=== PATIENT | female | born 1935 ===

== ENCOUNTER 2024-03-10 09:42 | Inpatient (IN) | payer OTHER, SELFPAY ==
[2024-03-10] VITALS (8 sets, daily range): BP systolic 106–182; BP diastolic 55–79; PULSE 74–95; RESP 14–24; TEMP 36.9–37.5; O2SAT 94–99; BMI 29.9
--- NOTE | ~2024-03-10 | CT_ITS ---
EXAMINATION: CT ABDOMEN AND PELVIS WITHOUT CONTRAST CLINICAL INFORMATION: Peritoneal abdomen COMPARISON: None available. TECHNIQUE: Multidetector volumetric imaging was performed from the superior aspect of the liver through the pubic symphysis. Sagittal and coronal reformatted images were obtained on the technologist's workstation. This CT examination was performed using dose optimization techniques as appropriate, variously including the following: *Automated exposure control *Adjustment of mA and/or kV according to patient size (this includes techniques or standardized protocols for targeted exams where dose is matched to indication/reason for exam; i.e. extremities or head) *Use of iterative reconstruction technique DLP: 491 mGy-cm FINDINGS: LUNG BASES: Emphysematous changes bibasilar atelectasis versus scarring. No pneumothorax. No large pleural effusion. Slight elevation right hemidiaphragm. LIVER, GALLBLADDER, AND BILIARY TREE: The liver is normal in size, shape, and attenuation. No focal hepatic lesion or biliary ductal dilatation is present. Intraluminal gallbladder calculi without wall thickening. Trace pericholecystic fluid is nonspecific in the setting of ascites. PANCREAS: Pancreas appears edematous with peripancreatic inflammatory changes and fluid greatest along the head tracking into the right upper quadrant and bilateral paracolic gutters suggesting pancreatitis. SPLEEN: Unremarkable. ADRENAL GLANDS: Unremarkable. KIDNEYS AND URETERS: The kidneys are normal in size, shape, and attenuation. No hydronephrosis, hydroureter, or calculi seen. No perinephric stranding. BLADDER: Unremarkable. GASTROINTESTINAL TRACT: Mild thickening of the level of the duodenum which may reflect reactive changes from pancreatitis. Colonic diverticulosis without acute diverticulitis. Surgical anastomosis level of the sigmoid colon. The small and large bowel are unremarkable. The appendix is not definitively visualized. ABDOMINAL WALL: No significant hernia is appreciated. LYMPH NODES/MESENTERY: No enlarged lymph nodes per size criteria. Free fluid noted along the right peripancreatic space, right paracolic gutter and to lesser extent the left paracolic gutter. VASCULAR: Abdominal aorta is nonaneurysmal. PELVIC VISCERA: Anteverted uterus. Calcifications along the uterine fundus potentially representing calcified fibroids. OSSEOUS STRUCTURES: Osteopenia. Slight grade 1 anterolisthesis of L4 and L5. Multilevel degenerative changes of the thoracolumbar lumbosacral spine. CT/CT abdomen pelvis wo IV con IMPRESSION: 1. Pancreas appears edematous with peripancreatic inflammatory changes and fluid greatest along the head tracking into the right upper quadrant and bilateral paracolic gutters suggesting pancreatitis. 2. Mild thickening of the level of the duodenum which may reflect reactive changes from pancreatitis. 3. Intraluminal gallbladder calculi without wall thickening. Trace pericholecystic fluid is nonspecific in the setting of ascites. 4. Colonic diverticulosis without acute diverticulitis.
--- NOTE | ~2024-03-10 | US_ITS ---
EXAMINATION: US ABDOMEN LIMITED CLINICAL INFORMATION: Gallstones/pancreatitis. COMPARISON: CT abdomen and pelvis 03/10/2024. TECHNIQUE: Real-time imaging of the right upper quadrant abdominal viscera. Technically limited study secondary to body habitus. FINDINGS: PANCREAS: Normal. The visualized pancreatic head and body are normal in appearance. The remainder of the pancreas is obscured from visualization by the overlying bowel gas. LIVER: Normal. The liver is normal in size. The liver contour is normal. Parenchymal echogenicity is normal. No focal hepatic lesion. There is no intrahepatic biliary duct dilatation seen. GALLBLADDER: The gallbladder is physiologically distended. Multiple mobile gallstones are present. No evidence of gallbladder wall thickening or pericholecystic fluid. COMMON BILE DUCT: Normal in caliber measuring 0.4 cm in diameter. RIGHT KIDNEY: Limited. No hydronephrosis. No renal calculi or focal parenchymal lesions. The kidney measures 7.6 cm in maximum dimension. FREE FLUID: None. US/US abdomen limited IMPRESSION: 1. There is cholelithiasis. 2. Technically limited ultrasound examination of the pancreas and right kidney.
--- NOTE | ~2024-03-10 | FL_ITS ---
EXAMINATION: XR FLUOROSCOPY WITH IMAGES CLINICAL INFORMATION: Cholangiogram. COMPARISON: MRCP. TECHNIQUE: Fluoroscopy Supervised By: Dr. Albino Cabrera Fluoroscopy Time: 1.8 minutes Cumulative Dose: 79.4 mGy-cm DAP: 21.6 Gy-cm2 Images: 8. FINDINGS: Imaging from an intraoperative cholangiogram is obtained which demonstrates filling of the cystic duct as well as common bile duct. There may be some extravasation of contrast seen around the donal hepatis and the pancreatic duct. No definite filling defects are seen. Please see Dr. Albino Cabrera's procedure note for full details FL/FL guidance in OR IMPRESSION: Fluoroscopy and spot films provided during intraoperative cholangiogram.
--- NOTE | ~2024-03-10 | MR_ITS ---
EXAMINATION: MR ABDOMEN WITHOUT CONTRAST CLINICAL INFORMATION: Rule out common bile duct stone. COMPARISON: Previous CT of the abdomen and pelvis and abdominal ultrasound 03/10/2024. TECHNIQUE: MR abdomen is performed without gadolinium contrast. MRCP sequences were also performed. FINDINGS: LUNG BASES: The visualized lung bases are unremarkable. LIVER, GALLBLADDER, AND BILIARY TREE: Slightly scalloped or nodular contour of the liver questionable for mild cirrhotic change. Liver is normal in signal without evidence of significant fatty infiltration. No focal liver lesion. The gallbladder is upper normal in size. There are small gallstones. The gallbladder wall upper normal in thickness measuring 3 mm. There is a small amount of pericholecystic fluid. There is a small amount of generalized ascites. There is no intra or extrahepatic biliary duct dilatation. The common bile duct measures 5 mm. No filling defect is seen. PANCREAS: There may be interstitial edema in the head of the pancreas. The pancreas is otherwise normal in signal. The pancreas is slightly prominent, head of the pancreas measuring 3.3 cm. There is stranding of the surrounding fat and small amount of fluid surrounding the pancreas and in the left anterior pararenal fascia and lateral conal fascia questionable for mild pancreatitis. There is irregularity of the main pancreatic duct with areas of dilatation and narrowing. Pancreatic duct measures maximum 5 mm in the head/neck of the pancreas. No filling defect seen. There may be abnormal pancreatic duct anatomy with continuation of the duct of [place]or[place]. SPLEEN: Unremarkable. ADRENAL GLANDS: Unremarkable. KIDNEYS AND URETERS: The kidneys are normal in size and shape. No hydronephrosis. Small bilateral renal cysts. No imaging follow up recommended. GASTROINTESTINAL TRACT: No bowel obstruction. No ascites or fluid collection. ABDOMINAL WALL: No significant hernia is appreciated. LYMPH NODES: No lymphadenopathy. VASCULAR: Unremarkable. OSSEOUS STRUCTURES: Marrow signal normal. MR/MR MRCP IMPRESSION: 1. Question mild cirrhotic changes of the liver. No intra or extrahepatic biliary duct dilatation or filling defect in the common bile duct to suggest stone. 2. Gallstones. Gallbladder upper normal in size with upper normal-size gallbladder wall. Small amount of pericholecystic fluid. Findings are equivocal for cholecystitis. 3. Slightly prominent pancreas with a small amount of surrounding fluid and interstitial edema in the head of the pancreas questionable for acute pancreatitis. There is irregularity of the main pancreatic duct with areas of dilatation and narrowing. Main pancreatic duct measures up to 5 mm. May be aberrant pancreatic duct anatomy with continuation of the duct of [place].
[2024-03-10 10:32] LABS: Basophils Percent Auto 0.2 % (0-2); Hematocrit 38.7 % (37.0-47.0); Hemoglobin 13.2 g/dl (12.0-16.0); Imm Gran Abs Auto 0.05 X10*3/uL (0.00-0.03); Imm Gran Pct Auto 0.4 % (0.0-0.4); Lymphocytes Absolute Auto 0.3 X10*3/uL (1.2-4.9); Lymphocytes Percent Auto 2.4 % (20-40); MANUAL DIFF FLAG SCAN; Mean Corpuscular HGB Conc 34.1 g/dl (31.0-35.0); Mean Corpuscular Hemoglobin 31.4 pg (27.0-33.0); Mean Corpuscular Volume 92.1 fL (80.0-98.0); Mean Platelet Volume 10.5 fL (9.4-12.3); Monocytes Absolute Auto 0.8 X10*3/uL (0.1-1.2); Neutrophils Absolute Auto 11.3 x10*3/uL (2.0-8.3); Platelet Count 171 X10*3/uL (160-400); Red Cell Distribution Width 12.8 % (11.0-16.0); SCAN SMEAR FLAG 1; White Blood Count 12.5 X10*3/uL (4.8-10.8)
[2024-03-10 10:50] LABS: Alanine Aminotransferase 101 U/L (0-31); Albumin Level 3.8 g/dL (3.5-5.0); Alkaline Phosphatase 104 U/L (39-117); Anion Gap 15 (12-20); Aspartate Amino Transferase 275 U/L (5-31); Blood Urea Nitrogen 16 mg/dL (9-16); Calcium 9.6 mg/dL (8.4-10.2); Carbon Dioxide 25 mmol/L (22-29); Chloride 106 mmol/L (96-108); Creatinine Clr Calc Pharmacy 42.8; Estimated Glomerular Filt Rate > 60; Glucose Random 134 mg/dL (60-115); Potassium 3.9 mmol/L (3.3-5.1); Sodium 142 mmol/L (135-145); Total Protein 7.6 g/dL (6.5-8.0)
--- NOTE | 2024-03-10 10:52 | ED.ABDPAIN ---
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 patient with increased abdominal pain and vomiting starting last night. She denies any fever. MD elicited complaint: abdominal pain Onset (ago): hour(s) Pain Consistency: constant Location: diffuse Severity: moderate Radiation: back Related Data Allergies Allergy/AdvReac Type Severity Reaction Status Date / Time Iodinated Contrast Media Allergy Mild UNKNOWN Verified 03/10/24 09:56 [IV Dye, Iodine Containing] acetaminophen [From Percocet] AdvReac Mild ITCHING Verified 03/10/24 09:56 oxycodone [From Percocet] AdvReac Mild ITCHING Verified 03/10/24 09:56 Review of Systems Review of Systems Yes all other systems are reviewed and are negative Denies Sensory deficit (Neuro) PMFSH Social History Social History Smoked in Last 30 Days: No Use of substances other than those prescribed or required for medical reasons: No Advance Directives: No Advance Directives Information Provided: No Do you have a plan to hurt others: No Plan Physical Exam ED Vital Signs: Vital Signs - 24 hr 03/10/24 09:56 03/10/24 10:36 03/10/24 11:23 Temperature 99.2 F 99.5 F Pulse Rate 85 82 76 Respiratory Rate 18 20 14 Blood Pressure 182/71 H 169/59 H 136/64 Pulse Oximetry 97 99 94 Oxygen Delivery Method Room Air Room Air Room Air 03/10/24 12:33 Temperature Pulse Rate 94 Respiratory Rate 20 Blood Pressure 124/56 L Pulse Oximetry 95 Oxygen Delivery Method Room Air BMI result Body Mass Index 29.9 Const Other: elderly obese female in moderate pain Orientation/consciousness: oriented to person and patient oriented x3 Limitations: no limitations HENMT Head: Yes normal to inspection Ears: external ears normal General nose exam: Normal external nose present Mouth: Normal oral and palatal mucosa present and oropharynx normal Throat: Yes posterior oropharynx normal Eyes General: appearance normal, both eyes and all related structures Neck Neck: Yes normal visual inspection Chest Chest palpation & inspection: normal inspection of the chest Resp Auscultation: clear to auscultation bilaterally Cardio Jugular venous distension: no JVD Rate: regular rate Rhythm: regular rhythm Heart sounds: S1 normal heart sound present and S2 normal heart sound present GI Other: diffuse tenderness and guarding General: Yes no CVA tenderness Back/Spine/Pelvis Back: no CVA tenderness Skin General skin exam: no rashes or lesions noted Neuro General: oriented to person and patient oriented x3 Cranial nerves: Yes CN's II-XII intact bilaterally Motor exam (neuro): 5/5 motor strength present throughout Sensory Exam: No Sensory deficit (Neuro) Extrem General: Yes normal to inspection Psych Appearance: grossly normal Course Reevaluation(s) Reevaluation #1: patient with severe pancreatitis will admit. Time: 13:25 Reevaluation #2: I spent 40 minutes of critical care, with interventions, assessments, speaking to patient, consultants, and family. Time: 13:25 Medical Decision Making Differential Diagnosis Differential Diagnoses: The differential diagnosis associated with the presentation includes (bowel perforation, cholecystitis, gastritis, pancreatitis, hepatitis) Admission/Observation Consideration of admission/observation: Escalation of care including admission/observation considered (upon arrival patient was considered for admission) Consult Healthcare Provider Management of the patient was discussed with: Hospitalist Lab Data 03/10/24 10:26 03/10/24 10:26 Labs: Lab Results 03/10/24 Range/Units 10:26 WBC 12.5 H (4.8-10.8) X10*3/uL RBC 4.20 (4.20-5.50) X10*6/uL Hgb 13.2 (12.0-16.0) g/dl Hct 38.7 (37.0-47.0) % MCV 92.1 (80.0-98.0) fL MCH 31.4 (27.0-33.0) pg MCHC 34.1 (31.0-35.0) g/dl RDW 12.8 (11.0-16.0) % Plt Count 171 (160-400) X10*3/uL MPV 10.5 (9.4-12.3) fL Immature Gran % (Auto) 0.4 (0.0-0.4) % Neut % (Auto) 91.0 H (45-73) % Lymph % (Auto) 2.4 L (20-40) % [place] % (Auto) 6.0 (2-11) % Eos % (Auto) 0.0 (0-4) % Baso % (Auto) 0.2 (0-2) % Lymph # (Auto) 0.3 L (1.2-4.9) X10*3/uL [place] # (Auto) 0.8 (0.1-1.2) X10*3/uL Eos # (Auto) 0.0 (0.0-0.4) X10*3/uL Baso # (Auto) 0.0 (0.0-0.2) X10*3/uL Abs Immat Gran (auto) 0.05 H (0.00-0.03) X10*3/uL Absolute Neuts (auto) 11.3 H (2.0-8.3) x10*3/uL Absolute Nucleated RBC 0.000 (0.0-0.012) X10*3/uL Nucleated RBC % (auto) 0.0 (0.0-0.2) /100WBC Smear Tech's Comments VERIFIED Sodium 142 (135-145) mmol/L Potassium 3.9 (3.3-5.1) mmol/L Chloride 106 (96-108) mmol/L Carbon Dioxide 25 (22-29) mmol/L Anion Gap 15 (12-20) BUN 16 (9-16) mg/dL Creatinine 0.89 (0.5-1.4) mg/dL Estim Creat Clear Calc 42.8 Estimated GFR > 60 Random Glucose 134 H (60-115) mg/dL Calcium 9.6 (8.4-10.2) mg/dL Total Bilirubin 1.0 (0.0-1.0) mg/dL AST 275 H (5-31) U/L ALT 101 H (0-31) U/L Alkaline Phosphatase 104 (39-117) U/L Total Protein 7.6 (6.5-8.0) g/dL Albumin 3.8 (3.5-5.0) g/dL Lipase > 3000 H (8-78) U/L Independent Interpretation I performed an independent interpretation of an: CT Scan (pancreas edema with surrounding fuzzy fat) Radiology Impression Discussion of test interpretation with radiology: I have reviewed the radiologist's reading. Independent Historian Clinical information obtained from an independent historian. History obtained from or confirmed by: EMS Prescription Management I considered prescription management with: Antibiotic (no evidence of UTI will not give abx at this time) Medications Administered Generic Name Dose Route Start Last Admin Trade Name Freq PRN Reason Stop Dose Admin Sodium Chloride 1,000 mls @ 250 mls/hr 03/10/24 11:00 03/10/24 11:18 Ns IVCONT 03/10/24 14:59 250 mls/hr .Q4H ALANA Administration Discontinued Medications Generic Name Dose Route Start Last Admin Trade Name Freq PRN Reason Stop Dose Admin Morphine Sulfate 4 mg 03/10/24 11:33 03/10/24 11:57 Morphine Sulfate 4 Mg/Ml Cartridge IVPUSH 03/10/24 11:34 4 mg ONCE ONE Administration Protocol Ondansetron HCl 4 mg 03/10/24 10:49 03/10/24 11:18 Ondansetron Hcl 4 Mg/2 Ml Vial IVPUSH 03/10/24 10:50 4 mg ONCE ONE Administration Pantoprazole Sodium 40 mg 03/10/24 10:50 03/10/24 11:18 Pantoprazole Sodium 40 Mg/10 Ml Vial IVPUSH 03/10/24 10:51 40 mg ONCE ONE Administration Discharge Plan Discharge Clinical Impression: Pancreatitis Patient Disposition: Admitted As Inpatient Print Language: [place]
[2024-03-10 10:56] LABS: SLIDE REVIEW VERIFIED
[2024-03-10] MEDS: Pantoprazole Sodium 40 MG/10 ML VIAL IVPUSH (11:18)
[2024-03-10] MEDS: ondansetron HCL 4 MG/2 ML VIAL IVPUSH (11:18)
[2024-03-10] MEDS: 0.9 % Sodium Chloride 1,000 ML 250 ML IVCONT (11:18)
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
[2024-03-10 11:30] LABS: Lipase > 3000 U/L (8-78)
[2024-03-10] MEDS: Morphine Sulfate 4 MG/ML CARTRIDGE IVPUSH (11:57)
--- NOTE | 2024-03-10 14:48 | PHA.MEDREC ---
Pharmacy Consult ? Medication Reconciliation Pharmacy has completed the medication reconciliation. Patient states they take gabapentin 300mg BID instead of once daily. Patient states they take a yellow cap and dark blue cap eye drops . Called pharmacy and confirmed they only take latanoprost and combigan.
[2024-03-10 16:01] LABS: Appearance Urine Clear; Color Urine Dark Yellow; Glucose Urine UA Negative (Negative); Leukocyte Esterase Urine Small (1+) (Negative); Nitrite Urine Negative (Negative); Specific Gravity - Urine 1.015 (1.005-1.025); UMIC TRIGGER UACC YES; Urine Blood Trace (Negative); Urine Ketones Negative (Negative); Urine Protein 30 (1+) mg/dL (Neg-Trace)
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
[2024-03-10] MEDS: Lactated Ringers 1,000 ML 100 ML IVCONT (16:24)
[2024-03-10 16:35] LABS: Bacteria Urine None Seen (None Seen); Hyaline Casts Urine 0-2 /LPF (0-2); RBC Urine 0-2 /HPF (0-2); UACC Culture Trigger YES; WBC Urine 0-5 /HPF (0-5)
--- NOTE | 2024-03-10 16:57 | PM.GICN ---
History of Present Illness Data of Consult Service Date: 03/10/24 Requesting physician: Moraima Chan Primary Care Provider: Gisselle Christensen MD HPI Reason for consult: Acute pancreatitis, elevated LFTs 88 year old female with glaucoma and hypothyroidism seen at [facility] [place] [facility] on 03/10/2024 with 1 day history of abdominal pain, nausea and vomiting. Pt complains of feeling sick with nausea and vomiting (with some black specs) around 5 pm yesterday (about 2 hrs after having a meal) She lied down and woke up at 3 am with cramping abdominal pain and vomiting and was unable to sleep, called 911 and was brought to [facility] [place] [facility] Pt describes the pain as 10/10 in severity, generalized and associated with low back pain. Patient denies fever, chills or sweating. She noted some diarrhea yesterday and none today. She gives a hx of chronic back pain and was prescribed gabapentin which does not help. She reports her weight has been stable over the past several months. Patient denies a history of snoring or sleep apnea. He denies past or current history of smoking or ETOH abuse. Pt is a and lives alone, her son lives close by. 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 Patient denies known family history of colon polyps, colon cancer or GI malignancy 03/10/[address] SCAN SHOWED: 1. Pancreas appears edematous with peripancreatic inflammatory changes and fluid greatest along the head tracking into the right upper quadrant and bilateral paracolic gutters suggesting pancreatitis. 2. Mild thickening of the level of the duodenum which may reflect reactive changes from pancreatitis. 3. Intraluminal gallbladder calculi without wall thickening. Trace pericholecystic fluid is nonspecific in the setting of ascites. 4. Colonic diverticulosis without acute diverticulitis. Review of Systems Review of Systems: Denies any recent fever chills or decrease in appetite respiratory denies any shortness of breath or cough cardiovascular denied chest pain gastrointestinal denies any dysphagia abdominal pain nausea vomiting or diarrhea genitourinary denies any dysuria frequency or hematuria musculoskeletal denies any joint pain or swelling neuropsych denies any weakness or seizures all other systems reviewed are negative PMFSH Past Medical History Medical History Glaucoma Hypothyroidism Social History Social History Household Members: None Household Members Other:: Lives alone Housing: Apartment Do you presently have visiting nurse or other home services: Yes Alcohol intake: never Patient Tobacco Use Status: Never used Tobacco Second Hand Smoke Exposure: No service: No Meds Allergies Allergy/AdvReac Type Severity Reaction Status Date / Time Iodinated Contrast Media Allergy Severe Difficulty Verified 03/11/24 09:32 [IV Dye, Iodine Containing] Breathing acetaminophen [From Percocet] AdvReac Mild ITCHING Verified 03/10/24 09:56 oxycodone [From Percocet] AdvReac Mild ITCHING Verified 03/10/24 09:56 Active Medications: Current Medications Acetaminophen (Acetaminophen 325 Mg Tablet) 650 mg PO Q6H PRN PRN Reason: Pain, Mild (Pain Scale 1-3), fever or headache Brimonidine Tartrate (Brimonidine Tartrate 0.2% Oph 5 Ml Bottle) 1 drop EYE-BOTH BID [facility] Calcium Carbonate (Calcium Carbonate 750 Mg Tab.Chew) 750 mg PO Q4H PRN PRN Reason: Heartburn Calcium Carbonate/Cholecalciferol (Calcium + Vitamin D 250 Mg Tablet) 500 mg PO BID [facility] Gabapentin (Gabapentin 300 Mg Capsule) 300 mg PO BID [facility] Lactated Ringer's (Lr) 1,000 mls @ 100 mls/hr IVCONT .Q10H [facility] Last Admin: 03/10/24 16:24 Dose: 100 mls/hr Latanoprost (Latanoprost 0.005 % Ophth Sheila 2.5 Ml Drops) 1 drop EYE-BOTH BEDTIME [facility] Levothyroxine Sodium (Levothyroxine Sodium 75 Mcg Tablet) 75 mcg PO DAILY@0600 [facility] Magnesium Hydroxide (Milk Of Magnesia 30 Ml Oral.Susp) 30 ml PO DAILY PRN PRN Reason: Constipation Melatonin (Melatonin 3 Mg Tablet) 6 mg PO BEDTIME PRN PRN Reason: Insomnia Melatonin (Melatonin 3 Mg Tablet) 6 mg PO BEDTIME [facility] Multivitamins/Vitamin C (Multivitamin Tablet) 1 tab PO DAILY [facility] Ondansetron HCl (Ondansetron Hcl 4 Mg/2 Ml Vial) 4 mg IVPUSH Q8H PRN PRN Reason: Nausea and Vomiting Sodium Chloride (0.9 % Sodium Chloride Flush 3 Ml Syringe) 3 ml IVFLUSH QSHIFT [facility] Timolol Maleate (Timolol Maleate 0.5 % Oph Sheila 5 Ml Drbtl) 1 drop EYE-BOTH BID [facility] Home Medications ?Medication ?Instructions ?Recorded ?Confirmed ?Last Taken ?Type acetaminophen 325 mg tablet 650 mg PO Q6H PRN Pain 03/10/24 03/10/24 Unknown History (Tylenol) brimonidine 0.2 %-timolol 0.5 % 1 drp ophthalmic (eye) BID 03/10/24 03/10/24 03/09/24 History eye drops (Combigan) calcium carbonate 600 mg-vitamin 1 tab PO BID 03/10/24 03/10/24 03/09/24 History D3 10 mcg (400 unit) tablet gabapentin 300 mg capsule 300 mg PO BID 03/10/24 03/10/24 03/09/24 History latanoprost 0.005 % eye drops 1 drp ophthalmic (eye) BEDTIME 03/10/24 03/10/24 03/09/24 History levothyroxine 75 mcg tablet 75 mcg PO DAILY@0600 03/10/24 03/10/24 03/09/24 History melatonin 5 mg tablet 5 mg PO BEDTIME 03/10/24 03/10/24 03/09/24 History multivitamin with folic acid 400 1 tab PO DAILY 03/10/24 03/10/24 03/09/24 History mcg tablet (Daily-Vira (with folic acid)) Physical Exam Vital Signs: Vital Signs: Last Vital Signs Temp 98.8 F 03/10/24 15:21 Pulse 93 03/10/24 15:21 Resp 18 03/10/24 15:21 BP 106/79 03/10/24 15:21 Pulse Ox 95 03/10/24 15:21 O2 Del Method Room Air 03/10/24 15:21 BMI result Body Mass Index 29.9 Const: General: in distress (due to abdominal pain) Nutritional Appearance: overweight Orientation/consciousness: patient oriented x3 Limitations: language barrier (is able to converse in Maltese) HEENT: Head: Yes normal to inspection Ears: hearing grossly normal bilaterally Eyes: Sclerae: sclerae normal Pupils: Equal, round and reactive pupils present Neck: Neck: Yes normal visual inspection Chest: Chest palpation & inspection: normal inspection of the chest Resp: Effort & Inspection: normal respiratory effort Auscultation: clear to auscultation bilaterally Cardio: Palpation: normal PMI Rate: regular rate Rhythm: regular rhythm Heart sounds: S1 normal heart sound present, S2 normal heart sound present and no murmurs GI: Palpation (GI): Soft to palpation, nontender and No hepatosplenomegaly present Auscultation: normal bowel sounds Rectal Exam - Female: deferred Skin: General skin exam: no rashes or lesions noted Neuro: General: patient oriented x3, gait normal and moves all extremities Cranial nerves: Yes Equal, round and reactive pupils present Psych: Appearance: grossly normal Mental Status: mental status grossly normal Results Labs 03/16/24 05:26 03/16/24 05:26 Labs: Short CBC 03/10/24 Range/Units 10:26 WBC 12.5 H (4.8-10.8) X10*3/uL Hgb 13.2 (12.0-16.0) g/dl Hct 38.7 (37.0-47.0) % Plt Count 171 (160-400) X10*3/uL BMP 03/10/24 10:26 Sodium 142 Potassium 3.9 Chloride 106 Carbon Dioxide 25 BUN 16 Creatinine 0.89 Calcium 9.6 Liver Function 03/10/24 Range/Units 10:26 Total Bilirubin 1.0 (0.0-1.0) mg/dL AST 275 H (5-31) U/L ALT 101 H (0-31) U/L Alkaline Phosphatase 104 (39-117) U/L Albumin 3.8 (3.5-5.0) g/dL Urine 03/10/24 Range/Units 15:48 Urine Color Dark Yellow Urine Appearance Clear Urine pH 7.0 (5.0-9.0) Ur Specific [place] 1.015 (1.005-1.025) Urine Protein 30 (1+) H (Neg-Trace) mg/dL Urine Glucose (UA) Negative (Negative) mg/dL Assessment and Plan (1) Cholelithiasis: Status: Acute (2) Elevated LFTs: Status: Acute (3) Pancreatitis: Status: Acute Plan 88 YF with glaucoma and hypothyroidism seen at [facility] [place] [facility] on 03/10/2024 with 1 day history of abdominal pain, nausea and vomiting. He denies past or current history of smoking or ETOH abuse. Labs showed Lipase of > 3000, AST 275 and ALT 101 with normal bilirubin and alkaline phosphatase Pt likely has biliary pancreatitis related to gallstones. 03/10/[address] SCAN SHOWED: 1. Pancreas appears edematous with peripancreatic inflammatory changes and fluid greatest along the head tracking into the right upper quadrant and bilateral paracolic gutters suggesting pancreatitis. 2. Mild thickening of the level of the duodenum which may reflect reactive changes from pancreatitis. 3. Intraluminal gallbladder calculi without wall thickening. Trace pericholecystic fluid is nonspecific in the setting of ascites. RECOMMENDATIONS: 1. Bowel rest with IV hydration with lactated Ringer's and IV antiemetics and pain medications 2. Check Triglyceride levels (pending)Follow renal function, calcium, phosphorus, magnesium and lipase daily 3. If LFTs do not improve, obtain an MRCP to rule out choledocholithiasis (May need an ERCP if MRCP shows CBD obstruction) 4. General surgery consult to evaluated foe Lap Erlinda after pancreatitis resolves ADDENDUM: DISCHARGE SUMMARY: 88-year-old woman treated for acute gallstone pancreatitis. Lipase initially greater than 3000, triglycerides 70. Abdominal ultrasound showing multiple mobile gallstones. MRCP showed gallstones and cholecystitis. She was treated with IV fluids and pain medication. Status post laparoscopic cholecystectomy on 03/13/2024. Diet was advanced, patient has been able to eat. She did have some constipation that was treated with MiraLax and suppositories. She reports still having some mild abdominal pain, seen and evaluated by General surgery who thinks this is related to incisional pain. Physical therapy evaluated the patient recommended short-term rehab but patient does not want to go and would rather return home with services. Procedures Date of Service Date of Service: 03/19/24
[2024-03-10 17:06] LABS: Triglycerides 70 mg/dL (<150)
[2024-03-10] MEDS: Acetaminophen 325 MG TABLET 650 MG PO (18:04)
[2024-03-10] MEDS: Morphine Sulfate 2 MG/ML CARTRIDGE 0.5 MG IVPUSH (19:45)
[2024-03-10] MEDS: Calcium + Vitamin D 250 MG TABLET 500 MG PO (20:57)
[2024-03-10] MEDS: Gabapentin 300 MG CAPSULE PO (20:57)
[2024-03-10] MEDS: Melatonin 3 MG TABLET 6 MG PO (20:57)
[2024-03-10] MEDS: timoloL maleate 0.5 % Oph Sol 5 ML DRBTL 1 DROP EYE-BOTH (20:57)
[2024-03-10] MEDS: Brimonidine Tartrate 0.2% Oph 5 ML BOTTLE 1 DROP EYE-BOTH (20:58)
[2024-03-10] MEDS: Latanoprost 0.005 % Ophth Sol 2.5 ML DROPS 1 DROP EYE-BOTH (20:58)
--- NOTE | 2024-03-10 22:27 | PC.NURSE ---
Patient medicated for PM, c/o abd pain medicated per NOV, informed patient she will be NPO after midnight, continues to be clears only now, iv fluids infusing, patient's eye drops at bedside.
[2024-03-11] VITALS (8 sets, daily range): BP systolic 124–169; BP diastolic 71–96; PULSE 79–88; RESP 17–18; TEMP 36.4–36.7; O2SAT 86–95
[2024-03-11] MEDS: Lactated Ringers 1,000 ML 100 ML IVCONT ×2 (03:18→13:27)
[2024-03-11] MEDS: 0.9 % Sodium Chloride Flush 3 ML SYRINGE IVFLUSH (03:19)
[2024-03-11 06:07] LABS: MANUAL DIFF FLAG NO
[2024-03-11 06:12] LABS: Basophils Percent Auto 0.1 % (0-2); Eosinophils Percent Auto 0.3 % (0-4); Hematocrit 36.3 % (37.0-47.0); Hemoglobin 12.1 g/dl (12.0-16.0); Imm Gran Abs Auto 0.08 X10*3/uL (0.00-0.03); Imm Gran Pct Auto 0.8 % (0.0-0.4); Lymphocytes Absolute Auto 1.6 X10*3/uL (1.2-4.9); Lymphocytes Percent Auto 15.7 % (20-40); Mean Corpuscular HGB Conc 33.3 g/dl (31.0-35.0); Mean Corpuscular Hemoglobin 31.8 pg (27.0-33.0); Mean Corpuscular Volume 95.3 fL (80.0-98.0); Mean Platelet Volume 10.3 fL (9.4-12.3); Monocytes Absolute Auto 0.9 X10*3/uL (0.1-1.2); Monocytes Percent Auto 8.9 % (2-11); Neutrophils Absolute Auto 7.7 x10*3/uL (2.0-8.3); Neutrophils Percent Auto 74.2 % (45-73); Platelet Count 136 X10*3/uL (160-400); Red Blood Count 3.81 X10*6/uL (4.20-5.50); Red Cell Distribution Width 13.3 % (11.0-16.0); White Blood Count 10.4 X10*3/uL (4.8-10.8)
[2024-03-11 06:22] LABS: Alanine Aminotransferase 65 U/L (0-31); Albumin Level 3.2 g/dL (3.5-5.0); Alkaline Phosphatase 80 U/L (39-117); Anion Gap 10 (12-20); Aspartate Amino Transferase 116 U/L (5-31); Bilirubin Direct 0.3 mg/dL (0.0-0.5); Bilirubin Total 0.8 mg/dL (0.0-1.0); Blood Urea Nitrogen 18 mg/dL (9-16); Calcium 8.6 mg/dL (8.4-10.2); Carbon Dioxide 29 mmol/L (22-29); Chloride 108 mmol/L (96-108); Creatinine Clr Calc Pharmacy 50.7; Estimated Glomerular Filt Rate > 60; Glucose Random 77 mg/dL (60-115); Potassium 4.2 mmol/L (3.3-5.1); Sodium 143 mmol/L (135-145); Total Protein 6.3 g/dL (6.5-8.0)
[2024-03-11 06:33] LABS: Lipase 1412 U/L (8-78)
[2024-03-11] MEDS: Multivitamin TABLET 1 TAB PO (07:54)
[2024-03-11] MEDS: timoloL maleate 0.5 % Oph Sol 5 ML DRBTL 1 DROP EYE-BOTH ×2 (07:54→21:10)
[2024-03-11] MEDS: Brimonidine Tartrate 0.2% Oph 5 ML BOTTLE 1 DROP EYE-BOTH ×2 (07:54→21:11)
[2024-03-11] MEDS: Gabapentin 300 MG CAPSULE PO ×2 (07:54→21:10)
[2024-03-11] MEDS: Morphine Sulfate 2 MG/ML CARTRIDGE 0.5 MG IVPUSH (07:54)
[2024-03-11] MEDS: Calcium + Vitamin D 250 MG TABLET 500 MG PO ×2 (07:54→21:09)
--- NOTE | 2024-03-11 08:34 | HO.PM.IMPN ---
Subjective Subjective Date of Service: 03/11/24 Review of Systems Follow up pancreatitis still with abd pain, no vomiting Physical Exam Vital Signs: Vital Signs: Last Vital Signs Temp 98 F 03/11/24 06:54 Pulse 79 03/11/24 06:54 Resp 18 03/11/24 07:54 BP 124/96 H 03/11/24 06:54 Pulse Ox 95 03/11/24 06:54 O2 Del Method Nasal Cannula 03/11/24 06:54 O2 Flow Rate 2 03/11/24 06:54 BMI result Body Mass Index 30.0 Appearing in no acute distress lung sounds are clear to auscultation heart regular rate rhythm, clear S1, S2 positive bowel sounds, abdomen is soft, diffusely tender neuro patient is alert x3, no focal deficits Objective Data Active Medications Acetaminophen (Acetaminophen 325 Mg Tablet) 650 mg PO Q6H PRN PRN Reason: Pain, Mild (Pain Scale 1-3), fever or headache Last Admin: 03/10/24 18:04 Dose: 650 mg Documented By: ESVIN Brimonidine Tartrate (Brimonidine Tartrate 0.2% Oph 5 Ml Bottle) 1 drop EYE-BOTH BID [facility] Last Admin: 03/11/24 07:54 Dose: 1 drop Documented By: COTEMA Calcium Carbonate (Calcium Carbonate 750 Mg Tab.Chew) 750 mg PO Q4H PRN PRN Reason: Heartburn Calcium Carbonate/Cholecalciferol (Calcium + Vitamin D 250 Mg Tablet) 500 mg PO BID [facility] Last Admin: 03/11/24 07:54 Dose: 500 mg Documented By: COTEMA Gabapentin (Gabapentin 300 Mg Capsule) 300 mg PO BID [facility] Last Admin: 03/11/24 07:54 Dose: 300 mg Documented By: COTEMA Lactated Ringer's (Lr) 1,000 mls @ 100 mls/hr IVCONT .Q10H [facility] Last Admin: 03/11/24 03:18 Dose: 100 mls/hr Documented By: MONTEIR Latanoprost (Latanoprost 0.005 % Ophth Sheila 2.5 Ml Drops) 1 drop EYE-BOTH BEDTIME [facility] Last Admin: 03/10/24 20:58 Dose: 1 drop Documented By: MOELC Levothyroxine Sodium (Levothyroxine Sodium 75 Mcg Tablet) 75 mcg PO DAILY@0600 [facility] Last Admin: 03/11/24 07:04 Dose: Not Given Documented By: COTEMA Non-Admin Reason: Not In Room Magnesium Hydroxide (Milk Of Magnesia 30 Ml Oral.Susp) 30 ml PO DAILY PRN PRN Reason: Constipation Melatonin (Melatonin 3 Mg Tablet) 6 mg PO BEDTIME PRN PRN Reason: Insomnia Melatonin (Melatonin 3 Mg Tablet) 6 mg PO BEDTIME [facility] Last Admin: 03/10/24 20:57 Dose: 6 mg Documented By: DITOLC Morphine Sulfate (Morphine Sulfate 2 Mg/Ml Cartridge) 0.5 mg IVPUSH Q4H PRN; Protocol PRN Reason: Pain, Severe (Pain Scale 7-10) Last Admin: 03/11/24 07:54 Dose: 0.5 mg Documented By: SILVESTRE Multivitamins/Vitamin C (Multivitamin Tablet) 1 tab PO DAILY [facility] Last Admin: 03/11/24 07:54 Dose: 1 tab Documented By: SILVESTRE Ondansetron HCl (Ondansetron Hcl 4 Mg/2 Ml Vial) 4 mg IVPUSH Q8H PRN PRN Reason: Nausea and Vomiting Sodium Chloride (0.9 % Sodium Chloride Flush 3 Ml Syringe) 3 ml IVFLUSH QSHIFT [facility] Last Admin: 03/11/24 07:04 Dose: Not Given Documented By: SILVESTRE Non-Admin Reason: IV Running Timolol Maleate (Timolol Maleate 0.5 % Oph Sheila 5 Ml Drbtl) 1 drop EYE-BOTH BID [facility] Last Admin: 03/11/24 07:54 Dose: 1 drop Documented By: SILVESTRE Labs 03/11/24 05:59 03/11/24 05:59 Labs: Laboratory Results - last 24 hr 03/10/24 03/10/24 03/11/24 10:26 15:48 05:59 MCV 92.1 95.3 MCH 31.4 31.8 MCHC 34.1 33.3 RDW 12.8 13.3 Plt Count 171 136 L MPV 10.5 10.3 Immature Gran % (Auto) 0.4 0.8 H Neut % (Auto) 91.0 H 74.2 H Lymph % (Auto) 2.4 L 15.7 L [place] % (Auto) 6.0 8.9 Eos % (Auto) 0.0 0.3 Baso % (Auto) 0.2 0.1 Lymph # (Auto) 0.3 L 1.6 [place] # (Auto) 0.8 0.9 Eos # (Auto) 0.0 0.0 Baso # (Auto) 0.0 0.0 Abs Immat Gran (auto) 0.05 H 0.08 H Absolute Neuts (auto) 11.3 H 7.7 Absolute Nucleated RBC 0.000 0.000 Nucleated RBC % (auto) 0.0 0.0 Smear Tech's Comments VERIFIED Anion Gap 15 10 L Estim Creat Clear Calc 42.8 50.7 Estimated GFR > 60 > 60 Random Glucose 134 H 77 Calcium 9.6 8.6 D Magnesium 2.0 Total Bilirubin 1.0 0.8 Direct Bilirubin 0.3 AST 275 H 116 H ALT 101 H 65 H Alkaline Phosphatase 104 80 Total Protein 7.6 6.3 L Albumin 3.8 3.2 L Triglycerides 70 Lipase > 3000 H 1412 H Urine Color Dark Yellow Urine Appearance Clear Urine pH 7.0 Ur Specific [place] 1.015 Urine Protein 30 (1+) H Urine Glucose (UA) Negative Urine Ketones Negative Urine Blood Trace H Urine Nitrite Negative Ur Leukocyte Esterase Small (1+) H Urine RBC 0-2 Urine WBC 0-5 Ur Squamous Epith Cells 3-5 Urine Bacteria None Seen Hyaline Casts 0-2 Assessment and Plan (1) Cholelithiasis: Status: Acute (2) Elevated LFTs: Status: Acute Plan 88 year old women with abdominal pain, and vomiting with abd ct showing pancreatitis Acute pancreatitis with transaminitis lipase initially >3000, down to 1412 triglycerides>70 unknown etiology, ? CBD stone no hx of alcohol abuse GI consult>continue fluids, bowel rest, follow LFT and lipase, gen surg for possible ccy clear liquids Hx of glaucoma continue home eye drops Hypothyroidism continue levothyroxine Chronic hip pain On gabapentin DVT prophylaxis with SCD boots attending Dr. Romero Full code continue hospital tx of acute pancreatitis requiring specialty consultation, and IV fluids Quality Stroke Does the patient have a stroke diagnosis?: No VTE Prior VTE?: No VTE Risk Level:: Medical - moderate - high VTE Device Contraindication: N/A - Device Ordered VTE Drug Contraindication: Treatment Not Indicated
--- NOTE | 2024-03-11 09:57 | MHC.CM.PN ---
IMM 03/11. This CM met with pt with the assistance of ceo and co founder but pt also understood Ukrainian. Pt lives alone, uses a walker, and states she has a visiting nurse every 4 months from her insurance company. Pt states she will need assistance with transport home. New HCP completed with pt, now on file. PCP/Dr. Gisselle Christensen
[2024-03-11] MEDS: Morphine Sulfate 2 MG/ML CARTRIDGE 1 MG IVPUSH ×2 (12:31→17:28)
[2024-03-11] MEDS: Melatonin 3 MG TABLET 6 MG PO (21:10)
[2024-03-11] MEDS: Latanoprost 0.005 % Ophth Sol 2.5 ML DROPS 1 DROP EYE-BOTH (21:11)
[2024-03-12 03:27] VITALS: BP 141/63; PULSE 78; RESP 18; TEMP 36.6; O2SAT 94
[2024-03-12] MEDS: Lactated Ringers 1,000 ML 100 ML IVCONT ×3 (04:37→23:47)
[2024-03-12] MEDS: Levothyroxine Sodium 75 MCG TABLET PO (05:32)
[2024-03-12] MEDS: Morphine Sulfate 2 MG/ML CARTRIDGE 1 MG IVPUSH ×3 (05:37→20:21)
[2024-03-12 06:34] LABS: Anion Gap 10 (12-20); Blood Urea Nitrogen 14 mg/dL (9-16); Calcium 8.7 mg/dL (8.4-10.2); Carbon Dioxide 26 mmol/L (22-29); Chloride 105 mmol/L (96-108); Creatinine Clr Calc Pharmacy 62.5; Estimated Glomerular Filt Rate > 60; Glucose Random 71 mg/dL (60-115); Sodium 137 mmol/L (135-145)
[2024-03-12 07:45] VITALS: BP 133/60; PULSE 79; RESP 20; TEMP 36.3; O2SAT 95
[2024-03-12 08:14] LABS: Alanine Aminotransferase 43 U/L (0-31); Albumin Level 2.9 g/dL (3.5-5.0); Alkaline Phosphatase 69 U/L (39-117); Aspartate Amino Transferase 74 U/L (5-31); Bilirubin Direct 0.3 mg/dL (0.0-0.5); Bilirubin Total 0.6 mg/dL (0.0-1.0); Lipase 154 U/L (8-78); Total Protein 5.9 g/dL (6.5-8.0)
[2024-03-12] MEDS: Calcium + Vitamin D 250 MG TABLET 500 MG PO ×2 (08:30→20:23)
[2024-03-12] MEDS: timoloL maleate 0.5 % Oph Sol 5 ML DRBTL 1 DROP EYE-BOTH ×2 (08:30→20:29)
[2024-03-12] MEDS: Multivitamin TABLET 1 TAB PO (08:30)
[2024-03-12] MEDS: Brimonidine Tartrate 0.2% Oph 5 ML BOTTLE 1 DROP EYE-BOTH ×2 (08:30→20:24)
[2024-03-12] MEDS: Gabapentin 300 MG CAPSULE PO ×2 (08:30→20:23)
--- NOTE | 2024-03-12 10:25 | P.CONGS_ITS ---
History of Present Illness Consult details Consult date: 03/12/24 Narrative: Patient is a relatively healthy 88-year-old female who presented here with a epigastric upper abdominal pain. Workup including ultrasound, labs, and MRCP consistent with gallstone pancreatitis. Patient's symptoms started approximately 3 days ago. Patient states her symptoms have moderately have improved. She has never been jaundiced before. She has never had such symptoms before. She has no other significant GI issues or complaints. Initial lipase was greater than 1500. Today is proximally 150. Chart was reviewed and patient evaluated [facility] Past Medical History Medical History (Updated 03/12/24 @ 10:28 by Albino Cabrera MD) Glaucoma Hypothyroidism Social History Social History (Updated 03/10/24 @ 17:23 by Moraima Chan NP) Household Members: None Household Members Other:: Lives alone Housing: Apartment Do you presently have visiting nurse or other home services: Yes Alcohol intake: never Patient Tobacco Use Status: Never used Tobacco service: No Meds Allergies Allergy/AdvReac Type Severity Reaction Status Date / Time Iodinated Contrast Media Allergy Severe Difficulty Verified 03/11/24 09:32 [IV Dye, Iodine Containing] Breathing acetaminophen [From Percocet] AdvReac Mild ITCHING Verified 03/10/24 09:56 oxycodone [From Percocet] AdvReac Mild ITCHING Verified 03/10/24 09:56 Active Medications: Current Medications Acetaminophen (Acetaminophen 325 Mg Tablet) 650 mg PO Q6H PRN PRN Reason: Pain, Mild (Pain Scale 1-3), fever or headache Last Admin: 03/10/24 18:04 Dose: 650 mg Brimonidine Tartrate (Brimonidine Tartrate 0.2% Oph 5 Ml Bottle) 1 drop EYE- BOTH BID [facility] Last Admin: 03/12/24 08:30 Dose: 1 drop Calcium Carbonate (Calcium Carbonate 750 Mg Tab.Chew) 750 mg PO Q4H PRN PRN Reason: Heartburn Calcium Carbonate/Cholecalciferol (Calcium + Vitamin D 250 Mg Tablet) 500 mg PO BID [facility] Last Admin: 03/12/24 08:30 Dose: 500 mg Gabapentin (Gabapentin 300 Mg Capsule) 300 mg PO BID [facility] Last Admin: 03/12/24 08:30 Dose: 300 mg Lactated Ringer's (Lr) 1,000 mls @ 100 mls/hr IVCONT .Q10H [facility] Last Admin: 03/12/24 04:37 Dose: 100 mls/hr Latanoprost (Latanoprost 0.005 % Ophth Sheila 2.5 Ml Drops) 1 drop EYE-BOTH BEDTIME [facility] Last Admin: 03/11/24 21:11 Dose: 1 drop Levothyroxine Sodium (Levothyroxine Sodium 75 Mcg Tablet) 75 mcg PO DAILY@0600 [facility] Last Admin: 03/12/24 05:32 Dose: 75 mcg Magnesium Hydroxide (Milk Of Magnesia 30 Ml Oral.Susp) 30 ml PO DAILY PRN PRN Reason: Constipation Melatonin (Melatonin 3 Mg Tablet) 6 mg PO BEDTIME PRN PRN Reason: Insomnia Melatonin (Melatonin 3 Mg Tablet) 6 mg PO BEDTIME [facility] Last Admin: 03/11/24 21:10 Dose: 6 mg Morphine Sulfate (Morphine Sulfate 2 Mg/Ml Cartridge) 1 mg IVPUSH Q4H PRN; Protocol PRN Reason: Pain, Severe (Pain Scale 7-10) Last Admin: 03/12/24 05:37 Dose: 1 mg Multivitamins/Vitamin C (Multivitamin Tablet) 1 tab PO DAILY [facility] Last Admin: 03/12/24 08:30 Dose: 1 tab Ondansetron HCl (Ondansetron Hcl 4 Mg/2 Ml Vial) 4 mg IVPUSH Q8H PRN PRN Reason: Nausea and Vomiting Sodium Chloride (0.9 % Sodium Chloride Flush 3 Ml Syringe) 3 ml IVFLUSH QSHIFT [facility] Last Admin: 03/12/24 07:22 Dose: Not Given Timolol Maleate (Timolol Maleate 0.5 % Oph Sheila 5 Ml Drbtl) 1 drop EYE-BOTH BID [facility] Last Admin: 03/12/24 08:30 Dose: 1 drop Home Medications ?Medication ?Instructions ?Recorded ?Confirmed ?Last Taken ?Type acetaminophen 325 mg tablet 650 mg PO Q6H PRN Pain 03/10/24 03/10/24 Unknown History (Tylenol) brimonidine 0.2 %-timolol 0.5 % 1 drp ophthalmic (eye) BID 03/10/24 03/10/24 03/09/24 History eye drops (Combigan) calcium carbonate 600 mg-vitamin 1 tab PO BID 03/10/24 03/10/24 03/09/24 History D3 10 mcg (400 unit) tablet gabapentin 300 mg capsule 300 mg PO BID 03/10/24 03/10/24 03/09/24 History latanoprost 0.005 % eye drops 1 drp ophthalmic (eye) BEDTIME 03/10/24 03/10/24 03/09/24 History levothyroxine 75 mcg tablet 75 mcg PO DAILY@0600 03/10/24 03/10/24 03/09/24 History melatonin 5 mg tablet 5 mg PO BEDTIME 03/10/24 03/10/24 03/09/24 History multivitamin with folic acid 400 1 tab PO DAILY 03/10/24 03/10/24 03/09/24 History mcg tablet (Daily-Vira (with folic acid)) Physical Exam 2 Vital Signs: Vital Signs: Last Vital Signs Temp 97.3 F 03/12/24 07:45 Pulse 79 03/12/24 07:45 Resp 20 03/12/24 07:45 BP 133/60 03/12/24 07:45 Pulse Ox 95 03/12/24 07:45 O2 Del Method Room Air 03/12/24 07:45 O2 Flow Rate 2 03/11/24 06:54 BMI result Body Mass Index 30.0 Eyes: Other: Anicteric Chest: Other: Chest breath sounds bilaterally, HS 1 in 2 GI: Other: Mild upper abdominal tenderness. No evidence of any guarding, rebound, or rigidity. Results Labs 03/11/24 05:59 03/12/24 05:53 Labs: Abnormal lab results 03/12/24 Range/Units 05:53 Anion Gap 10 L (12-20) AST 74 H (5-31) U/L ALT 43 H (0-31) U/L Total Protein 5.9 L (6.5-8.0) g/dL Albumin 2.9 L (3.5-5.0) g/dL Lipase 154 H (8-78) U/L BMP 03/12/24 05:53 Sodium 137 Potassium 4.0 Chloride 105 Carbon Dioxide 26 BUN 14 Creatinine 0.61 Calcium 8.7 Liver Function 03/12/24 Range/Units 05:53 Total Bilirubin 0.6 (0.0-1.0) mg/dL Direct Bilirubin 0.3 (0.0-0.5) mg/dL AST 74 H (5-31) U/L ALT 43 H (0-31) U/L Alkaline Phosphatase 69 (39-117) U/L Albumin 2.9 L (3.5-5.0) g/dL Urine 03/10/24 Range/Units 15:48 Urine Color Dark Yellow Urine Appearance Clear Urine pH 7.0 (5.0-9.0) Ur Specific [place] 1.015 (1.005-1.025) Urine Protein 30 (1+) H (Neg-Trace) mg/dL Urine Glucose (UA) Negative (Negative) mg/dL All other labs normal. Assessment and Plan (1) Gallstone pancreatitis: Status: Acute (2) Cholelithiasis: Status: Acute (3) Elevated LFTs: Status: Acute (4) Pancreatitis: Status: Acute Plan Gallstone pancreatitis. Clinically and by labs, improving. Awaiting official read of MRCP. In the meantime, we will tentatively add the patient for laparoscopic cholecystectomy with possible cholangiogram for tomorrow 03/13. Risks, benefits, and alternatives laparoscopic possible open cholecystectomy with possible cholangiogram were reviewed with the patient and included but not limited to bleeding, infection, recurrence of symptoms, numbness, pain, scarring, bowel or bile duct injury or leak and the patient wishes to proceed. All questions answered. Arrangements were made tentatively for tomorrow. Procedures Date of Service Date of Service: 03/12/24
--- NOTE | 2024-03-12 11:36 | MHC.CM.PN ---
DISPO PENDING MRCP REPORT.
--- NOTE | 2024-03-12 12:34 | MHC.CM.PN ---
THIS BEAM BUILDER HELPER MET WITH PATIENT WHO WAS UNDER THE IMPRESSION THAT HER REHAB WOULD TAKE PLACE HERE AT [facility] WHILE SHE IS INPATIENT. PROCESS OF SECURING STR REFERRALS AND A BED OFFER EXPLAINED. PATIENT IS REFUSING ANY REHAB REFERRALS AND WANTS TO GO HOME WITH [facility]. SHE REPORTS THAT SHE LIVES ON THE FIRST FLOOR. REFERRAL PLACED. CASE MANAGEMENT FOLLOWING.
[2024-03-12 14:18] VITALS: RESP 18
[2024-03-12] MEDS: 0.9 % Sodium Chloride Flush 3 ML SYRINGE IVFLUSH ×2 (14:19→23:45)
--- NOTE | 2024-03-12 15:05 | HO.PM.IMPN ---
Subjective Subjective Date of Service: 03/12/24 Interval History: seen and examined this morning follow up for gallstone pancreatitis Abdominal pain improving, still with some epigastric pain/tenderness Review of Systems Review of Systems: Yes all other systems are reviewed and are negative Constitutional Constitutional: Denies chills and Denies fever(s) Cardiovascular Cardiovascular: Denies chest pain, Denies palpitations and Denies dyspnea Respiratory Respiratory: Denies cough and Denies dyspnea Endocrine Endocrine: Denies palpitations Physical Exam Vital Signs: Vital Signs: Last Vital Signs Temp 97.3 F 03/12/24 07:45 Pulse 79 03/12/24 07:45 Resp 18 03/12/24 14:18 BP 133/60 03/12/24 07:45 Pulse Ox 95 03/12/24 07:45 O2 Del Method Room Air 03/12/24 07:45 O2 Flow Rate 2 03/11/24 06:54 BMI result Body Mass Index 30.0 Objective Data Active Medications Acetaminophen (Acetaminophen 325 Mg Tablet) 650 mg PO Q6H PRN PRN Reason: Pain, Mild (Pain Scale 1-3), fever or headache Last Admin: 03/10/24 18:04 Dose: 650 mg Documented By: DITOLC Brimonidine Tartrate (Brimonidine Tartrate 0.2% Oph 5 Ml Bottle) 1 drop EYE-BOTH BID [facility] Last Admin: 03/12/24 08:30 Dose: 1 drop Documented By: COTEMA Calcium Carbonate (Calcium Carbonate 750 Mg Tab.Chew) 750 mg PO Q4H PRN PRN Reason: Heartburn Calcium Carbonate/Cholecalciferol (Calcium + Vitamin D 250 Mg Tablet) 500 mg PO BID [facility] Last Admin: 03/12/24 08:30 Dose: 500 mg Documented By: COTEMA Gabapentin (Gabapentin 300 Mg Capsule) 300 mg PO BID [facility] Last Admin: 03/12/24 08:30 Dose: 300 mg Documented By: COTEMA Lactated Ringer's (Lr) 1,000 mls @ 100 mls/hr IVCONT .Q10H [facility] Last Admin: 03/12/24 14:21 Dose: 100 mls/hr Documented By: COTEMA Latanoprost (Latanoprost 0.005 % Ophth Sheila 2.5 Ml Drops) 1 drop EYE-BOTH BEDTIME [facility] Last Admin: 03/11/24 21:11 Dose: 1 drop Documented By: SHARAN Levothyroxine Sodium (Levothyroxine Sodium 75 Mcg Tablet) 75 mcg PO DAILY@0600 [facility] Last Admin: 03/12/24 05:32 Dose: 75 mcg Documented By: SHARAN Magnesium Hydroxide (Milk Of Magnesia 30 Ml Oral.Susp) 30 ml PO DAILY PRN PRN Reason: Constipation Melatonin (Melatonin 3 Mg Tablet) 6 mg PO BEDTIME PRN PRN Reason: Insomnia Melatonin (Melatonin 3 Mg Tablet) 6 mg PO BEDTIME [facility] Last Admin: 03/11/24 21:10 Dose: 6 mg Documented By: SHARAN Morphine Sulfate (Morphine Sulfate 2 Mg/Ml Cartridge) 1 mg IVPUSH Q4H PRN; Protocol PRN Reason: Pain, Severe (Pain Scale 7-10) Last Admin: 03/12/24 14:18 Dose: 1 mg Documented By: SILVESTRE Multivitamins/Vitamin C (Multivitamin Tablet) 1 tab PO DAILY [facility] Last Admin: 03/12/24 08:30 Dose: 1 tab Documented By: SILVESTRE Ondansetron HCl (Ondansetron Hcl 4 Mg/2 Ml Vial) 4 mg IVPUSH Q8H PRN PRN Reason: Nausea and Vomiting Sodium Chloride (0.9 % Sodium Chloride Flush 3 Ml Syringe) 3 ml IVFLUSH QSHIFT [facility] Last Admin: 03/12/24 14:19 Dose: 3 ml Documented By: SILVESTRE Timolol Maleate (Timolol Maleate 0.5 % Oph Sheila 5 Ml Drbtl) 1 drop EYE-BOTH BID [facility] Last Admin: 03/12/24 08:30 Dose: 1 drop Documented By: SILVESTRE Labs 03/11/24 05:59 03/12/24 05:53 Labs: Laboratory Results - last 24 hr 03/12/24 05:53 Anion Gap 10 L Estim Creat Clear Calc 62.5 Estimated GFR > 60 Random Glucose 71 Calcium 8.7 Total Bilirubin 0.6 Direct Bilirubin 0.3 AST 74 H ALT 43 H Alkaline Phosphatase 69 Total Protein 5.9 L Albumin 2.9 L Lipase 154 H Microbiology Microbiology Results: Microbiology 03/10/24 15:48 Urine Culture - Final Urine clean catch - Urine hallman top Assessment and Plan (1) Gallstone pancreatitis: Status: Acute Plan 88 year old women with abdominal pain, and vomiting with abd ct showing pancreatitis Acute pancreatitis lipase initially >3000, down to 154 triglycerides 70, no etoh use Likely due to gallstone pancreatitis as abdominal US with multople mobile gallstones MRCP done, official report pending GI consult>continue fluids, bowel rest, follow LFT and lipase seen by general surgery - tentatively scheduled for laparoscopic cholecystectomy with possible cholangiogram in a.m. continue clear liquids, then NPO at midnight Hx of glaucoma continue home eye drops Hypothyroidism continue levothyroxine Chronic hip pain On gabapentin back pain PT rec STR DVT prophylaxis with SCD boots attending Dr. Romero Full code continue hospital tx of acute pancreatitis requiring specialty consultation, and IV fluids and plan for laparoscopic cholecystectomy Quality Stroke Does the patient have a stroke diagnosis?: No VTE Prior VTE?: No VTE Risk Level:: Medical - moderate - high VTE Device Contraindication: N/A - Device Ordered VTE Drug Contraindication: Treatment Not Indicated
[2024-03-12 15:36] VITALS: BP 146/67; PULSE 72; RESP 18; TEMP 36.2; O2SAT 92
[2024-03-12 19:26] VITALS: BP 150/77; PULSE 80; RESP 18; TEMP 36.4; O2SAT 96
[2024-03-12 20:21] VITALS: RESP 19
[2024-03-12] MEDS: Melatonin 3 MG TABLET 6 MG PO (20:23)
[2024-03-12] MEDS: Latanoprost 0.005 % Ophth Sol 2.5 ML DROPS 1 DROP EYE-BOTH (20:27)
[2024-03-13] VITALS (15 sets, daily range): BP systolic 138–188; BP diastolic 58–86; PULSE 73–86; RESP 12–20; TEMP 36.2–37.1; O2SAT 93–100
[2024-03-13] MEDS: Levothyroxine Sodium 75 MCG TABLET PO (05:51)
[2024-03-13] MEDS: Morphine Sulfate 2 MG/ML CARTRIDGE 1 MG IVPUSH ×2 (06:01→11:29)
[2024-03-13] MEDS: Lactated Ringers 1,000 ML 100 ML IVCONT ×2 (06:07→15:26)
[2024-03-13] MEDS: 0.9 % Sodium Chloride Flush 3 ML SYRINGE IVFLUSH ×2 (07:31→16:27)
[2024-03-13] MEDS: Brimonidine Tartrate 0.2% Oph 5 ML BOTTLE 1 DROP EYE-BOTH ×2 (07:34→21:18)
[2024-03-13] MEDS: Calcium + Vitamin D 250 MG TABLET 500 MG PO ×2 (07:36→21:15)
[2024-03-13] MEDS: Gabapentin 300 MG CAPSULE PO ×2 (07:36→21:15)
[2024-03-13] MEDS: timoloL maleate 0.5 % Oph Sol 5 ML DRBTL 1 DROP EYE-BOTH ×2 (07:36→21:14)
[2024-03-13] MEDS: Multivitamin TABLET 1 TAB PO (07:36)
--- NOTE | 2024-03-13 12:06 | MHC.SHP ---
Pre-Procedural Eval Section A - 24 Hr Update-Section A only Date of Service: 03/13/24 The patient is an INPATIENT: Yes Changes since office visit: No Cold of Flu in the past 2 weeks, No New Medical Problems, No Changes in Medication and No Patient answered all questions The patient has been examined within 24 hours of the surgical procedure. The History & Physical has been completed within 30 days and I have reviewed it.: Yes Section B - Complete if H&P > 30 days Chief Complaint: Pancreatitis, transaminitis Allergies: Allergies Allergy/AdvReac Type Severity Reaction Status Date / Time Iodinated Contrast Media Allergy Severe Difficulty Verified 03/11/24 09:32 [IV Dye, Iodine Containing] Breathing acetaminophen [From Percocet] AdvReac Mild ITCHING Verified 03/10/24 09:56 oxycodone [From Percocet] AdvReac Mild ITCHING Verified 03/10/24 09:56 Plan I have reviewed the history and physical and performed a pertinent physical examination on my patient. No changes have occurred unless specified. Time Spent With Patient Time: Total time managing care of this patient today ____ minutes.
--- NOTE | 2024-03-13 12:11 | HO.ANESPROP2 ---
[facility] Active Problems Active Problems: All Active Problems Gallstone pancreatitis (Acute) Cholelithiasis (Acute) Elevated LFTs (Acute) Pancreatitis (Acute) Past Medical History Medical History Glaucoma Hypothyroidism Surgical History History of Problems with Anesthesia: No Social History Social History Household Members: None Household Members Other:: Lives alone Housing: Apartment Do you presently have visiting nurse or other home services: Yes Alcohol intake: never Patient Tobacco Use Status: Never used Tobacco Second Hand Smoke Exposure: No service: No Meds Allergies Allergy/AdvReac Type Severity Reaction Status Date / Time Iodinated Contrast Media Allergy Severe Difficulty Verified 03/11/24 09:32 [IV Dye, Iodine Containing] Breathing acetaminophen [From Percocet] AdvReac Mild ITCHING Verified 03/10/24 09:56 oxycodone [From Percocet] AdvReac Mild ITCHING Verified 03/10/24 09:56 Active Medications: Current Medications Acetaminophen (Acetaminophen 325 Mg Tablet) 650 mg PO Q6H PRN PRN Reason: Pain, Mild (Pain Scale 1-3), fever or headache Last Admin: 03/10/24 18:04 Dose: 650 mg Brimonidine Tartrate (Brimonidine Tartrate 0.2% Oph 5 Ml Bottle) 1 drop EYE-BOTH BID [facility] Last Admin: 03/13/24 07:34 Dose: 1 drop Calcium Carbonate (Calcium Carbonate 750 Mg Tab.Chew) 750 mg PO Q4H PRN PRN Reason: Heartburn Calcium Carbonate/Cholecalciferol (Calcium + Vitamin D 250 Mg Tablet) 500 mg PO BID [facility] Last Admin: 03/13/24 07:36 Dose: 500 mg Gabapentin (Gabapentin 300 Mg Capsule) 300 mg PO BID [facility] Last Admin: 03/13/24 07:36 Dose: 300 mg Lactated Ringer's (Lr) 1,000 mls @ 100 mls/hr IVCONT .Q10H [facility] Last Admin: 03/13/24 06:07 Dose: 100 mls/hr Latanoprost (Latanoprost 0.005 % Ophth Sheila 2.5 Ml Drops) 1 drop EYE-BOTH BEDTIME [facility] Last Admin: 03/12/24 20:27 Dose: 1 drop Levothyroxine Sodium (Levothyroxine Sodium 75 Mcg Tablet) 75 mcg PO DAILY@0600 [facility] Last Admin: 03/13/24 05:51 Dose: 75 mcg Magnesium Hydroxide (Milk Of Magnesia 30 Ml Oral.Susp) 30 ml PO DAILY PRN PRN Reason: Constipation Melatonin (Melatonin 3 Mg Tablet) 6 mg PO BEDTIME PRN PRN Reason: Insomnia Melatonin (Melatonin 3 Mg Tablet) 6 mg PO BEDTIME [facility] Last Admin: 03/12/24 20:23 Dose: 6 mg Morphine Sulfate (Morphine Sulfate 2 Mg/Ml Cartridge) 1 mg IVPUSH Q4H PRN; Protocol PRN Reason: Pain, Severe (Pain Scale 7-10) Last Admin: 03/13/24 11:29 Dose: 1 mg Multivitamins/Vitamin C (Multivitamin Tablet) 1 tab PO DAILY [facility] Last Admin: 03/13/24 07:36 Dose: 1 tab Ondansetron HCl (Ondansetron Hcl 4 Mg/2 Ml Vial) 4 mg IVPUSH Q8H PRN PRN Reason: Nausea and Vomiting Sodium Chloride (0.9 % Sodium Chloride Flush 3 Ml Syringe) 3 ml IVFLUSH QSHIFT [facility] Last Admin: 03/13/24 07:31 Dose: 3 ml Timolol Maleate (Timolol Maleate 0.5 % Oph Sheila 5 Ml Drbtl) 1 drop EYE-BOTH BID [facility] Last Admin: 03/13/24 07:36 Dose: 1 drop Home Medications ?Medication ?Instructions ?Recorded ?Confirmed ?Last Taken ?Type acetaminophen 325 mg tablet 650 mg PO Q6H PRN Pain 03/10/24 03/10/24 Unknown History (Tylenol) brimonidine 0.2 %-timolol 0.5 % 1 drp ophthalmic (eye) BID 03/10/24 03/10/24 03/09/24 History eye drops (Combigan) calcium carbonate 600 mg-vitamin 1 tab PO BID 03/10/24 03/10/24 03/09/24 History D3 10 mcg (400 unit) tablet gabapentin 300 mg capsule 300 mg PO BID 03/10/24 03/10/24 03/09/24 History latanoprost 0.005 % eye drops 1 drp ophthalmic (eye) BEDTIME 03/10/24 03/10/24 03/09/24 History levothyroxine 75 mcg tablet 75 mcg PO DAILY@0600 03/10/24 03/10/24 03/09/24 History melatonin 5 mg tablet 5 mg PO BEDTIME 03/10/24 03/10/24 03/09/24 History multivitamin with folic acid 400 1 tab PO DAILY 03/10/24 03/10/24 03/09/24 History mcg tablet (Daily-Vira (with folic acid)) Exam Height,Weight and Vital Signs: Height 5 ft 2 in Weight 74.5 kg Last Vital Signs Temp 97.1 F 03/13/24 12:02 Pulse 78 03/13/24 12:02 Resp 16 03/13/24 12:02 BP 155/58 H 03/13/24 12:02 Pulse Ox 95 03/13/24 12:02 O2 Del Method Room Air 03/13/24 12:02 O2 Flow Rate 2 03/11/24 06:54 Pertinent Lab Results Pertinent Lab Results: Laboratory Tests 03/10/24 03/10/24 03/11/24 10:26 15:48 05:59 WBC 12.5 H 10.4 RBC 4.20 3.81 L Hgb 13.2 12.1 Hct 38.7 36.3 L MCV 92.1 95.3 MCH 31.4 31.8 MCHC 34.1 33.3 RDW 12.8 13.3 Plt Count 171 136 L MPV 10.5 10.3 Immature Gran % (Auto) 0.4 0.8 H Neut % (Auto) 91.0 H 74.2 H Lymph % (Auto) 2.4 L 15.7 L [place] % (Auto) 6.0 8.9 Eos % (Auto) 0.0 0.3 Baso % (Auto) 0.2 0.1 Lymph # (Auto) 0.3 L 1.6 [place] # (Auto) 0.8 0.9 Eos # (Auto) 0.0 0.0 Baso # (Auto) 0.0 0.0 Abs Immat Gran (auto) 0.05 H 0.08 H Absolute Neuts (auto) 11.3 H 7.7 Absolute Nucleated RBC 0.000 0.000 Nucleated RBC % (auto) 0.0 0.0 Smear Tech's Comments VERIFIED Sodium 142 143 Potassium 3.9 4.2 Chloride 106 108 Carbon Dioxide 25 29 Anion Gap 15 10 L BUN 16 18 H Creatinine 0.89 0.75 Estim Creat Clear Calc 42.8 50.7 Estimated GFR > 60 > 60 Random Glucose 134 H 77 Calcium 9.6 8.6 D Magnesium 2.0 Total Bilirubin 1.0 0.8 Direct Bilirubin 0.3 AST 275 H 116 H ALT 101 H 65 H Alkaline Phosphatase 104 80 Total Protein 7.6 6.3 L Albumin 3.8 3.2 L Triglycerides 70 Lipase > 3000 H 1412 H Urine Color Dark Yellow Urine Appearance Clear Urine pH 7.0 Ur Specific [place] 1.015 Urine Protein 30 (1+) H Urine Glucose (UA) Negative Urine Ketones Negative Urine Blood Trace H Urine Nitrite Negative Ur Leukocyte Esterase Small (1+) H Urine RBC 0-2 Urine WBC 0-5 Ur Squamous Epith Cells 3-5 Urine Bacteria None Seen Hyaline Casts 0-2 03/12/24 05:53 WBC RBC Hgb Hct MCV MCH MCHC RDW Plt Count MPV Immature Gran % (Auto) Neut % (Auto) Lymph % (Auto) [place] % (Auto) Eos % (Auto) Baso % (Auto) Lymph # (Auto) [place] # (Auto) Eos # (Auto) Baso # (Auto) Abs Immat Gran (auto) Absolute Neuts (auto) Absolute Nucleated RBC Nucleated RBC % (auto) Smear Tech's Comments Sodium 137 Potassium 4.0 Chloride 105 Carbon Dioxide 26 Anion Gap 10 L BUN 14 Creatinine 0.61 Estim Creat Clear Calc 62.5 Estimated GFR > 60 Random Glucose 71 Calcium 8.7 Magnesium Total Bilirubin 0.6 Direct Bilirubin 0.3 AST 74 H ALT 43 H Alkaline Phosphatase 69 Total Protein 5.9 L Albumin 2.9 L Triglycerides Lipase 154 H Urine Color Urine Appearance Urine pH Ur Specific [place] Urine Protein Urine Glucose (UA) Urine Ketones Urine Blood Urine Nitrite Ur Leukocyte Esterase Urine RBC Urine WBC Ur Squamous Epith Cells Urine Bacteria Hyaline Casts Airway Mallampati Class: II (edentulous) TM Dist: >3cm Neck ROM: Limited Denture: Upper Loose/Missing/Broken Teeth: Yes, Upper and Lower Heart: RRR Lungs: CTA Assessment and Plan Assessment Anesthesia Assessment: Anesthesia Plan Discussed Final Anesthetic Review History of Problems with Anesthesia: No NPO: Yes ASA Class: II Final Preanesthetic Review: Meds/Allgs Chart Reviewed, Consent Obtained/Reviewed and Anes Risks/Benef Reviewed Patient Risk: Low Procedure Risk: Intermediate Anesthetic Plan Anesthetic Plan: GA Disposition: Standard PACU
--- NOTE | 2024-03-13 12:19 | P.PNIM_ITS ---
Subjective Subjective Date of Service: 03/13/24 Interval History: Seen and examined this morning Continues to have abdominal pain Plan for laparoscopic cholecystectomy today Review of Systems Review of Systems: Yes all other systems are reviewed and are negative Constitutional Constitutional: Denies fever(s) Physical Exam 2 Vital Signs: Vital Signs: Last Vital Signs Temp 97.1 F 03/13/24 12:02 Pulse 78 03/13/24 12:02 Resp 16 03/13/24 12:02 BP 155/58 H 03/13/24 12:02 Pulse Ox 95 03/13/24 12:02 O2 Del Method Room Air 03/13/24 12:02 O2 Flow Rate 2 03/11/24 06:54 BMI result Body Mass Index 30.0 Const: General: cooperative, comfortable, no acute distress, alert and awake Nutritional Appearance: overweight Orientation/consciousness: patient oriented x3 Resp: Effort & Inspection: normal respiratory effort, able to speak in complete sentences, no respiratory distress and no use of accessory muscles Cardio: Rate: regular rate GI: Other: soft, epigastric tenderness Neuro: General: patient oriented x3, moves all extremities and normal sensation to monofilament Extrem: General: Yes no pedal edema Objective Data Active Medications Acetaminophen (Acetaminophen 325 Mg Tablet) 650 mg PO Q6H PRN PRN Reason: Pain, Mild (Pain Scale 1-3), fever or headache Last Admin: 03/10/24 18:04 Dose: 650 mg Documented By: ESVIN Brimonidine Tartrate (Brimonidine Tartrate 0.2% Oph 5 Ml Bottle) 1 drop EYE- BOTH BID [facility] Last Admin: 03/13/24 07:34 Dose: 1 drop Documented By: VINAY Calcium Carbonate (Calcium Carbonate 750 Mg Tab.Chew) 750 mg PO Q4H PRN PRN Reason: Heartburn Calcium Carbonate/Cholecalciferol (Calcium + Vitamin D 250 Mg Tablet) 500 mg PO BID [facility] Last Admin: 03/13/24 07:36 Dose: 500 mg Documented By: VINAY Gabapentin (Gabapentin 300 Mg Capsule) 300 mg PO BID [facility] Last Admin: 03/13/24 07:36 Dose: 300 mg Documented By: VINAY Lactated Ringer's (Lr) 1,000 mls @ 100 mls/hr IVCONT .Q10H [facility] Last Admin: 03/13/24 06:07 Dose: 100 mls/hr Documented By: MIGUELITO Latanoprost (Latanoprost 0.005 % Ophth Sheila 2.5 Ml Drops) 1 drop EYE-BOTH BEDTIME [facility] Last Admin: 03/12/24 20:27 Dose: 1 drop Documented By: SURINDER Levothyroxine Sodium (Levothyroxine Sodium 75 Mcg Tablet) 75 mcg PO DAILY@0600 [facility] Last Admin: 03/13/24 05:51 Dose: 75 mcg Documented By: MIGUELITO Magnesium Hydroxide (Milk Of Magnesia 30 Ml Oral.Susp) 30 ml PO DAILY PRN PRN Reason: Constipation Melatonin (Melatonin 3 Mg Tablet) 6 mg PO BEDTIME PRN PRN Reason: Insomnia Melatonin (Melatonin 3 Mg Tablet) 6 mg PO BEDTIME [facility] Last Admin: 03/12/24 20:23 Dose: 6 mg Documented By: SURINDER Morphine Sulfate (Morphine Sulfate 2 Mg/Ml Cartridge) 1 mg IVPUSH Q4H PRN; Protocol PRN Reason: Pain, Severe (Pain Scale 7-10) Last Admin: 03/13/24 11:29 Dose: 1 mg Documented By: VINAY Multivitamins/Vitamin C (Multivitamin Tablet) 1 tab PO DAILY [facility] Last Admin: 03/13/24 07:36 Dose: 1 tab Documented By: VINAY Ondansetron HCl (Ondansetron Hcl 4 Mg/2 Ml Vial) 4 mg IVPUSH Q8H PRN PRN Reason: Nausea and Vomiting Sodium Chloride (0.9 % Sodium Chloride Flush 3 Ml Syringe) 3 ml IVFLUSH QSHIFT [facility] Last Admin: 03/13/24 07:31 Dose: 3 ml Documented By: VINAY Timolol Maleate (Timolol Maleate 0.5 % Oph Sheila 5 Ml Drbtl) 1 drop EYE-BOTH BID [facility] Last Admin: 03/13/24 07:36 Dose: 1 drop Documented By: VINAY Labs 03/11/24 05:59 03/12/24 05:53 Microbiology Microbiology Results: Microbiology 03/10/24 15:48 Urine Culture - Final Urine clean catch - Urine hallman top Assessment and Plan (1) Gallstone pancreatitis: Status: Acute Plan 88 year old women with abdominal pain, and vomiting with abd ct showing pancreatitis Acute gallstone pancreatitis lipase initially >3000, down to 154 triglycerides 70, no etoh use Likely due to gallstone pancreatitis as abdominal US with multiple mobile gallstones MRCP done, official report pending GI consult>continue fluids, bowel rest, follow LFT and lipase seen by general surgery - plan for laparoscopic cholecystectomy with possible cholangiogram today Hx of glaucoma continue home eye drops Hypothyroidism continue levothyroxine Chronic hip pain On gabapentin back pain PT rec STR DVT prophylaxis with SCD boots attending Dr. Romero Full code continue hospital tx of acute pancreatitis requiring specialty consultation, and IV fluids and plan for laparoscopic cholecystectomy Quality Stroke Does the patient have a stroke diagnosis?: No VTE Prior VTE?: No VTE Risk Level:: Medical - moderate - high VTE Device Contraindication: N/A - Device Ordered VTE Drug Contraindication: Treatment Not Indicated
--- NOTE | 2024-03-13 14:09 | W.PM.OPN ---
Operative Note Operative Note Date of Service: 03/13/24 Narrative: Preoperative diagnosis: [] Gallstone pancreatitis Postop diagnosis: [] The same Procedure [] laparoscopic cholecystectomy with cholangiogram Surgeon: [] Rick Baseball Pitcher: [] Amanuel Type of Anesthesia: [] General Indication for surgery: [] Gallstone pancreatitis. Intraoperative findings demonstrated gallbladder with multiple small gallstones. Omental adhesions to the gallbladder. Cholangiogram demonstrated free flow of contrast into the extrahepatic biliary system and duodenal with no gross evidence of obstruction or calculi Findings: [] Patient brought to the operating room, placed on operative table in supine position, after an adequate level of general anesthesia was induced, the patient's abdomen was prepped and draped in usual sterile fashion. Using a supraumbilical curvilinear incision, De La Rosa technique was used to insufflate abdominal cavity to 15 mm of CO2. Upper midline and right subcostal ports were placed under direct laparoscopic view, the patient placed in reverse Trendelenburg position, and tilted to the left. Findings were as noted above. Gallbladder was grasped using laparoscopic graspers, and retracted superiorly and laterally. Omental adhesions were swept off the gallbladder with the hilum was approached. Cystic artery and cystic duct were each identified, circumferentially skeletonized, traced directly into the gallbladder, and critical view obtained. Small incision was made in the cystic duct at the cystic duct/Farrah's pouch junction and a cholangiocatheter advanced and cholangiogram performed with findings as noted above. Cystic duct was then clipped proximally x2, distally x1, and transected cystic artery was similarly clipped proximally x2, distally x1, and transected. Gallbladder which was moderately intrahepatic was then cauterized in the gallbladder fossa using Bovie. Specimen was placed in an Endo-Catch bag, a retrieved through the umbilical port. Abdominal cavity was very copiously irrigated and secured hemostasis. All ports removed under direct laparoscopic view. Wounds were closed in the following manner; umbilical wound is fascia reapproximated using interrupted 0 Vicryl sutures. Skin wounds were closed using subcuticular 4-0 Vicryl sutures followed by Steri-Strips and sterile dressings. Wounds were infiltrated 0.5% Marcaine at completion. Sponge, needle, and instrument counts were reported correct. Patient tolerated the procedure well and emerged from anesthesia stable condition. EBL minimal
[2024-03-13] MEDS: fentaNYL citrate/PF 100 MCG/2 ML VIAL 25 MCG IVPUSH (14:33)
[2024-03-13] MEDS: oxyCODONE HCl Immed Release 5 MG TABLET PO (16:26)
[2024-03-13] MEDS: Throat Lozenge, Medicated LOZENGE 1 LOZENGE MUCOUS MEM (16:27)
[2024-03-13] MEDS: Morphine Sulfate 4 MG/ML CARTRIDGE 3 MG IVPUSH (18:39)
[2024-03-13] MEDS: Melatonin 3 MG TABLET 6 MG PO (21:16)
[2024-03-13] MEDS: Latanoprost 0.005 % Ophth Sol 2.5 ML DROPS 1 DROP EYE-BOTH (21:22)
[2024-03-14 03:23] VITALS: BP 158/66; PULSE 87; RESP 18; TEMP 36.4; O2SAT 97
[2024-03-14] MEDS: Morphine Sulfate 4 MG/ML CARTRIDGE 3 MG IVPUSH ×2 (03:59→09:34)
[2024-03-14] MEDS: Levothyroxine Sodium 75 MCG TABLET PO (06:09)
[2024-03-14 07:17] LABS: Hematocrit 32.3 % (37.0-47.0); Hemoglobin 11.1 g/dl (12.0-16.0); Mean Corpuscular HGB Conc 34.4 g/dl (31.0-35.0); Mean Corpuscular Hemoglobin 31.7 pg (27.0-33.0); Mean Corpuscular Volume 92.3 fL (80.0-98.0); Red Cell Distribution Width 12.7 % (11.0-16.0); White Blood Count 11.7 X10*3/uL (4.8-10.8)
[2024-03-14 07:36] LABS: Anion Gap 16 (12-20); Blood Urea Nitrogen 11 mg/dL (9-16); Calcium 8.4 mg/dL (8.4-10.2); Carbon Dioxide 22 mmol/L (22-29); Chloride 101 mmol/L (96-108); Creatinine Clr Calc Pharmacy 64.6; Estimated Glomerular Filt Rate > 60; Potassium 4.1 mmol/L (3.3-5.1); Sodium 135 mmol/L (135-145)
[2024-03-14 07:46] LABS: Glucose Random 47 mg/dL (60-115)
[2024-03-14 07:55] VITALS: BP 148/80; PULSE 87; RESP 16; TEMP 36.3; O2SAT 94
[2024-03-14 08:46] LABS: Glucose, Whole Blood 52 mg/dL (60-115)
--- NOTE | 2024-03-14 08:56 | PM.PNGS ---
Subjective Subjective Date of Service: 03/14/24 Interval history: Patient reports pain in the upper abdomen near her incisions. Was able to tolerate some food without nausea or vomiting but not very hungry at this time. Was out of bed yesterday but has not been out of bed yet today. Physical Exam Vital Signs: Vital Signs: Last Vital Signs Temp 97.4 F 03/14/24 07:55 Pulse 87 03/14/24 07:55 Resp 16 03/14/24 07:55 BP 148/80 H 03/14/24 07:55 Pulse Ox 94 03/14/24 07:55 O2 Del Method Nasal Cannula 03/14/24 07:55 O2 Flow Rate 1.0 03/14/24 07:55 BMI result Body Mass Index 30.0 Const: General: no acute distress Nutritional Appearance: well nourished Resp: Effort & Inspection: normal respiratory effort GI: Other: Soft and nondistended, trocar incisions are clean, dry and intact. Extrem: General: Yes no clubbing, cyanosis or edema Objective Data Active Medications Acetaminophen (Acetaminophen 325 Mg Tablet) 650 mg PO Q6H PRN PRN Reason: Pain, Mild (Pain Scale 1-3), fever or headache Last Admin: 03/10/24 18:04 Dose: 650 mg Documented By: ESVIN Benzocaine (Throat Lozenge, Medicated Lozenge) 1 lozenge MUCOUS MEM Q2H PRN PRN Reason: Sore Throat Last Admin: 03/13/24 16:27 Dose: 1 lozenge Documented By: VINAY Brimonidine Tartrate (Brimonidine Tartrate 0.2% Oph 5 Ml Bottle) 1 drop EYE-BOTH BID [facility] Last Admin: 03/13/24 21:18 Dose: 1 drop Documented By: MARIANA Calcium Carbonate (Calcium Carbonate 750 Mg Tab.Chew) 750 mg PO Q4H PRN PRN Reason: Heartburn Calcium Carbonate/Cholecalciferol (Calcium + Vitamin D 250 Mg Tablet) 500 mg PO BID [facility] Last Admin: 03/13/24 21:15 Dose: 500 mg Documented By: MARIANA Gabapentin (Gabapentin 300 Mg Capsule) 300 mg PO BID [facility] Last Admin: 03/13/24 21:15 Dose: 300 mg Documented By: MARIANA Latanoprost (Latanoprost 0.005 % Ophth Sheila 2.5 Ml Drops) 1 drop EYE-BOTH BEDTIME [facility] Last Admin: 03/13/24 21:22 Dose: 1 drop Documented By: MARIANA Levothyroxine Sodium (Levothyroxine Sodium 75 Mcg Tablet) 75 mcg PO DAILY@0600 [facility] Last Admin: 03/14/24 06:09 Dose: 75 mcg Documented By: MARIANA Magnesium Hydroxide (Milk Of Magnesia 30 Ml Oral.Susp) 30 ml PO DAILY PRN PRN Reason: Constipation Melatonin (Melatonin 3 Mg Tablet) 6 mg PO BEDTIME PRN PRN Reason: Insomnia Melatonin (Melatonin 3 Mg Tablet) 6 mg PO BEDTIME [facility] Last Admin: 03/13/24 21:16 Dose: 6 mg Documented By: MARIANA Morphine Sulfate (Morphine Sulfate 4 Mg/Ml Cartridge) 3 mg IVPUSH Q4H PRN; Protocol PRN Reason: Pain, Severe (Pain Scale 7-10) Last Admin: 03/14/24 03:59 Dose: 3 mg Documented By: MARIANA Multivitamins/Vitamin C (Multivitamin Tablet) 1 tab PO DAILY [facility] Last Admin: 03/13/24 07:36 Dose: 1 tab Documented By: VINAY Ondansetron HCl (Ondansetron Hcl 4 Mg/2 Ml Vial) 4 mg IVPUSH Q8H PRN PRN Reason: Nausea and Vomiting Oxycodone HCl (Oxycodone Hcl Immed Release 5 Mg Tablet) 5 mg PO Q4H PRN PRN Reason: Pain, Moderate(Pain Scale 4-6) Last Admin: 03/13/24 16:26 Dose: 5 mg Documented By: VINAY Sodium Chloride (0.9 % Sodium Chloride Flush 3 Ml Syringe) 3 ml IVFLUSH QSHIFT [facility] Last Admin: 03/14/24 00:21 Dose: Not Given Documented By: MARIANA Non-Admin Reason: Previously Administered Timolol Maleate (Timolol Maleate 0.5 % Oph Sheila 5 Ml Drbtl) 1 drop EYE-BOTH BID [facility] Last Admin: 03/13/24 21:14 Dose: 1 drop Documented By: MARIANA Labs 03/14/24 05:38 03/14/24 05:38 Labs: Laboratory Results - last 24 hr 03/14/24 03/14/24 05:38 08:41 MCV 92.3 MCH 31.7 MCHC 34.4 RDW 12.7 Plt Count TNP MPV TNP Absolute Nucleated RBC 0.000 Nucleated RBC % (auto) 0.0 Anion Gap 16 Estim Creat Clear Calc 64.6 Estimated GFR > 60 POC Glucose 52 L* Random Glucose 47 L* Calcium 8.4 Procedures Date of Service Date of Service: 03/14/24 Progress Note: A&P Assessment and plan (1) Gallstone pancreatitis: Status: Acute (2) Cholelithiasis: Status: Acute Plan Postop day 1 following laparoscopic cholecystectomy with cholangiogram. Patient tolerated the procedure well but does report some incisional discomfort. Wounds are clean and intact without redness or discharge. Patient not eating much yet therefore not ready for discharge from surgical standpoint. Time Spent With Patient Time: Total time managing care of this patient today ____ minutes. Quality Stroke Does the patient have a stroke diagnosis?: No VTE Prior VTE?: No VTE Risk Level:: Medical - moderate - high VTE Device Contraindication: N/A - Device Ordered VTE Drug Contraindication: Treatment Not Indicated
[2024-03-14] MEDS: timoloL maleate 0.5 % Oph Sol 5 ML DRBTL 1 DROP EYE-BOTH ×2 (09:20→20:58)
[2024-03-14] MEDS: Brimonidine Tartrate 0.2% Oph 5 ML BOTTLE 1 DROP EYE-BOTH ×2 (09:20→20:52)
[2024-03-14] MEDS: Gabapentin 300 MG CAPSULE PO ×2 (09:21→20:56)
[2024-03-14] MEDS: Calcium + Vitamin D 250 MG TABLET 500 MG PO ×2 (09:21→20:56)
[2024-03-14] MEDS: 0.9 % Sodium Chloride Flush 3 ML SYRINGE IVFLUSH ×2 (09:21→20:50)
[2024-03-14] MEDS: Multivitamin TABLET 1 TAB PO (09:21)
--- NOTE | 2024-03-14 10:10 | P.PNIM_ITS ---
Subjective Subjective Date of Service: 03/14/24 Interval History: Seen and examined this morning Continues to have abdominal pain s/p lap emiliano Review of Systems Review of Systems: Yes all other systems are reviewed and are negative Constitutional Constitutional: Denies fever(s) Physical Exam 2 Vital Signs: Vital Signs: Last Vital Signs Temp 97.4 F 03/14/24 07:55 Pulse 87 03/14/24 07:55 Resp 16 03/14/24 07:55 BP 148/80 H 03/14/24 07:55 Pulse Ox 94 03/14/24 07:55 O2 Del Method Nasal Cannula 03/14/24 07:55 O2 Flow Rate 1.0 03/14/24 07:55 BMI result Body Mass Index 30.0 Objective Data Active Medications Acetaminophen (Acetaminophen 325 Mg Tablet) 650 mg PO Q6H PRN PRN Reason: Pain, Mild (Pain Scale 1-3), fever or headache Last Admin: 03/10/24 18:04 Dose: 650 mg Documented By: ESVIN Benzocaine (Throat Lozenge, Medicated Lozenge) 1 lozenge MUCOUS MEM Q2H PRN PRN Reason: Sore Throat Last Admin: 03/13/24 16:27 Dose: 1 lozenge Documented By: VINAY Brimonidine Tartrate (Brimonidine Tartrate 0.2% Oph 5 Ml Bottle) 1 drop EYE- BOTH BID [facility] Last Admin: 03/14/24 09:20 Dose: 1 drop Documented By: SUSU Calcium Carbonate (Calcium Carbonate 750 Mg Tab.Chew) 750 mg PO Q4H PRN PRN Reason: Heartburn Calcium Carbonate/Cholecalciferol (Calcium + Vitamin D 250 Mg Tablet) 500 mg PO BID [facility] Last Admin: 03/14/24 09:21 Dose: 500 mg Documented By: SUSU Gabapentin (Gabapentin 300 Mg Capsule) 300 mg PO BID [facility] Last Admin: 03/14/24 09:21 Dose: 300 mg Documented By: SUSU Latanoprost (Latanoprost 0.005 % Ophth Sheila 2.5 Ml Drops) 1 drop EYE-BOTH BEDTIME [facility] Last Admin: 03/13/24 21:22 Dose: 1 drop Documented By: MARIANA Levothyroxine Sodium (Levothyroxine Sodium 75 Mcg Tablet) 75 mcg PO DAILY@0600 [facility] Last Admin: 03/14/24 06:09 Dose: 75 mcg Documented By: MARIANA Magnesium Hydroxide (Milk Of Magnesia 30 Ml Oral.Susp) 30 ml PO DAILY PRN PRN Reason: Constipation Melatonin (Melatonin 3 Mg Tablet) 6 mg PO BEDTIME PRN PRN Reason: Insomnia Melatonin (Melatonin 3 Mg Tablet) 6 mg PO BEDTIME [facility] Last Admin: 03/13/24 21:16 Dose: 6 mg Documented By: MARIANA Morphine Sulfate (Morphine Sulfate 4 Mg/Ml Cartridge) 3 mg IVPUSH Q4H PRN; Protocol PRN Reason: Pain, Severe (Pain Scale 7-10) Last Admin: 03/14/24 09:34 Dose: 3 mg Documented By: SUSU Multivitamins/Vitamin C (Multivitamin Tablet) 1 tab PO DAILY [facility] Last Admin: 03/14/24 09:21 Dose: 1 tab Documented By: SUSU Ondansetron HCl (Ondansetron Hcl 4 Mg/2 Ml Vial) 4 mg IVPUSH Q8H PRN PRN Reason: Nausea and Vomiting Oxycodone HCl (Oxycodone Hcl Immed Release 5 Mg Tablet) 5 mg PO Q4H PRN PRN Reason: Pain, Moderate(Pain Scale 4-6) Last Admin: 03/13/24 16:26 Dose: 5 mg Documented By: VINAY Sodium Chloride (0.9 % Sodium Chloride Flush 3 Ml Syringe) 3 ml IVFLUSH QSHIFT [facility] Last Admin: 03/14/24 09:21 Dose: 3 ml Documented By: SUSU Timolol Maleate (Timolol Maleate 0.5 % Oph Sheila 5 Ml Drbtl) 1 drop EYE-BOTH BID [facility] Last Admin: 03/14/24 09:20 Dose: 1 drop Documented By: SUSU Labs 03/14/24 05:38 03/14/24 05:38 Labs: Laboratory Results - last 24 hr 03/14/24 03/14/24 05:38 08:41 MCV 92.3 MCH 31.7 MCHC 34.4 RDW 12.7 Plt Count TNP MPV TNP Absolute Nucleated RBC 0.000 Nucleated RBC % (auto) 0.0 Anion Gap 16 Estim Creat Clear Calc 64.6 Estimated GFR > 60 POC Glucose 52 L* Random Glucose 47 L* Calcium 8.4 Assessment and Plan (1) Gallstone pancreatitis: Status: Acute Plan 88 year old women with abdominal pain, and vomiting with abd ct showing pancreatitis Hypoglycemia likely from poor po intake encourage po intake add d5ns Acute gallstone pancreatitis lipase initially >3000, down to 154 triglycerides 70, no etoh use Likely due to gallstone pancreatitis as abdominal US with multiple mobile gallstones MRCP done GI following seen by general surgery - s/p lap emiliano 03/13/24 Hx of glaucoma continue home eye drops Hypothyroidism continue levothyroxine Chronic hip pain On gabapentin back pain PT rec STR DVT prophylaxis with SCD boots attending Dr. Forde Full code continue hospital tx of acute pancreatitis Quality Stroke Does the patient have a stroke diagnosis?: No VTE Prior VTE?: No VTE Risk Level:: Medical - moderate - high VTE Device Contraindication: N/A - Device Ordered VTE Drug Contraindication: Treatment Not Indicated
[2024-03-14] MEDS: Dextrose 5 % and 0.9 % NaCl 1,000 ML 80 ML IVCONT (10:48)
[2024-03-14 11:12] LABS: Glucose, Whole Blood 149 mg/dL (60-115)
[2024-03-14 12:00] VITALS: BP 138/66; PULSE 96; RESP 16; TEMP 36.2; O2SAT 96
--- NOTE | 2024-03-14 16:08 | HO.POSTANES ---
Post Anesthesia Evaluation Post Anesthesia Evaluation Date of Service: 03/14/24 Vital Signs: Vital Signs Temp Pulse Resp BP Pulse Ox O2 Del Method O2 Flow Rate 03/14/24 12:00 97.2 F 96 16 138/66 96 Nasal Cannula 1.0 03/14/24 07:55 97.4 F 87 16 148/80 H 94 Nasal Cannula 1.0 Anesthesia: General Endotracheal-GETA Mental Status: Awake Pain Control: Satisfactory Nausea/Vomiting: None Hydration: Adequate Anesthesia-Related Issues: No Anes. Related Issues
[2024-03-14 17:14] VITALS: BP 139/67; PULSE 88; RESP 16; TEMP 36.2; O2SAT 95
[2024-03-14 20:00] VITALS: BP 134/60; PULSE 88; RESP 20; TEMP 36.3; O2SAT 98
[2024-03-14] MEDS: Melatonin 3 MG TABLET 6 MG PO (20:56)
[2024-03-14] MEDS: Latanoprost 0.005 % Ophth Sol 2.5 ML DROPS 1 DROP EYE-BOTH (21:01)
[2024-03-14 23:19] VITALS: BP 135/61; PULSE 74; RESP 20; TEMP 36.1; O2SAT 98
[2024-03-15] VITALS (7 sets, daily range): BP systolic 119–153; BP diastolic 58–74; PULSE 72–86; RESP 13–20; TEMP 36.1–36.5; O2SAT 95–97
[2024-03-15] MEDS: Dextrose 5 % and 0.9 % NaCl 1,000 ML 80 ML IVCONT ×3 (00:25→22:02)
[2024-03-15 00:31] LABS: Glucose, Whole Blood 186 mg/dL (60-115)
[2024-03-15] MEDS: Levothyroxine Sodium 75 MCG TABLET PO (06:51)
[2024-03-15] MEDS: Morphine Sulfate 4 MG/ML CARTRIDGE 3 MG IVPUSH ×3 (07:03→20:23)
[2024-03-15] MEDS: Brimonidine Tartrate 0.2% Oph 5 ML BOTTLE 1 DROP EYE-BOTH ×2 (08:33→20:25)
[2024-03-15] MEDS: Multivitamin TABLET 1 TAB PO (08:33)
[2024-03-15] MEDS: timoloL maleate 0.5 % Oph Sol 5 ML DRBTL 1 DROP EYE-BOTH ×2 (08:33→20:25)
[2024-03-15] MEDS: Gabapentin 300 MG CAPSULE PO (08:33)
[2024-03-15] MEDS: Calcium + Vitamin D 250 MG TABLET 500 MG PO ×2 (08:33→20:25)
--- NOTE | 2024-03-15 09:51 | P.PNIM_ITS ---
Subjective Subjective Date of Service: 03/15/24 Interval History: Seen and examined this morning Continues to have abdominal pain s/p lap emiliano Review of Systems Review of Systems: Yes all other systems are reviewed and are negative Constitutional Constitutional: Denies fever(s) Physical Exam 2 Vital Signs: Vital Signs: Last Vital Signs Temp 97.5 F 03/15/24 07:29 Pulse 76 03/15/24 07:29 Resp 18 03/15/24 07:29 BP 129/58 L 03/15/24 07:29 Pulse Ox 97 03/15/24 07:29 O2 Del Method Nasal Cannula 03/15/24 07:29 O2 Flow Rate 1 03/15/24 07:29 BMI result Body Mass Index 30.0 Appearing in no acute distress lung sounds are clear to auscultation heart regular rate rhythm, clear S1, S2 positive bowel sounds, abdomen is soft, nontender neuro patient is alert x3, no focal deficits Objective Data Active Medications Acetaminophen (Acetaminophen 325 Mg Tablet) 650 mg PO Q6H PRN PRN Reason: Pain, Mild (Pain Scale 1-3), fever or headache Last Admin: 03/10/24 18:04 Dose: 650 mg Documented By: ESVIN Benzocaine (Throat Lozenge, Medicated Lozenge) 1 lozenge MUCOUS MEM Q2H PRN PRN Reason: Sore Throat Last Admin: 03/13/24 16:27 Dose: 1 lozenge Documented By: VINAY Brimonidine Tartrate (Brimonidine Tartrate 0.2% Oph 5 Ml Bottle) 1 drop EYE- BOTH BID [facility] Last Admin: 03/15/24 08:33 Dose: 1 drop Documented By: SUSU Calcium Carbonate (Calcium Carbonate 750 Mg Tab.Chew) 750 mg PO Q4H PRN PRN Reason: Heartburn Calcium Carbonate/Cholecalciferol (Calcium + Vitamin D 250 Mg Tablet) 500 mg PO BID [facility] Last Admin: 03/15/24 08:33 Dose: 500 mg Documented By: SUSU Gabapentin (Gabapentin 300 Mg Capsule) 300 mg PO BID [facility] Last Admin: 03/15/24 08:33 Dose: 300 mg Documented By: SUSU Dextrose/Sodium Chloride (D5ns) 1,000 mls @ 80 mls/hr IVCONT .[id number] [facility] Last Infusion: 03/15/24 07:06 Dose: 80 mls/hr Documented By: MARIANA Latanoprost (Latanoprost 0.005 % Ophth Sheila 2.5 Ml Drops) 1 drop EYE-BOTH BEDTIME [facility] Last Admin: 03/14/24 21:01 Dose: 1 drop Documented By: MARIANA Levothyroxine Sodium (Levothyroxine Sodium 75 Mcg Tablet) 75 mcg PO DAILY@0600 [facility] Last Admin: 03/15/24 06:51 Dose: 75 mcg Documented By: MARIANA Magnesium Hydroxide (Milk Of Magnesia 30 Ml Oral.Susp) 30 ml PO DAILY PRN PRN Reason: Constipation Melatonin (Melatonin 3 Mg Tablet) 6 mg PO BEDTIME PRN PRN Reason: Insomnia Melatonin (Melatonin 3 Mg Tablet) 6 mg PO BEDTIME [facility] Last Admin: 03/14/24 20:56 Dose: 6 mg Documented By: MARIANA Morphine Sulfate (Morphine Sulfate 4 Mg/Ml Cartridge) 3 mg IVPUSH Q4H PRN; Protocol PRN Reason: Pain, Severe (Pain Scale 7-10) Last Admin: 03/15/24 07:03 Dose: 3 mg Documented By: MARIANA Multivitamins/Vitamin C (Multivitamin Tablet) 1 tab PO DAILY [facility] Last Admin: 03/15/24 08:33 Dose: 1 tab Documented By: SUSU Ondansetron HCl (Ondansetron Hcl 4 Mg/2 Ml Vial) 4 mg IVPUSH Q8H PRN PRN Reason: Nausea and Vomiting Oxycodone HCl (Oxycodone Hcl Immed Release 5 Mg Tablet) 5 mg PO Q4H PRN PRN Reason: Pain, Moderate(Pain Scale 4-6) Last Admin: 03/13/24 16:26 Dose: 5 mg Documented By: VINAY Sodium Chloride (0.9 % Sodium Chloride Flush 3 Ml Syringe) 3 ml IVFLUSH QSHIFT [facility] Last Admin: 03/15/24 08:33 Dose: Not Given Documented By: SUSU Non-Admin Reason: IV Running Timolol Maleate (Timolol Maleate 0.5 % Oph Sheila 5 Ml Drbtl) 1 drop EYE-BOTH BID [facility] Last Admin: 03/15/24 08:33 Dose: 1 drop Documented By: SUSU Labs 03/14/24 05:38 03/14/24 05:38 Labs: Laboratory Results - last 24 hr 03/14/24 03/15/24 11:08 00:27 POC Glucose 149 H 186 H Assessment and Plan (1) Gallstone pancreatitis: Status: Acute Plan 88 year old women with abdominal pain, and vomiting with abd ct showing pancreatitis Hypoglycemia. Resolved likely from poor po intake encourage po intake add d5ns Acute gallstone pancreatitis lipase initially >3000, down to 154 triglycerides 70, no etoh use Likely due to gallstone pancreatitis as abdominal US with multiple mobile gallstones MRCP done GI following seen by general surgery - s/p lap emiliano 03/13/24 Hx of glaucoma continue home eye drops Hypothyroidism continue levothyroxine Chronic hip pain On gabapentin back pain PT rec STR DVT prophylaxis with SCD boots attending Dr. Forde Full code continue hospital tx of acute pancreatitis Quality Stroke Does the patient have a stroke diagnosis?: No VTE Prior VTE?: No VTE Risk Level:: Medical - moderate - high VTE Device Contraindication: N/A - Device Ordered VTE Drug Contraindication: Treatment Not Indicated
--- NOTE | 2024-03-15 09:57 | PM.PNGS ---
Subjective Subjective Date of Service: 03/15/24 Interval history: Complaining of incisional pain mainly in the right upper quadrant. Not much of an appetite still. Denies nausea or vomiting. Physical Exam Vital Signs: Vital Signs: Last Vital Signs Temp 97.5 F 03/15/24 07:29 Pulse 76 03/15/24 07:29 Resp 18 03/15/24 07:29 BP 129/58 L 03/15/24 07:29 Pulse Ox 97 03/15/24 07:29 O2 Del Method Nasal Cannula 03/15/24 07:29 O2 Flow Rate 1 03/15/24 07:29 BMI result Body Mass Index 30.0 Const: General: tired appearing Nutritional Appearance: well nourished Orientation/consciousness: patient oriented x3 Resp: Effort & Inspection: normal respiratory effort GI: Inspection: No distended Palpation (GI): Soft to palpation, Tenderness to palpation present (GI) in the RUQ, no guarding and not rigid Percussion: Yes normal to percussion Auscultation: normal bowel sounds Skin: Other: Normal color Neuro: General: patient oriented x3 Objective Data Active Medications Acetaminophen (Acetaminophen 325 Mg Tablet) 650 mg PO Q6H PRN PRN Reason: Pain, Mild (Pain Scale 1-3), fever or headache Last Admin: 03/10/24 18:04 Dose: 650 mg Documented By: ESVIN Benzocaine (Throat Lozenge, Medicated Lozenge) 1 lozenge MUCOUS MEM Q2H PRN PRN Reason: Sore Throat Last Admin: 03/13/24 16:27 Dose: 1 lozenge Documented By: VINAY Brimonidine Tartrate (Brimonidine Tartrate 0.2% Oph 5 Ml Bottle) 1 drop EYE-BOTH BID [facility] Last Admin: 03/15/24 08:33 Dose: 1 drop Documented By: SUSU Calcium Carbonate (Calcium Carbonate 750 Mg Tab.Chew) 750 mg PO Q4H PRN PRN Reason: Heartburn Calcium Carbonate/Cholecalciferol (Calcium + Vitamin D 250 Mg Tablet) 500 mg PO BID [facility] Last Admin: 03/15/24 08:33 Dose: 500 mg Documented By: SUSU Gabapentin (Gabapentin 300 Mg Capsule) 300 mg PO BID [facility] Last Admin: 03/15/24 08:33 Dose: 300 mg Documented By: SUSU Dextrose/Sodium Chloride (D5ns) 1,000 mls @ 80 mls/hr IVCONT .[id number] [facility] Last Infusion: 03/15/24 07:06 Dose: 80 mls/hr Documented By: MARIANA Latanoprost (Latanoprost 0.005 % Ophth Sheila 2.5 Ml Drops) 1 drop EYE-BOTH BEDTIME [facility] Last Admin: 03/14/24 21:01 Dose: 1 drop Documented By: MARIANA Levothyroxine Sodium (Levothyroxine Sodium 75 Mcg Tablet) 75 mcg PO DAILY@0600 [facility] Last Admin: 03/15/24 06:51 Dose: 75 mcg Documented By: MARIANA Magnesium Hydroxide (Milk Of Magnesia 30 Ml Oral.Susp) 30 ml PO DAILY PRN PRN Reason: Constipation Melatonin (Melatonin 3 Mg Tablet) 6 mg PO BEDTIME PRN PRN Reason: Insomnia Melatonin (Melatonin 3 Mg Tablet) 6 mg PO BEDTIME [facility] Last Admin: 03/14/24 20:56 Dose: 6 mg Documented By: MARIANA Morphine Sulfate (Morphine Sulfate 4 Mg/Ml Cartridge) 3 mg IVPUSH Q4H PRN; Protocol PRN Reason: Pain, Severe (Pain Scale 7-10) Last Admin: 03/15/24 07:03 Dose: 3 mg Documented By: MARIANA Multivitamins/Vitamin C (Multivitamin Tablet) 1 tab PO DAILY [facility] Last Admin: 03/15/24 08:33 Dose: 1 tab Documented By: SUSU Ondansetron HCl (Ondansetron Hcl 4 Mg/2 Ml Vial) 4 mg IVPUSH Q8H PRN PRN Reason: Nausea and Vomiting Oxycodone HCl (Oxycodone Hcl Immed Release 5 Mg Tablet) 5 mg PO Q4H PRN PRN Reason: Pain, Moderate(Pain Scale 4-6) Last Admin: 03/13/24 16:26 Dose: 5 mg Documented By: VINAY Sodium Chloride (0.9 % Sodium Chloride Flush 3 Ml Syringe) 3 ml IVFLUSH QSHIFT [facility] Last Admin: 03/15/24 08:33 Dose: Not Given Documented By: SUSU Non-Admin Reason: IV Running Timolol Maleate (Timolol Maleate 0.5 % Oph Sheila 5 Ml Drbtl) 1 drop EYE-BOTH BID [facility] Last Admin: 03/15/24 08:33 Dose: 1 drop Documented By: SUSU Labs 03/14/24 05:38 03/14/24 05:38 Labs: Laboratory Results - last 24 hr 03/14/24 03/15/24 11:08 00:27 POC Glucose 149 H 186 H Procedures Date of Service Date of Service: 03/15/24 Progress Note: A&P Assessment and plan (1) Gallstone pancreatitis: Status: Acute (2) Cholelithiasis: Status: Acute Plan POD #2 following laparoscopic cholecystectomy with cholangiogram. Patient tolerated the procedure well but does report some continued incisional discomfort. Wounds are clean and intact without redness or discharge. May need more time before discharge. Will recheck labs in AM. Time Spent With Patient Time: Total time managing care of this patient today ____ minutes. Quality Stroke Does the patient have a stroke diagnosis?: No VTE Prior VTE?: No VTE Risk Level:: Medical - moderate - high VTE Device Contraindication: N/A - Device Ordered VTE Drug Contraindication: Treatment Not Indicated
[2024-03-15] MEDS: Melatonin 3 MG TABLET 6 MG PO (20:24)
[2024-03-15] MEDS: Latanoprost 0.005 % Ophth Sol 2.5 ML DROPS 1 DROP EYE-BOTH (20:25)
[2024-03-15 20:39] LABS: Glucose, Whole Blood 152 mg/dL (60-115)
[2024-03-16] MEDS: Levothyroxine Sodium 75 MCG TABLET PO (05:15)
[2024-03-16] MEDS: Morphine Sulfate 4 MG/ML CARTRIDGE 3 MG IVPUSH ×2 (05:19→19:39)
[2024-03-16 06:46] LABS: MANUAL DIFF FLAG NO
[2024-03-16 06:51] LABS: Basophils Percent Auto 0.3 % (0-2); Eosinophils Absolute Auto 0.3 X10*3/uL (0.0-0.4); Eosinophils Percent Auto 2.2 % (0-4); Hematocrit 34.3 % (37.0-47.0); Hemoglobin 11.3 g/dl (12.0-16.0); Imm Gran Abs Auto 0.09 X10*3/uL (0.00-0.03); Imm Gran Pct Auto 0.8 % (0.0-0.4); Lymphocytes Absolute Auto 1.5 X10*3/uL (1.2-4.9); Mean Corpuscular HGB Conc 32.9 g/dl (31.0-35.0); Mean Corpuscular Hemoglobin 31.3 pg (27.0-33.0); Mean Platelet Volume 10.6 fL (9.4-12.3); Monocytes Absolute Auto 1.1 X10*3/uL (0.1-1.2); Monocytes Percent Auto 9.5 % (2-11); Neutrophils Absolute Auto 8.6 x10*3/uL (2.0-8.3); Neutrophils Percent Auto 74.2 % (45-73); Platelet Count 204 X10*3/uL (160-400); Red Blood Count 3.61 X10*6/uL (4.20-5.50); Red Cell Distribution Width 12.9 % (11.0-16.0); White Blood Count 11.6 X10*3/uL (4.8-10.8)
[2024-03-16 07:17] LABS: Alanine Aminotransferase 30 U/L (0-31); Albumin Level 2.7 g/dL (3.5-5.0); Alkaline Phosphatase 100 U/L (39-117); Anion Gap 12 (12-20); Aspartate Amino Transferase 48 U/L (5-31); Bilirubin Direct 0.3 mg/dL (0.0-0.5); Bilirubin Total 0.5 mg/dL (0.0-1.0); Blood Urea Nitrogen 4 mg/dL (9-16); Calcium 8.3 mg/dL (8.4-10.2); Carbon Dioxide 26 mmol/L (22-29); Chloride 100 mmol/L (96-108); Creatinine Clr Calc Pharmacy 68.1; Estimated Glomerular Filt Rate > 60; Glucose Random 132 mg/dL (60-115); Potassium 3.6 mmol/L (3.3-5.1); Sodium 134 mmol/L (135-145); Total Protein 6.1 g/dL (6.5-8.0)
[2024-03-16 07:30] VITALS: BP 143/65; PULSE 86; RESP 14; TEMP 36.6; O2SAT 95
[2024-03-16 07:37] LABS: Glucose, Whole Blood 129 mg/dL (60-115)
--- NOTE | 2024-03-16 07:37 | P.PNGS_ITS ---
Subjective Subjective Date of Service: 03/16/24 <Karla Vital PA-C - Last Filed: 03/16/24 07:41> 03/16/24 <Albino Cabrera MD - Last Filed: 03/16/24 07:59> Interval history: Feels well. OOB and ambulating with walker to bathroom. Tolerating solid diet. Continues to c/o RUQ pain, seems incisional. <Karla Vital PA-C - Last Filed: 03/16/24 07:41> Physical Exam 2 Vital Signs: Vital Signs: Last Vital Signs Temp 97.8 F 03/16/24 07:30 Pulse 86 03/16/24 07:30 Resp 14 03/16/24 07:30 BP 143/65 H 03/16/24 07:30 Pulse Ox 95 03/16/24 07:30 O2 Del Method Room Air 03/16/24 07:30 O2 Flow Rate 1 03/15/24 19:49 BMI result Body Mass Index 30.0 <Karla Vital PA-C - Last Filed: 03/16/24 07:41> Const: General: comfortable, no acute distress and alert <Karla Vital PA-C - Last Filed: 03/16/24 07:41> Resp: Effort & Inspection: normal respiratory effort <ОЛЬГА Mcdonald Last Filed: 03/16/24 07:41> GI: Inspection: No distended and Yes incision (clean) <Karla Vital PA-C - Last Filed: 03/16/24 07:41> Palpation (GI): Soft to palpation, Tenderness to palpation present (GI) (mild incisional) and no guarding <Karla Vital PA-C - Last Filed: 03/16/24 07:41> Skin: General skin exam: no rashes or lesions noted and no jaundice < ОЛЬГА Mcdonald Last Filed: 03/16/24 07:41> Objective Data Active Medications Acetaminophen (Acetaminophen 325 Mg Tablet) 650 mg PO Q6H PRN PRN Reason: Pain, Mild (Pain Scale 1-3), fever or headache Last Admin: 03/10/24 18:04 Dose: 650 mg Documented By: HO.DITOLC Benzocaine (Throat Lozenge, Medicated Lozenge) 1 lozenge MUCOUS MEM Q2H PRN PRN Reason: Sore Throat Last Admin: 03/13/24 16:27 Dose: 1 lozenge Documented By: VINAY Brimonidine Tartrate (Brimonidine Tartrate 0.2% Oph 5 Ml Bottle) 1 drop EYE- BOTH BID [facility] Last Admin: 03/15/24 20:25 Dose: 1 drop Documented By: GUILLE Calcium Carbonate (Calcium Carbonate 750 Mg Tab.Chew) 750 mg PO Q4H PRN PRN Reason: Heartburn Calcium Carbonate/Cholecalciferol (Calcium + Vitamin D 250 Mg Tablet) 500 mg PO BID [facility] Last Admin: 03/15/24 20:25 Dose: 500 mg Documented By: GUILLE Gabapentin (Gabapentin 300 Mg Capsule) 300 mg PO BID [facility] Last Admin: 03/15/24 21:00 Dose: Not Given Documented By: GUILLE Non-Admin Reason: Patient Refused Dextrose/Sodium Chloride (D5ns) 1,000 mls @ 80 mls/hr IVCONT .[id number] [facility] Last Admin: 03/15/24 22:02 Dose: 80 mls/hr Documented By: GUILLE Latanoprost (Latanoprost 0.005 % Ophth Sheila 2.5 Ml Drops) 1 drop EYE-BOTH BEDTIME [facility] Last Admin: 03/15/24 20:25 Dose: 1 drop Documented By: GUILLE Levothyroxine Sodium (Levothyroxine Sodium 75 Mcg Tablet) 75 mcg PO DAILY@0600 [facility] Last Admin: 03/16/24 05:15 Dose: 75 mcg Documented By: GUILLE Magnesium Hydroxide (Milk Of Magnesia 30 Ml Oral.Susp) 30 ml PO DAILY PRN PRN Reason: Constipation Melatonin (Melatonin 3 Mg Tablet) 6 mg PO BEDTIME PRN PRN Reason: Insomnia Melatonin (Melatonin 3 Mg Tablet) 6 mg PO BEDTIME [facility] Last Admin: 03/15/24 20:24 Dose: 6 mg Documented By: GUILLE Morphine Sulfate (Morphine Sulfate 4 Mg/Ml Cartridge) 3 mg IVPUSH Q4H PRN; Protocol PRN Reason: Pain, Severe (Pain Scale 7-10) Last Admin: 03/16/24 05:19 Dose: 3 mg Documented By: GUILLE Multivitamins/Vitamin C (Multivitamin Tablet) 1 tab PO DAILY [facility] Last Admin: 03/15/24 08:33 Dose: 1 tab Documented By: SUSU Ondansetron HCl (Ondansetron Hcl 4 Mg/2 Ml Vial) 4 mg IVPUSH Q8H PRN PRN Reason: Nausea and Vomiting Oxycodone HCl (Oxycodone Hcl Immed Release 5 Mg Tablet) 5 mg PO Q4H PRN PRN Reason: Pain, Moderate(Pain Scale 4-6) Last Admin: 03/13/24 16:26 Dose: 5 mg Documented By: VINAY Sodium Chloride (0.9 % Sodium Chloride Flush 3 Ml Syringe) 3 ml IVFLUSH QSHIFT [facility] Last Admin: 03/15/24 20:56 Dose: Not Given Documented By: GUILLE Non-Admin Reason: IV Running Timolol Maleate (Timolol Maleate 0.5 % Oph Sheila 5 Ml Drbtl) 1 drop EYE-BOTH BID [facility] Last Admin: 03/15/24 20:25 Dose: 1 drop Documented By: GUILLE <Karla Vital PA-C - Last Filed: 03/16/24 07:41> Labs CBC & Chem 7: 03/16/24 05:26 03/16/24 05:26 <Karla Vital PA-C - Last Filed: 03/16/24 07:41> Labs: Laboratory Results - last 24 hr 03/15/24 03/16/24 20:31 05:26 MCV 95.0 MCH 31.3 MCHC 32.9 RDW 12.9 Plt Count 204 D MPV 10.6 Immature Gran % (Auto) 0.8 H Neut % (Auto) 74.2 H Lymph % (Auto) 13.0 L [place] % (Auto) 9.5 Eos % (Auto) 2.2 Baso % (Auto) 0.3 Lymph # (Auto) 1.5 [place] # (Auto) 1.1 Eos # (Auto) 0.3 Baso # (Auto) 0.0 Abs Immat Gran (auto) 0.09 H Absolute Neuts (auto) 8.6 H Absolute Nucleated RBC 0.000 Nucleated RBC % (auto) 0.0 Anion Gap 12 Estim Creat Clear Calc 68.1 Estimated GFR > 60 POC Glucose 152 H Random Glucose 132 H Calcium 8.3 L Total Bilirubin 0.5 Direct Bilirubin 0.3 AST 48 H ALT 30 Alkaline Phosphatase 100 Total Protein 6.1 L Albumin 2.7 L <Karla Vital PA-C - Last Filed: 03/16/24 07:41> Procedures Date of Service Date of Service: 03/16/24 <Karla Vital PA-C - Last Filed: 03/16/24 07:41> 03/16/24 <Albino Cabrera MD - Last Filed: 03/16/24 07:59> Progress Note: A&P Assessment and plan (1) Gallstone pancreatitis: Status: Acute <Karla Vital PA-C - Last Filed: 03/16/24 07:41> (2) S/P laparoscopic cholecystectomy: Status: Acute <Karla Vital PA-C - Last Filed: 03/16/24 07:41> Assessment and Plan: POD #3 following laparoscopic cholecystectomy with cholangiogram. Patient tolerated the procedure well but does report some continued incisional discomfort although is comfortable. Tolerating solid diet. Abd benign with appropriate post op tenderness. Wounds are clean. AM labs reviewed. WBC remains mildly elevated. LFTs improved. Stable from surgical standpoint. Can f/u in office in [address] Cabrera. <Karla Vital PA-C - Last Filed: 03/16/24 07:41> Time Spent With Patient Time: Total time managing care of this patient today ____ minutes. <Karla Vital PA-C - Last Filed: 03/16/24 07:41> Quality Stroke Does the patient have a stroke diagnosis?: No <ОЛЬГА Mcdonald Last Filed: 03/16/24 07:41> VTE Prior VTE?: No <Karla Vital PA-C - Last Filed: 03/16/24 07:41> VTE Risk Level:: Medical - moderate - high <ОЛЬГА Mcdonald Last Filed: 03/16/24 07:41> VTE Device Contraindication: N/A - Device Ordered <Karla Vital PA-C - Last Filed: 03/16/24 07:41> VTE Drug Contraindication: Treatment Not Indicated <Karla Vital PA-C - Last Filed: 03/16/24 07:41>
[2024-03-16] MEDS: Multivitamin TABLET 1 TAB PO (08:28)
[2024-03-16] MEDS: Calcium + Vitamin D 250 MG TABLET 500 MG PO ×2 (08:28→19:38)
[2024-03-16] MEDS: Gabapentin 300 MG CAPSULE PO ×2 (08:28→19:38)
[2024-03-16] MEDS: polyethylene glycoL 3350 17 GM POWD.PACK PO (08:28)
[2024-03-16] MEDS: 0.9 % Sodium Chloride Flush 3 ML SYRINGE IVFLUSH ×3 (08:28→19:39)
[2024-03-16] MEDS: Brimonidine Tartrate 0.2% Oph 5 ML BOTTLE 1 DROP EYE-BOTH ×2 (08:32→19:41)
[2024-03-16] MEDS: timoloL maleate 0.5 % Oph Sol 5 ML DRBTL 1 DROP EYE-BOTH ×2 (08:32→19:41)
--- NOTE | 2024-03-16 09:13 | HO.PM.IMPN ---
Subjective Subjective Date of Service: 03/16/24 Interval History: Seen and examined this morning Continues to have abdominal pain seems incisional s/p lap emiliano Review of Systems Review of Systems: Yes all other systems are reviewed and are negative Constitutional Constitutional: Denies fever(s) Physical Exam Vital Signs: Vital Signs: Last Vital Signs Temp 97.8 F 03/16/24 07:30 Pulse 86 03/16/24 07:30 Resp 14 03/16/24 07:30 BP 143/65 H 03/16/24 07:30 Pulse Ox 95 03/16/24 07:30 O2 Del Method Room Air 03/16/24 07:30 O2 Flow Rate 1 03/15/24 19:49 BMI result Body Mass Index 30.0 Appearing in no acute distress lung sounds are clear to auscultation heart regular rate rhythm, clear S1, S2 positive bowel sounds, abdomen is soft, nontender, incisional pain neuro patient is alert x3, no focal deficits Objective Data Active Medications Acetaminophen (Acetaminophen 325 Mg Tablet) 650 mg PO Q6H PRN PRN Reason: Pain, Mild (Pain Scale 1-3), fever or headache Last Admin: 03/10/24 18:04 Dose: 650 mg Documented By: ESVIN Benzocaine (Throat Lozenge, Medicated Lozenge) 1 lozenge MUCOUS MEM Q2H PRN PRN Reason: Sore Throat Last Admin: 03/13/24 16:27 Dose: 1 lozenge Documented By: VINAY Bisacodyl (Bisacodyl 10 Mg Supp.Rect) 10 mg SD DAILY PRN PRN Reason: Constipation Brimonidine Tartrate (Brimonidine Tartrate 0.2% Oph 5 Ml Bottle) 1 drop EYE-BOTH BID [facility] Last Admin: 03/16/24 08:32 Dose: 1 drop Documented By: MONICA Calcium Carbonate (Calcium Carbonate 750 Mg Tab.Chew) 750 mg PO Q4H PRN PRN Reason: Heartburn Calcium Carbonate/Cholecalciferol (Calcium + Vitamin D 250 Mg Tablet) 500 mg PO BID [facility] Last Admin: 03/16/24 08:28 Dose: 500 mg Documented By: MONICA Gabapentin (Gabapentin 300 Mg Capsule) 300 mg PO BID [facility] Last Admin: 03/16/24 08:28 Dose: 300 mg Documented By: MONICA Dextrose/Sodium Chloride (D5ns) 1,000 mls @ 80 mls/hr IVCONT .[id number] [facility] Last Admin: 03/15/24 22:02 Dose: 80 mls/hr Documented By: GUILLE Latanoprost (Latanoprost 0.005 % Ophth Sheila 2.5 Ml Drops) 1 drop EYE-BOTH BEDTIME [facility] Last Admin: 03/15/24 20:25 Dose: 1 drop Documented By: GUILLE Levothyroxine Sodium (Levothyroxine Sodium 75 Mcg Tablet) 75 mcg PO DAILY@0600 [facility] Last Admin: 03/16/24 05:15 Dose: 75 mcg Documented By: GUILLE Magnesium Hydroxide (Milk Of Magnesia 30 Ml Oral.Susp) 30 ml PO DAILY PRN PRN Reason: Constipation Melatonin (Melatonin 3 Mg Tablet) 6 mg PO BEDTIME PRN PRN Reason: Insomnia Melatonin (Melatonin 3 Mg Tablet) 6 mg PO BEDTIME [facility] Last Admin: 03/15/24 20:24 Dose: 6 mg Documented By: GUILLE Morphine Sulfate (Morphine Sulfate 4 Mg/Ml Cartridge) 3 mg IVPUSH Q4H PRN; Protocol PRN Reason: Pain, Severe (Pain Scale 7-10) Last Admin: 03/16/24 05:19 Dose: 3 mg Documented By: GUILLE Multivitamins/Vitamin C (Multivitamin Tablet) 1 tab PO DAILY [facility] Last Admin: 03/16/24 08:28 Dose: 1 tab Documented By: MONICA Ondansetron HCl (Ondansetron Hcl 4 Mg/2 Ml Vial) 4 mg IVPUSH Q8H PRN PRN Reason: Nausea and Vomiting Oxycodone HCl (Oxycodone Hcl Immed Release 5 Mg Tablet) 5 mg PO Q4H PRN PRN Reason: Pain, Moderate(Pain Scale 4-6) Last Admin: 03/13/24 16:26 Dose: 5 mg Documented By: VINAY Polyethylene Glycol (Polyethylene Glycol 3350 17 Gm Powd.Pack) 17 gm PO DAILY [facility] Last Admin: 03/16/24 08:28 Dose: 17 gm Documented By: MONICA Sodium Chloride (0.9 % Sodium Chloride Flush 3 Ml Syringe) 3 ml IVFLUSH QSHIFT [facility] Last Admin: 03/16/24 08:28 Dose: 3 ml Documented By: MONICA Timolol Maleate (Timolol Maleate 0.5 % Oph Sheila 5 Ml Drbtl) 1 drop EYE-BOTH BID [facility] Last Admin: 03/16/24 08:32 Dose: 1 drop Documented By: MONICA Labs 03/16/24 05:26 03/16/24 05:26 Labs: Laboratory Results - last 24 hr 03/15/24 03/16/24 03/16/24 20:31 05:26 07:33 MCV 95.0 MCH 31.3 MCHC 32.9 RDW 12.9 Plt Count 204 D MPV 10.6 Immature Gran % (Auto) 0.8 H Neut % (Auto) 74.2 H Lymph % (Auto) 13.0 L [place] % (Auto) 9.5 Eos % (Auto) 2.2 Baso % (Auto) 0.3 Lymph # (Auto) 1.5 [place] # (Auto) 1.1 Eos # (Auto) 0.3 Baso # (Auto) 0.0 Abs Immat Gran (auto) 0.09 H Absolute Neuts (auto) 8.6 H Absolute Nucleated RBC 0.000 Nucleated RBC % (auto) 0.0 Anion Gap 12 Estim Creat Clear Calc 68.1 Estimated GFR > 60 POC Glucose 152 H 129 H Random Glucose 132 H Calcium 8.3 L Total Bilirubin 0.5 Direct Bilirubin 0.3 AST 48 H ALT 30 Alkaline Phosphatase 100 Total Protein 6.1 L Albumin 2.7 L Assessment and Plan (1) Gallstone pancreatitis: Status: Acute Plan 88 year old women with abdominal pain, and vomiting with abd ct showing pancreatitis Acute gallstone pancreatitis lipase initially >3000, down to 154 triglycerides 70, no etoh use due to gallstone pancreatitis as abdominal US with multiple mobile gallstones s/p MRCP GI following seen by general surgery - s/p lap emiliano 03/13/24, stable from surgical standpoint, can follow up with Dr. Cabrera in one week Hypoglycemia. Resolved likely from poor po intake encourage po intake Hx of glaucoma continue home eye drops Hypothyroidism continue levothyroxine Chronic hip pain On gabapentin back pain PT rec STR, but patient would prefer to go home DVT prophylaxis with SCD boots attending Dr. Mariee Full code DISPO likely home with PT when medically clear continue hospital tx of acute pancreatitis Quality Stroke Does the patient have a stroke diagnosis?: No VTE Prior VTE?: No VTE Risk Level:: Medical - moderate - high VTE Device Contraindication: N/A - Device Ordered VTE Drug Contraindication: Treatment Not Indicated
[2024-03-16 11:41] LABS: Glucose, Whole Blood 122 mg/dL (60-115)
[2024-03-16 12:00] VITALS: BP 180/74; PULSE 75; RESP 14; TEMP 36.6; O2SAT 96
[2024-03-16] MEDS: Dextrose 5 % and 0.9 % NaCl 1,000 ML 80 ML IVCONT (12:24)
[2024-03-16 12:48] VITALS: BP 178/70; RESP 20; O2SAT 94
--- NOTE | 2024-03-16 12:52 | PC.NURSE ---
Addendum entered by Vivian Garcia RN 03/16/24 17:29: MAKEUP ARTISTRY INSTRUCTOR made aware pts BP continues to be elevated 1x dose PO Hydrazine given per orders, pending effectiveness. Original Note: Suhail Dustin made aware via tiger text at 12:52, pt BP was elevated, manually retaken 178/70. At this time pt was coughing and had chewed up carrots on her shirt. When asked pt is she had choked pt said she had. Noted that pt only has upper dentures. Per pt no lower dentures at hospital. LS mildly wheezy. Pt in not in any apparent distress, o2 94%. No new orders at this time.
[2024-03-16 15:15] VITALS: BP 187/76; PULSE 88; RESP 20; TEMP 36.7; O2SAT 96
[2024-03-16] MEDS: oxyCODONE HCl Immed Release 5 MG TABLET PO (16:41)
[2024-03-16 17:28] VITALS: BP 149/73
[2024-03-16] MEDS: hydrALAZINE HCl 10 MG TABLET PO (17:28)
[2024-03-16 19:25] VITALS: BP 131/62; PULSE 86; RESP 17; TEMP 36; O2SAT 96
[2024-03-16] MEDS: Latanoprost 0.005 % Ophth Sol 2.5 ML DROPS 1 DROP EYE-BOTH (19:38)
[2024-03-16] MEDS: Melatonin 3 MG TABLET 6 MG PO (19:38)
[2024-03-17 03:25] VITALS: BP 133/81; PULSE 80; RESP 17; TEMP 36.7; O2SAT 94
[2024-03-17] MEDS: Levothyroxine Sodium 75 MCG TABLET PO (05:03)
[2024-03-17 07:21] VITALS: BP 142/71; PULSE 82; RESP 14; TEMP 36; O2SAT 96
[2024-03-17] MEDS: Multivitamin TABLET 1 TAB PO (07:49)
[2024-03-17] MEDS: Calcium + Vitamin D 250 MG TABLET 500 MG PO (07:49)
[2024-03-17] MEDS: Gabapentin 300 MG CAPSULE PO (07:49)
[2024-03-17] MEDS: polyethylene glycoL 3350 17 GM POWD.PACK PO (07:50)
[2024-03-17] MEDS: Brimonidine Tartrate 0.2% Oph 5 ML BOTTLE 1 DROP EYE-BOTH (07:50)
[2024-03-17] MEDS: timoloL maleate 0.5 % Oph Sol 5 ML DRBTL 1 DROP EYE-BOTH (07:50)
[2024-03-17] MEDS: 0.9 % Sodium Chloride Flush 3 ML SYRINGE IVFLUSH (07:50)
--- NOTE | 2024-03-17 09:02 | P.DS_ITS ---
DS: Providers Provider Date of Service: 03/17/24 Date of admission: 03/10/24 16:09 Primary care physician: Gisselle Christensen MD Consults: 03/10/24 16:09 Consult to Gastroenterology Routine Consulting Provider: Aye Gardner Reason for consultation: pancreatitis, transaminitis 03/12/24 09:51 Consult to General Surgery Routine Consulting Provider: [facility] General Surgeons Reason for consultation: gallstone pancreatitis Has provider been notified: No DS: Diagnosis Discharge Diagnosis (1) Gallstone pancreatitis: Status: Acute DS: Summary Hospital Course Hospital Course: History and physical as per admitting provider. 88 year old women presenting with abdominal pain and vomiting. She reports that she had her dinner for meals on wheels which was a hamburger, rash potatoes and cut up carrots and she reported around 19:00 she started to have nausea and had an episode of vomiting. She reports that she laid down after that and then woke up at midnight and had another episode of vomiting just liquid with ?black pieces?. She reported the entire night into passenger agent she had episodes of vomiting. She denied any chest pain, shortness of breath, diarrhea, recent travel, sick contacts, recent illness, fever. She reported that her [employer] came to her home around 07:00, she used her lifeline to call for EMS and was brought to the emergency department. Patient denies any alcohol use. Reports that she lives alone but has a [employer] and has a son that lives locally. In the ER, Abdominal ct showing edematous pancreas, Lipase >3000, ast 275, alt 101. Stable vital signs. She was given Zofran, 1 L of IV fluid, IV Protonix, morphine. She will be admitted for further management of acute pancreatitis. 88-year-old woman treated for acute gallstone pancreatitis. Lipase initially greater than 3000, triglycerides 70. Abdominal ultrasound showing multiple mobile gallstones. MRCP showed gallstones and cholecystitis. She was treated with IV fluids and pain medication. Status post laparoscopic cholecystectomy on 03/13/2024. Diet was advanced, patient has been able to eat. She did have some constipation that was treated with MiraLax and suppositories. She reports still having some mild abdominal pain, seen and evaluated by General surgery who thinks this is related to incisional pain. Physical therapy evaluated the patient recommended short-term rehab but patient does not want to go and would rather return home with services. History of glaucoma. Continue home eye drops Hypothyroidism. Continue levothyroxine Chronic pain. Continue gabapentin Time Attestation Discharge Coordination Time (in mins): 35 Quality: Safe Use of Opioids Does Pt have an Active Cancer Diagnosis on the Problem List?: No Quality: Stroke Does the patient have a stroke diagnosis?: No Physical Exam Vital Signs: Vital Signs: Last Vital Signs Temp 96.8 F 03/17/24 07:21 Pulse 82 03/17/24 07:21 Resp 14 03/17/24 07:21 BP 142/71 H 03/17/24 07:21 Pulse Ox 96 03/17/24 07:21 O2 Del Method Room Air 03/17/24 07:21 O2 Flow Rate 1 03/15/24 19:49 BMI result Body Mass Index 30.0 Appearing in no acute distress head is normocephalic atraumatic eyes pupils are PERRLA sclera is anicteric mouth throat mucous membranes are intact and moist neck is supple no lymphadenopathy, no JVD noted lung sounds are clear to auscultation heart regular rate rhythm, clear S1, S2 positive bowel sounds, abdomen is soft, nontender neuro patient is alert x3, no focal deficits DS: Data Data Completed and Pending Completed studies during hospitalization [Text1]: Pending at discharge 03/13/24 13:38 Surgical [PTH] Routine Labs on day of discharge: Laboratory Results - last 24 hr 03/16/24 11:36 POC Glucose 122 H Discharge Plan Discharge Anticipated Discharge Date/Time: 03/17/24 08:56 Patient Disposition: Home Health Service Discharge Diagnosis: Acute gallstone pancreatitis Hypoglycemia Referrals: Albino Cabrera MD [Physician] - 1 Week Gisselle Christensen MD [Primary Care Provider] - 1 Week Discharge Medications: New oxycodone 5 mg Tablet 5 mg PO Q4H PRN (Reason: Pain, Moderate(Pain Scale 4-6)) Qty: 24 0RF Rx Instructions: Partial Fill upon patient request. polyethylene glycol 3350 17 gram Powder In Packet 17 g PO DAILY Qty: 30 0RF Continued levothyroxine 75 mcg tablet 75 mcg PO DAILY@0600 gabapentin 300 mg capsule 300 mg PO BID calcium carbonate-vitamin D3 600 mg-10 mcg (400 unit) tablet 1 tab PO BID brimonidine-timolol [Combigan] 0.2-0.5 % drops 1 drp ophthalmic (eye) BID melatonin 5 mg tablet 5 mg PO BEDTIME multivitamin with folic acid [Daily-Vira (with folic acid)] 400 mcg tablet 1 tab PO DAILY latanoprost 0.005 % drops 1 drp ophthalmic (eye) BEDTIME acetaminophen [Tylenol] 325 mg Tablet 650 mg PO Q6H PRN (Reason: Pain) Discharge Orders: Discharge Order (Routine); Ordered 03/17/24 Ordered By: Moraima Chan Diet: Advance to usual diet Activity on Discharge: No heavy lifting Stand Alone Forms: Patient Portal Discharge page Print Language: Bruneian Activity Restrictions/Additional Instructions: Ice to wound 20 minutes several times today and tomorrow. May shower in 2 days. Remove outside dressing only. Leave Steri-Strips intact. No strenuous activities Care Plan Goals: Follow-up with general surgeon in 1 week Health Concerns: Acute gallstone pancreatitis Hypoglycemia Plan of Treatment: Follow-up with primary care provider as needed Take all medications as prescribed Assessment: Treated for gallstone pancreatitis, status post laparoscopic cholecystectomy on 03/13/2024
[2024-03-17] MEDS: bisacodyL 10 MG SUPP.RECT PR (10:16)
[2024-03-17 11:23] LABS: Glucose, Whole Blood 136 mg/dL (60-115)
--- NOTE | 2024-03-17 11:28 | MHC.CM.PN ---
IMM 03/17/24, PT MEDICALLY CLEARED FOR DC HOME W/NEW [facility] FOR SN/PT, [facility] FOR CHAIR VAN AT 2PM
--- NOTE | 2024-03-17 11:34 | W.MHC.F2F ---
Service Date Service Date: 03/17/24 Encounter Date of encounter: 03/17/24 Reasons for Services Signs and symptoms assessed: Lap cholecystectomy Choledocholithiasis Reason for care home: CV/CP assess and/or care and wound care (Incision check) Reason for physical therapy: home safety and mobility Homebound: Leaving the home is medically contraindicated at this time without the asist of a device and/or another person due th the listed conditions above and below. Reason homebound: weakness related to hospital stay and other (Post surgery) Certification: Based on the above findings, I certify that this patient is confined to the home and needs intermittent care home care, physical therapy and/or speech therapy, or continues to need occupational therapy. The patient is under my care, and I have initiated the establishment of the plan of care. The patient will be followed by a physician who will periodically review the plan of care. Time Spent With Patient Time: Total time managing care of this patient today ____ minutes.
== END 2024-03-17 14:08 | disposition home health service (06) | DRG 417 ==
LOC: HO.ED 13:28 → HO.EDOVER 16:17 → HO.S3 03-11 05:31
PROVIDERS: Physician Assistant Medical; Surgery; Admitting Provider Nurse Practitioner Acute Care; Emergency Provider Emergency Medicine; PCP Internal Medicine; Visit Provider Nurse Practitioner Acute Care
PROC: 0FT44ZZ Resection of Gallbladder, Percutaneous Endoscopic Approach (ICD-10-PCS; CPT 47562; principal; 2024-03-13 12:40)
DX: K80.20 Calculus of gallbladder without cholecystitis without obstruction (principal); K85.10 Biliary acute pancreatitis without necrosis or infection; E03.9 Hypothyroidism, unspecified; G89.29 Other chronic pain; M25.559 Pain in unspecified hip; E16.2 Hypoglycemia, unspecified; H40.9 Unspecified glaucoma; Z91.041 Radiographic dye allergy status; Z79.890 Hormone replacement therapy; Z79.899 Other long term (current) drug therapy
CPT/HCPCS: 36415; 74176; 74181; 76705; 80048; 80053; 80076; 81001; 81003; 82248; 82947; 83690; 83735; 84478; 85025; 85027; 87086; 88304; 97162; 99285; C1726; C9113; J0690; J2270; J2371; J2405; J2704; J2795; J3010; J7120; Q9967

== ENCOUNTER → 2024-03-10 16:09 | Outpatient (BNV) | payer OTHER, SELFPAY | PROVIDERS: Admitting Provider Nurse Practitioner Acute Care; Emergency Provider Emergency Medicine; PCP Internal Medicine; Visit Provider Surgery | DX: K85.10 Biliary acute pancreatitis without necrosis or infection (principal); K80.20 Calculus of gallbladder without cholecystitis without obstruction | CPT/HCPCS: 47563; 99024; 99223 ==

== ENCOUNTER → 2024-03-10 16:09 | Outpatient (BNV) | payer MEDICARE, SELFPAY | PROVIDERS: Admitting Provider Nurse Practitioner Acute Care; Emergency Provider Emergency Medicine; PCP Internal Medicine; Visit Provider Nurse Practitioner Acute Care | DX: K85.10 Biliary acute pancreatitis without necrosis or infection (principal) | CPT/HCPCS: 99223; 99232; 99239; G0180 ==

== ENCOUNTER → 2024-03-10 16:09 | Outpatient (BNV) | payer OTHER, SELFPAY | PROVIDERS: Admitting Provider Nurse Practitioner Acute Care; Emergency Provider Emergency Medicine; PCP Internal Medicine; Visit Provider Internal Medicine Gastroenterology | DX: K80.20 Calculus of gallbladder without cholecystitis without obstruction (principal); R79.89 Other specified abnormal findings of blood chemistry; K85.90 Acute pancreatitis without necrosis or infection, unspecified | CPT/HCPCS: 99499 ==

== ENCOUNTER 2024-03-23 09:18 | Outpatient (AMB) | payer OTHER, SELFPAY ==
--- NOTE | 2024-03-23 09:35 | A.OFFVIS_ITS ---
Intake Visit Reasons: s/p lap emiliano Intake Note: Patient here s/p lap emiliano. Reports incisions healing well. Patient c/o: pain on abd. Denies oozing, bleeding. Still taking rx pain meds as needed. SX: 03-13-2024. Watchstander Required: Yes Watchstander Name: Natalie BUSTILLOS Accompanied by: daughter Rachel Allergies Iodinated Contrast Media [IV Dye, Iodine Containing] Allergy (Severe, Verified 03/23/24 09:36) Difficulty Breathing acetaminophen [From Percocet] Adverse Reaction (Mild, Verified 03/23/24 09:36) ITCHING oxycodone [From Percocet] Adverse Reaction (Mild, Verified 03/23/24 09:36) ITCHING HPI Comments Details: Patient presents with her daughter for follow-up. Aside from mild incisional discomfort she is doing well he has tolerating a diet. Having regular bowel habits. She is minimal incisional discomfort. She is slowly but steadily increasing her activity level. [facility] Medical History Glaucoma Hypothyroidism Surgical History (Updated 03/23/24 @ 09:36 by Albino Cabrera MD) S/P laparoscopic cholecystectomy (03/13/24) Social History Household Members: None Household Members Other:: Lives alone Housing: Apartment Do you presently have visiting nurse or other home services: Yes Alcohol intake: never Patient Tobacco Use Status: Never used Tobacco Second Hand Smoke Exposure: No service: No Physical Exam Eyes Other: Anicteric GI Other: Abdomen is soft, benign. All wounds clean dry and intact Assessment & Plan Assessment & Plan (1) S/P laparoscopic cholecystectomy: Onset Date: 03/13/24 Comment: Dr. Rick Posada Code(s): Z90.49 - Acquired absence of other specified parts of digestive tract Category: Surgical (2) Postop check: Code(s): Z09 - Encounter for follow-up examination after completed treatment for cond itions other than malignant neoplasm Category: Surgical Plan Patient's daughter have been given local instructions, and patient will otherwise follow-up p.r.n.. All questions answered. Coding Level of Care Code Global (65357) Diagnoses S/P laparoscopic cholecystectomy Z90.49 Postop check Z09
== END 2024-03-23 09:34 | disposition home or self-care (01) ==
PROVIDERS: PCP Internal Medicine; Visit Provider Surgery
DX: Z90.49 Acquired absence of other specified parts of digestive tract (principal); Z09 Encounter for follow-up examination after completed treatment for conditions other than malignant neoplasm
CPT/HCPCS: 99024

== ENCOUNTER → 2024-03-23 09:18 | Outpatient (BNVA) | payer OTHER, SELFPAY | PROVIDERS: PCP Internal Medicine; Visit Provider Surgery | DX: Z09 Encounter for follow-up examination after completed treatment for conditions other than malignant neoplasm (principal); Z90.49 Acquired absence of other specified parts of digestive tract | CPT/HCPCS: 99212 ==

== ENCOUNTER 2025-08-17 09:30 | Emergency (ER) | payer OTHER, SELFPAY ==
--- NOTE | ~2025-08-17 | US_ITS ---
EXAMINATION: US LOWER EXTREMITY VEINS BILATERAL HISTORY: Pain and swelling, right leg greater than left COMPARISON: There are no prior studies available for comparison. TECHNIQUE: Duplex and color Doppler sonographic examination of the deep venous system of the bilateral lower extremities was performed. FINDINGS: The right common femoral, superficial femoral, and popliteal veins are patent demonstrating normal compressibility, spontaneous flow, and augmentation. There is a normal color and spectral Doppler waveform appearance of the visualized deep venous system above the knee. The posterior tibial veins are patent. The peroneal veins are not well visualized. The left common femoral, superficial femoral, and popliteal veins are patent demonstrating normal compressibility, spontaneous flow, and augmentation. There is a normal color and spectral Doppler waveform appearance of the visualized deep venous system above the knee. The posterior tibial veins are patent. The peroneal veins are not well visualized. US/US venous duplex LE BI IMPRESSION: No evidence of acute DVT in the bilateral lower extremities. Electronically signed by: Ashwin Herron MD 08/17/2025 10:49 AM [facility] [place]
--- NOTE | ~2025-08-17 | NM_ITS ---
EXAMINATION: NM LUNG PERFUSION HISTORY: Tachycardia leg edema concern for pulmonary embolus. TECHNIQUE: A pulmonary perfusion scan was performed following the intravenous administration of 4.0 mCi technetium 99m-MAA. COMPARISON: Correlation is made with an AP portable view of the chest performed earlier in the day. FINDINGS: There is slight patchy uptake of the radiopharmaceutical bilaterally. No segmental or subsegmental perfusion defects are identified. Findings are consistent with a very low probability for pulmonary emboli. NM/NM pul perfusion IMPRESSION: Very low probability for pulmonary emboli. Electronically signed by: Ashwin Herron MD 08/17/2025 01:17 PM [facility]
--- NOTE | ~2025-08-17 | XR_ITS ---
EXAMINATION: XR CHEST 1 VIEW HISTORY: Concern for edema COMPARISON: There are no prior studies available for comparison. FINDINGS: A single AP portable view of the chest performed at 9:52 AM is submitted. There is linear scarring in the lingula. The lungs are otherwise clear. There is no pleural effusion, pneumothorax, or pulmonary vascular congestion. The heart is normal in size. The aorta is calcified. There is degenerative disc disease of the spine. XR/XR chest 1V IMPRESSION: No acute cardiopulmonary abnormality. Electronically signed by: Ashwin Herron MD 08/17/2025 10:01 AM [facility] [place]
--- NOTE | 2025-08-17 09:35 | ED.GENADULT ---
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 Patient has no history of CHF has never been on diuretic before. She notes no trauma, rash to the legs, she has no chest pain or trouble breathing. She has no orthopnea. She notes she had a remote surgery in the right leg but has never experienced swelling or issue since. She states she does not keep her legs dependent. MD complaint: Leg edema Onset (ago): day(s) (3) Location: left, right and lower extremity Radiation: non-radiation Severity: mild Quality: aching Pain Consistency: intermittent Relieving factors: none Exacerbating factors: other (Palpation) Associated symptoms: denies other symptoms Related Data Home Medications ?Medication ?Instructions ?Recorded ?Confirmed acetaminophen 325 mg tablet 650 mg PO Q6H PRN Pain 03/10/24 03/23/24 (Tylenol) brimonidine 0.2 %-timolol 0.5 % 1 drp ophthalmic (eye) BID 03/10/24 03/23/24 eye drops (Combigan) calcium 600 mg (as 1 tab PO BID 03/10/24 03/23/24 carbonate)-vitamin D3 10 mcg (400 unit) tablet gabapentin 300 mg capsule 300 mg PO BID 03/10/24 03/23/24 latanoprost 0.005 % eye drops 1 drp ophthalmic (eye) BEDTIME 03/10/24 03/23/24 levothyroxine 75 mcg tablet 75 mcg PO DAILY@0600 03/10/24 03/23/24 melatonin 5 mg tablet 5 mg PO BEDTIME 03/10/24 03/23/24 multivitamin with folic acid 400 1 tab PO DAILY 03/10/24 03/23/24 mcg tablet (Daily-Vira (with folic acid)) Previous Rx's ?Medication ?Instructions ?Recorded oxycodone 5 mg tablet 5 mg PO Q4H PRN Pain, 03/17/24 Moderate(Pain Scale 4-6) #24 tabs polyethylene glycol 3350 17 gram 17 g PO DAILY #30 ea 03/17/24 oral powder packet comp.stocking,knee,long,medium #12 ea 08/17/25 furosemide 20 mg tablet (Lasix) 20 mg PO DAILY #3 tabs 08/17/25 Allergies Allergy/AdvReac Type Severity Reaction Status Date / Time Iodinated Contrast Media (IV Allergy Severe Difficulty Verified 08/17/25 09:43 Dye, Iodine Containing) Breathing oxycodone (From Percocet) AdvReac Mild ITCHING Verified 08/17/25 09:43 Review of Systems Review of Systems: Constitutional : No Fever, No Chills, No Fatigue ENT/Mouth : No sore throat, No Rhinorrhea Eyes: No Eye Pain, No Swelling, No Redness Cardiovascular : No Chest Pain, No SOB, No Dyspnea on Exertion, positive leg edema Respiratory : No Cough, No Sputum Gastrointestinal : No Nausea, No Vomiting, No Diarrhea, No abdominal Pain Genitourinary : No Dysuria, No Urinary Frequency, No Hematuria, Musculoskeletal : No joint pain, No Myalgias, No Joint Swelling Skin : No Skin Lesions, No rash All other systems reviewed and are negative [facility] Past Medical History Attestation statement: The following information was validated with the patient. Source: old records reviewed Medical History Gallstone pancreatitis Glaucoma Hypothyroidism Surgical History (Updated 03/25/24 @ 00:02 by Yamileth Toussaint) S/P laparoscopic cholecystectomy (03/13/24) Social History Social History Household Members: None Household Members Other:: Lives alone Housing: Apartment Do you presently have visiting nurse or other home services: Yes Alcohol intake: never Patient Tobacco Use Status: Never used Tobacco Smoked in Last 30 Days: No Second Hand Smoke Exposure: No Use of substances other than those prescribed or required for medical reasons: No Advance Directives: No Advance Directives Information Provided: Yes service: No Physical Exam ED Vital Signs: Vital Signs - 24 hr 08/17/25 09:40 08/17/25 12:15 Temperature 97.7 F 98.1 F Pulse Rate 102 H 79 Respiratory Rate 18 13 Blood Pressure 114/51 L 115/60 Pulse Oximetry 100 98 Oxygen Delivery Method Room Air Room Air BMI result Body Mass Index 33.7 Appearance: Alert. Oriented X3. No acute distress. Eyes: Pupils equal, round and reactive to light. ENT: Pharynx normal. Neck: Normal inspection. Neck supple. CVS: Tachycardic heart rate and rhythm. Pulses normal. Respiratory: No respiratory distress. Breath sounds normal. Abdomen: Soft and nontender. Skin: Skin warm and dry. Normal skin color. Normal skin turgor. Extremities: Her right lower extremity has 1+ pitting edema about the foot, ankle, anterior [place] on the right leg. Her left leg has trace pitting edema. Neither leg has any redness or warmth, she has old scars on the right foot and ankle. Her feet are both warm and well perfused Neuro: Oriented X 3. No motor deficit. No sensory deficit. CN2-12 intact Course Course Course Narrative: 11:02 AM 08/17/2025 (ROLANDA ): TSH 5 but I do not suspect this is the cause of the swelling, my plan would be to start her on compression stockings if V/Q scan is negative I am worried with the swelling and tachycardia that this could be a pulmonary embolus, if that is negative we will DC home with compression stockings as well as short course Lasix Medical Decision Making Medical Decision Making [facility] Narrative: 89-year-old female with past medical history of hypothyroidism, pancreatitis, glaucoma, history of cholecystectomy here with complaint of right greater than left lower extremity edema. She has no signs of pulmonary edema. She denies any chest pain or shortness of breath though she is tachycardic on exam. At this time I am going to obtain EKG, chest x-ray for pulmonary edema, basic labs, bilateral ultrasound to evaluate for possible lower extremity DVT. Her extremities are neurovascularly intact. I do not see any infection on clinical exam. Differential Diagnosis Differential Diagnoses: The differential diagnosis associated with the presentation includes CHF, hypothyroidism, DVT, dependent edema, pulmonary embolus Admission/Observation Consideration of admission/observation: Escalation of care including admission/observation considered Workup reassuring Labs reassuring mild bump and TSH by it I think this is the cause Negative DVT study and low probability on pulmonary perfusion at this time I do not suspect pulmonary embolus Plan to start on compression stockings and low-dose Lasix for 3 days Lab Data [facility] Lab Attestation statement: I reviewed the patient's lab results. 08/17/25 09:53 08/17/25 09:53 Labs: Lab Results 08/17/25 08/17/25 Range/Units 09:52 09:53 WBC 5.6 (4.8-10.8) X10*3/uL RBC 3.88 L (4.20-5.50) X10*6/uL Hgb 12.0 (12.0-16.0) g/dl Hct 37.1 (37.0-47.0) % MCV 95.6 (80.0-98.0) fL MCH 30.9 (27.0-33.0) pg MCHC 32.3 (31.0-35.0) g/dl RDW 12.6 (11.0-16.0) % Plt Count 197 (160-400) X10*3/uL MPV 10.0 (9.4-12.3) fL Immature Gran % (Auto) 0.2 (0.0-0.4) % Neut % (Auto) 47.7 (45-73) % Lymph % (Auto) 38.9 (20-40) % [place] % (Auto) 9.7 (2-11) % Eos % (Auto) 3.0 (0-4) % Baso % (Auto) 0.5 (0-2) % Lymph # (Auto) 2.2 (1.2-4.9) X10*3/uL [place] # (Auto) 0.5 (0.1-1.2) X10*3/uL Eos # (Auto) 0.2 (0.0-0.4) X10*3/uL Baso # (Auto) 0.0 (0.0-0.2) X10*3/uL Abs Immat Gran (auto) 0.01 (0.00-0.03) X10*3/uL Absolute Neuts (auto) 2.7 (2.0-8.3) x10*3/uL Absolute Nucleated RBC 0.000 (0.0-0.012) X10*3/uL Nucleated RBC % (auto) 0.0 (0.0-0.2) /100WBC Sodium 145 (135-145) mmol/L Potassium 3.7 (3.3-5.1) mmol/L Chloride 108 (96-108) mmol/L Carbon Dioxide 31 H (22-29) mmol/L Anion Gap 10 L (12-20) BUN 22 H (9-16) mg/dL Creatinine 0.85 (0.5-1.4) mg/dL Estim Creat Clear Calc 46.8 Estimated GFR > 60 Random Glucose 110 (60-115) mg/dL Calcium 9.8 D (8.4-10.2) mg/dL Magnesium 2.0 (1.6-2.6) mg/dL Total Bilirubin 0.4 (0.0-1.0) mg/dL Direct Bilirubin 0.2 (0.0-0.5) mg/dL AST 34 H (5-31) U/L ALT 18 (0-31) U/L Alkaline Phosphatase 90 (39-117) U/L Troponin I High Sens 3.0 (<3.5-17.0) ng/L NT-Pro-B Natriuret Pep 134.0 (<300) pg/mL Total Protein 7.8 (6.5-8.0) g/dL Albumin 4.0 (3.5-5.0) g/dL TSH 5.06 H (0.32-4.0) uIU/mL Free T4 1.05 (0.71-1.85) ng/dL Independent Interpretation I performed an independent interpretation of an: EKG, Plain X-Ray (No pulmonary edema), Ultrasound (No for DVT) and Vq/Perfusion Scan (Low probability PE) Interpretation: Rate: 99 Rhythm: Normal sinus rhythm [place]: Left, LVH Normal P waves. Normal ADRIAN. Normal QRS complex. ST T wave : She has slight ST-elevation in lead V2 but no other contiguous elevation, no signs of STEMI qTC: 449 prior studies: No STEMI The study has been interpreted contemporaneously by me. . Radiology Impression Discussion of test interpretation with radiology: I have reviewed the radiologist's reading. Independent Historian Clinical information obtained from an independent historian. History obtained from or confirmed by: EMS External Record Review External record reviewed: Outpatient record Prescription Management I considered prescription management with: Other Discharge Plan Discharge Clinical Impression: Lower extremity edema Patient Disposition: Home, Self-Care Instructions: Leg Edema (ED) Additional Instructions: Your labs for congestive heart failure, kidney disease were normal and reassuring Your thyroid test showed being slightly underactive but nothing severe to causes swelling There was no blood clot seen on your DVT study, your chest x-ray was clear, your perfusion test did not show any blood clot At this time given the edema is bothersome to you I think we should try a low dose Lasix for 3 days and compression stocking Please make sure you follow up with your primary care doctor next week Return for any worsening symptoms or concerns such as fever over 100.4, increased swelling, chest pain trouble breathing, or any other concerns Prescriptions: New furosemide [Lasix] 20 mg tablet 20 mg PO DAILY Qty: 3 0RF (DME) comp.stocking,knee,long,medium Misc See Rx Instructions .Route Qty: 12 0RF Rx Instructions: As directed No Action levothyroxine 75 mcg tablet 75 mcg PO DAILY@0600 gabapentin 300 mg capsule 300 mg PO BID calcium carbonate-vitamin D3 600 mg-10 mcg (400 unit) tablet 1 tab PO BID brimonidine-timolol [Combigan] 0.2-0.5 % drops 1 drp ophthalmic (eye) BID melatonin 5 mg tablet 5 mg PO BEDTIME multivitamin with folic acid [Daily-Vira (with folic acid)] 400 mcg tablet 1 tab PO DAILY latanoprost 0.005 % drops 1 drp ophthalmic (eye) BEDTIME acetaminophen [Tylenol] 325 mg Tablet 650 mg PO Q6H PRN (Reason: Pain) oxycodone 5 mg Tablet 5 mg PO Q4H PRN (Reason: Pain, Moderate(Pain Scale 4-6)) Qty: 24 0RF Rx Instructions: Partial Fill upon patient request. polyethylene glycol 3350 17 gram Powder In Packet 17 g PO DAILY Qty: 30 0RF Print Language: Arabic
--- NOTE | 2025-08-17 09:37 | ECG_ITS ---
Test Reason : EDEMA Blood Pressure : */* mmHG Vent. Rate : 99 BPM Atrial Rate : 99 BPM P-R Int : 142 ms QRS Dur : 82 ms QT Int : 350 ms P-R-T Axes : 32 -26 49 degrees QTcB Int : 449 ms Normal sinus rhythm Moderate voltage criteria for LVH, may be normal variant ( R in aVL , [employer] product ) Septal infarct , age undetermined Abnormal ECG When compared with ECG of 09-Sep-2009 19:13, MANUAL COMPARISON REQUIRED PREVIOUS ECG IS INCOMPATIBLE Referred By: Sushila Acevedo Electronically Signed By: Yoseph Hollis
[2025-08-17 09:40] VITALS: BP 114/51; BP 168/98; PULSE 102; PULSE 112; RESP 18; TEMP 36.5; O2SAT 100; O2SAT 98; BMI 33.7
[2025-08-17 09:57] LABS: MANUAL DIFF FLAG NO
[2025-08-17 10:00] LABS: Hematocrit 37.1 % (37.0-47.0); Hemoglobin 12.0 g/dl (12.0-16.0); Imm Gran Abs Auto 0.01 X10*3/uL (0.00-0.03); Imm Gran Pct Auto 0.2 % (0.0-0.4); Lymphocytes Absolute Auto 2.2 X10*3/uL (1.2-4.9); Mean Corpuscular HGB Conc 32.3 g/dl (31.0-35.0); Mean Corpuscular Hemoglobin 30.9 pg (27.0-33.0); Mean Corpuscular Volume 95.6 fL (80.0-98.0); NRBC Abs Auto 0.000 X10*3/uL (0.0-0.012); NRBC Pct Auto 0.0 /100WBC (0.0-0.2); Platelet Count 197 X10*3/uL (160-400); Red Blood Count 3.88 X10*6/uL (4.20-5.50); White Blood Count 5.6 X10*3/uL (4.8-10.8)
--- NOTE | 2025-08-17 10:12 | PC.NURSE ---
Attempt to leave for Elder, Son, via phone. [phone] but mailbox was full.
[2025-08-17 10:13] LABS: Alanine Aminotransferase 18 U/L (0-31); Albumin Level 4.0 g/dL (3.5-5.0); Alkaline Phosphatase 90 U/L (39-117); Anion Gap 10 (12-20); Aspartate Amino Transferase 34 U/L (5-31); Blood Urea Nitrogen 22 mg/dL (9-16); Calcium 9.8 mg/dL (8.4-10.2); Carbon Dioxide 31 mmol/L (22-29); Chloride 108 mmol/L (96-108); Creatinine Clr Calc Pharmacy 46.8; Estimated Glomerular Filt Rate > 60; Magnesium 2.0 mg/dL (1.6-2.6); Potassium 3.7 mmol/L (3.3-5.1); Sodium 145 mmol/L (135-145); Total Protein 7.8 g/dL (6.5-8.0)
[2025-08-17 10:20] LABS: NT Pro B Type Natriuretic Pept 134.0 pg/mL (<300)
[2025-08-17 10:21] LABS: Troponin-I High Sensitivity 3.0 ng/L (<3.5-17.0)
[2025-08-17 11:48] LABS: Free T4 (Free Thyroxine) 1.05 ng/dL (0.71-1.85)
--- NOTE | 2025-08-17 12:11 | PC.NURSE ---
Plan for patient to have VQ scan shortly. Dr. Acevedo aware. Patient sleeping at this time, respirations even/unlabored. Care ongoing by this RN.
[2025-08-17 12:15] VITALS: BP 115/60; PULSE 79; RESP 13; TEMP 36.7; O2SAT 98
--- NOTE | 2025-08-17 12:17 | PC.NURSE ---
Away for VQ scan, brought to Nuclear Medicine by transport (Sayda). Left ED at 12:17pm.
--- OUTSIDE RECORDS SUMMARY | 2025-08-17 13:44 | XMS_ITS | Encounter Summary ---
Author Organization [employer] Address [address] [facility] [facility] [address] [place] [address] Care Team Providers Care Rn L And D Name Role Phone Unavailable Primary Care Provider Unavailabl e Reason for Visit * Reason Onset Date Comments [facility] Hours 04/09/2024 Encounter Details Date Type Department Care Team (Late st Contact Info) Description 04/09/2024 Telephone [facility] [address], [place] [phone] Patricio Gordon MD [address] [place], [place] [phone] [facility] Hours Social History Tobacco Use Types Packs/Day Years Used Date Smoking Tobacco: Never Assessed Comments Unknown Sex and Gender Information Value Date Recorded Sex Assigned at Female 03/27/2024 4:12 PM EDT Legal Sex Female 4:11 PM EDT Gender Identity Female 03/27/2024 4:12 PM EDT Sexual Orientation Not on file documented as of this encounter Miscellaneous Notes * Telephone Encounter - Tank Chan - 04/09/2024 3:55 PM EDT Tc from [facility] wanted to inform she will be putting in [facility] KIL[facility]URNER hours for pt. [employer] advised pt is on waiting list and has not yet been assigned to a pcp but will be leaving general message in chart. If any questions you can contact [facility] at [phone]. documented in this encounter Plan of Treatment Not on file documented as of this encounter Visit Diagnoses Not on filedocumented in this encounter
--- OUTSIDE RECORDS SUMMARY | 2025-08-17 13:44 | XMS_ITS | Clinical Summary ---
Author Organization [employer] Address [address] [facility] [address] [place] [address] Care Team Providers Care Quotation Checker Name Role Phone Unavailable Primary Care Provider Unavailabl e Social History Tobacco Use Types Packs/Day Years Used Date Smoking Tobacco: Never Assessed Comments Unknown Sex and Gender Information Value Date Recorded Sex Assigned at Female 03/27/2024 4:12 PM EDT Legal Sex Female 4:11 PM EDT Gender Identity Female 03/27/2024 4:12 PM EDT Sexual Orientation Not on file Plan of Treatment Health Maintenance Due Date Last Done Comments Depression Screening 1935 SDOH Screening 1935 Alcohol/Substance Use Screening 1949 Tobacco Screening 1947 Hepatitis A Vaccines (1 of 2 - Risk 2-dose series) 1956 Hepatitis B Vaccines (1 of 3 - Risk 3-dose series) 1997 RSV Patients and Patients Aged 60 years or older (1 - 1-dose 75+ series) 2012 Zoster Vaccines (2 of 2) 01/10/2024 11/15/2023 COVID-19 Vaccine ( season) 2025 11/15/2023, 09/05/2022, 08/19/2021, Additional history exists Influenza Vaccine (#1) 2025 4, 11/15/2023, 07/18/2023, Additional history exists DTaP/Tdap/Td Vaccines (3 - Td or Tdap) 07/18/2030 07/18/2020, 06/19/2013, 05/14/2008 Pneumococcal Vaccine: 50+ Years Completed 09/30/2015, 05/14/2008 HIB Vaccines Aged Out No longer eligi ble based on patient's age to complete this topic HPV Vaccines Aged Out No longer eligi ble based on patient's age to complete this topic IPV Vaccines Aged Out No longer eligi ble based on patient's age to complete this topic Meningococcal B Vaccine Aged Out No l onger eligible based on patient's age to complete this topic Meningococcal Vaccine Aged Out No julien millie eligible based on patient's age to complete this topic RSV under 20 months Aged Out No longe r eligible based on patient's age to complete this topic Rotavirus Vaccines Aged Out No longer eligible based on patient's age to complete this topic Insurance [facility]
--- OUTSIDE RECORDS SUMMARY | 2025-08-17 13:44 | XMS_ITS | Clinical Summary ---
Author Organization [facility] [address] [place] [address] [place] [address] [place] [id number] Phone Care Team Providers Care Chinchilla Farmer Name Role Phone Gisselle Christensen MD Primary Care Provider [phone] Allergies Active Allergy Reactions Criticality Noted Date Comments Hydrocodone-Acetaminoph en 05/19/2009 Other Reaction(s): Rash/Dermatitis Iodinated Contrast Media Photosensitivity,Swe lling 03/19/2008 Other Reaction(s): Numbness, tingling or swelling of the lips, tongue or mouth Oxycodone-Acetaminophen Itching 07/15/2009 Simvastatin 12/04/2010 Abnormal LFTs Medications Combigan 0.2-0.5 % ophthalmic solution 4 Active latanoprost (XALATAN) 0.005 % ophthalmic solution INSTILL 1 DROP IN BOTH EYES EVERY NIGHT AT BEDTIME 4 Active lidocaine (LIDODERM) 5 % patch Apply 1 patch topically 1 (one) time each day. Remove & discard patch within 12 hours or as directed by MD. Place 1 Patch onto the skin every 12 hours. Apply for no more than 12 hours in any 24 hour period Active polyethylene glycol (MIRALAX) 17 gram packet Take 17 g by mouth daily as needed for Constipation Active UNABLE TO FIND Med Name: Brimonidine Tartrate-Timolol 0.2-0.5 % Solution INSTILL 1 DROP IN BOTH EYES TWICE DAILY Active multivitamin (Daily-Vira, with folic acid,) tablet Take 1 tablet by mouth 1 (one) time each day. 90 tablet 5 Active calcium carbonate-amaris min D 600 mg-10 mcg (400 unit) per tablet Take 1 tablet by mouth 2 (two) times a day. 180 tablet 5 Active gabapentin (NEURONTIN) 300 mg capsule Take 1 capsule (300 mg total) by mouth 1 (one) time each day. 90 capsule 5 Active levothyroxine (SYNTHROID, LEVOTHROID) 75 mcg tablet Take 1 tablet (75 mcg total) by mouth 1 (one) time each day before breakfast. SKIP SATURDAY 78 tablet 3 5 Active amLODIPine (NORVASC) 5 mg tablet Take 1 tablet (5 mg total) by mouth at bedtime. 90 each 5 Active amLODIPine (NORVASC) 5 mg tablet Take 1 tablet (5 mg total) by mouth at bedtime. 14 each 5 Active melatonin 5 mg tablet Take 1 tablet (5 mg total) by mouth at bedtime. 90 tablet 1 5 Active melatonin 5 mg tablet Take 1 tablet (5 mg total) by mouth at bedtime. 90 tablet 1 5 025 Discontin ued(Reord er) Active Problems Problem Noted Date Diagnosed Date Obesity (BMI 30.0-34.9) 04/23/2022 Patellofemoral arthritis of left knee 10/14/2017 Glaucoma 10/11/2017 Depression 08/10/2014 PTSD (post-traumatic stress disorder) 06/01/2014 Chronic low back pain 07/14/2013 Vasovagal syncope 12/27/2012 Overview (08/18/2024): Positive tilt table test 12/03 Cirrhosis of liver (CMS/HCC V24, CMS/HCC V28) Overview (12/21/2024): By biopsy at [facility] On transplant list , follows with [facility] in [place] Last Assessment & Plan: On transplant list, follows at [facility] in [place] Assessment & Plan (12/29/2024 12:55 PM EDT): Patient is very poor historian today, unaware of medical history. Appears from her chart that her last cirrhosis office visit was 09/2023, her labs and ultrasound at time were unremarkable. When discussing continuity of care with [facility] and [facility], patient states she would prefer to continue with today's appointment despite establishment with a prior GI group. I also suspect if we did not complete today's visit she would likely fail to follow up with [facility]. Will order lab work and U/S for liver cirrhosis surveillance. Further recommendation pending results. Recommended following up with [facility] in 6-months for surveillance, however happy to see the patient again if she would prefer to stay with our office. 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 She developed abdominal discomfort and abnormal LFTs. Patient has a normal chest X ray. Osteopenia 07/14/2008 Overview (08/18/2024): 2008 Anxiety 05/14/2008 GERD (gastroesophageal reflux disease) 8 Hypothyroid 03/19/2008 Pure hypercholesterolemia 03/19/2008 Encounters Date Type Department Care Team Description 07/22/2025 9:00 AM EDT Office Visit Adult Medicine [address] [phone] Moni Olmos PA Primary hypertension (Primary Dx); Elevated blood pressure reading 07/08/2025 8:45 AM EDT Office Visit Adult Medicine [address] [phone] Gisselle Christensen MD Acquired hypothyroidism (Primary Dx); Other cirrhosis of liver (CMS/HCC V24, CMS/HCC V28); Gastroesophageal reflux disease without esophagitis; Pure hypercholesterolemia; Elevated blood pressure reading 05/28/2025 Telephone Adult Medicine [address] [phone] Gisselle Christensen MD from Last 3 Months Immunizations Immunization Administration Dates Next Due H1N1 Inj Preservative Free 09/26/2009 Influenza Quadravalent, 0.5m l (Fluzone High-dose) 65yo and older 09/17/2020 Influenza trivalent, 0.5mL ( Fluad) 65yo and older 07/08/2025,06/22/2024,09/05/2022,08/07 Influenza trivalent, 0.5mL ( Fluzone High-dose) 65yo and older 08/06/2024,07/18/2023,08/23/2022,06/28,08/10/2019,06/11/2017,06/27/2015 Influenza trivalent, with pr eservative (Fluzone; Afluria) 6mo and older 08/04/2018,10/12/2016,07/19/2014,06/19,06/23/2012,07/10/2011,07/24/2010 ,09/26/2009,06/14/2008 Pneumococcal conjugate 13 va lent (Prevnar 13, PCV13) 2mo and older 09/30/2015 Pneumococcal polysaccharide 23 valent (Pneumovax 23) 2yo and older 05/14/2008 Td Tetanus diptheria (Tdvax) 7yo and older 05/14/2008 Tdap Tetanus diptheria acell ular pertussis (Boostrix; Adacel) 7yo and older 07/18/2020,06/19/2013 Zoster recombinant (Shingrix ) 19yo and older 11/15/2023 Surgical History Surgery Date Site/Laterality Comments OTHER SURGICAL HISTORY 05/28/2008 Moderate sigmoid diverticulosis, normal mucosa, random colon bx:Normal OTHER SURGICAL HISTORY 09/14/2009 : cirrhosis, chronic hepatitis, grade 4/4, stage 4/4. Consistent with HCV COLONOSCOPY 08/02/2009 ESOPHAGOGASTRODUODENOSCOPY 12/01/2009 : Nl esophagus, mild gastritis-biopsy:mild reactive gastropathy(Hpylori-), Nl SB OTHER SURGICAL HISTORY ORIF of the left arm with hadware BACK SURGERY : LS COLONOSCOPY 07/2009 Lim tics OTHER SURGICAL HISTORY COLECTOMY PARTIAL W/ANASTOMOSIS CHOLECYSTECTOMY Medical History Medical History Date Comments Anxiety 05/14/2008 GERD (gastroesophageal reflux disease) 8 Vasovagal syncope 12/27/2012 Chronic low back pain 07/14/2013 Cirrhosis of liver (CMS/HCC V24, CMS/HCC V28) 10/25/2009 By biopsy at [facility] On transp lant list , follows with [facility] in [place] Depression, major, recurrent , in remission (CMS/HCC V24) 08/10/2014 Discitis of lumbar region 12/20/2008 Elevated AFP 08/15/2009 Essential hypertension 10/18/2015 H/O chronic hepatitis 05/23/2011 : Treated & cleared History of colonic diverticulitis 2012 : Status post laparoscopic colectomy 2011 History of TTP (thrombotic thrombocytopenic purpura) 2012 Patient was Taken off plasmapheresis in the beginning of May 2010. Dr Decker [place] [facility] 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 She developed abdominal discomfort and abnormal LFTs. Patient has a normal chest X ray. PTSD (post-traumatic stress disorder) 06/01/2014 Pure hypercholesterolemia 03/19/2008 HTN (hypertension) Gallstones Glaucoma 10/11/2017 Family History Medical History Relation Name Comments Blindness Brother Glaucoma,CHF Hypertension Father Cataract, CAD Hypertension Mother CVA, CAD Rheum arthritis Sister Relation Name Status Comments Brother Father Mother Sister Social History Tobacco Use Types Packs/Day Years Used Date Smoking Tobacco: Never Smokeless Tobacco: Never Tobacco Cessation:Counseling Given: Not Answered Alcohol Use Standard Drinks/Week Comments Never 0 (1 standard drink = 0.6 oz pur e alcohol) Housing Instability Answer Date Recorde d Are you worried that in the next 2 months you may not have stable housing? No 12/21/2024 Food Access & Nutrition Answer Date Rec orded Do you have access to a vari ety of food including fruits and vegetables? Yes 12/21/2024 Access to Healthcare Answer Date Record ed Within the last 3 months, ho w many times did you visit the emergency department for your medical care? 0 12/21/2024 Health Literacy Answer Date Recorded How often do you need to hav e someone help you when you read instructions, pamphlets, or other written material from your doctor or pharmacy? Never 12/21/2024 Caregiver: How often do you need to have someone help you when you read instructions, pamphlets, or other written material from your doctor or pharmacy? Not on file 12/21/2024 Financial Risk Answer Date Recorded How hard is it for you to pa y for the very basics like food, housing, medical care, and air conditioning / heating? Not very hard 12/21/2024 Transportation Answer Date Recorded Has the lack of transportati on kept you from meetings, work, or from getting things needed for daily living? No Has the lack of transportati on kept you from medical appointments or from getting medications? No 12/21/2024 Social Isolation Answer Date Recorded How often do you feel lonely or isolated from those around you? Sometimes 12/21/2024 Food Risk Answer Date Recorded Within the past 12 months we worried whether our food would run out before we got money to buy more. Never true 12/21/2024 Within the past 12 months th e food we bought just didn't last and we didn't have money to get more. Never true 12/21/2024 Dependent Care Answer Date Recorded Do you need help finding or paying for care for your loved ones. For example, exceptional children teacher assistant or elderly care for an older adult? No 12/21/2024 Education Answer Date Recorded Do you think completing more education or training, like finishing a GED, going to college, or learning a trade, would be helpful for you? No 12/21/2024 Employment and Income Answer Date Recor ded During the last four weeks, have you been actively looking for work? No 12/21/2024 Living Situation Answer Date Recorded What is your living situation? Unrecognized valu e 12/21/2024 Comments Unknown Sex and Gender Information Value Date Recorded Sex Assigned at Not on file Legal Sex Female 10:22 AM EST Gender Identity Not on file Sexual Orientation Not on file Obstetrics History Last Filed Vital Signs Vital Sign Reading Time Taken Comments Blood Pressure 179/87 07/22/2025 8:[address] rage Pulse 86 07/22/2025 8:55 AM EDT Temperature 35.4 C (95.8 F) 07/22/2025 8:55 AM EDT Respiratory Rate 14 07/22/2025 8:55 AM EDT Oxygen Saturation 96% 07/08/2025 8:32 AM EDT Inhaled Oxygen Concentration - - Weight 77.1 kg (170 lb) 07/22/2025 8:55 AM EDT Height 160 cm (5' 3 ) 07/22/2025 8:55 AM EDT Body Mass Index 30.11 07/22/2025 8:55 AM EDT Plan of Treatment Upcoming Encounters Date Type Department Care Team (Late st Contact Info) Description 09/02/2025 9:45 AM EST Office Visit Adult Medicine [facility] [address] [place], [place] [phone] Gisselle Christensen MD [address] [place], [place] Health Maintenance Due Date Last Done Comments RSV Immunization Adult Patients (1 - 1-dose 75+ series) 2012 Zoster Vaccines (2 of 2) 01/10/2024 11/15/2023 COVID-19 Vaccine ( season) 2025 08/06/2024, 11/15/2023, 09/05/2022, Additional history exists Falls Risk Assessment 12/21/2025 12/21/2024 Medicare Annual Wellness Visit 12/21/2025 12/21/2024 Social Influencers of Health Screening 12/21/2025 12/21/2024 Hypertension/CHF/CAD Annual BMP Blood Test 12/29/2025 12/29/2024, 12/21/2024, 06/22/2024, Additional history exists Osteoporosis Screening (Bone Density Screening) 01/14/2028 01/13/2018 Cholesterol Screening (Lipid Panel) 06/22/2029 06/22/2024, 06/22/2024 DTaP,Tdap,and Td Vaccines (4 - Td or Tdap) 07/18/2030 07/18/2020, 06/19/2013, 05/14/2008 Pneumococcal Vaccine: 50+ Years Completed 09/30/2015, 05/14/2008 Depression Screening Completed 12/21/2024 Influenza Vaccine Completed 07/08/2025, , 06/22/2024, Additional history exists HIB Vaccines Aged Out No longer eligi ble based on patient's age to complete this topic HPV Vaccines Aged Out No longer eligi ble based on patient's age to complete this topic Hepatitis A Vaccines Aged Out No long er eligible based on patient's age to complete this topic Hepatitis B Vaccines Aged Out No long er eligible based on patient's age to complete this topic IPV Vaccines Aged Out No longer eligi ble based on patient's age to complete this topic MMR Vaccines Aged Out No longer eligi ble based on patient's age to complete this topic Meningococcal ACWY Vaccine Aged Out N o longer eligible based on patient's age to complete this topic Meningococcal B Vaccine Aged Out No l onger eligible based on patient's age to complete this topic RSV Immunization Patients Under 20 months Aged Out No longer eligible based on patient's age to complete this topic Varicella Vaccines Aged Out No longer eligible based on patient's age to complete this topic Procedures Procedure Name Priority Date/Time Associated Diagnosis Comments COMPREHENSIVE METABOLIC PANEL Routine 12/29/2024 9:45 AM EDT Cirrhosis of liver without ascites, unspecified hepatic cirrhosis type (CMS/HCC V24, CMS/HCC V28) LIPID PANEL Routine 06/22/2024 DXA BONE DENSITY STUDY 1+ SITS AXIAL SKEL Routine 01/13/2018 10:26 AM EDT Asymptomatic menopausal state from Last 3 Months or Most Recently Relevant to Health Maintenance Results * Comprehensive metabolic panel (12/29/2024 9:45 AM EDT) Sodium 136 133 - 145 mmol/L LAB CHEMISTRY METHOD 12/29/2024 12:11 PM [facility] Potassium 3.8 3.5 - 5.5 mmol/L LAB CHEMISTRY METHOD 12/29/2024 12:11 PM [facility] Chloride 101 96 - 110 mmol/L LAB CHEMISTRY METHOD 12/29/2024 12:11 PM [facility] CO2 30 21 - 32 mmol/L LAB CHEMISTRY METHOD 12/29/2024 12:11 PM [facility] Anion Gap 5 3 - 11 LAB CHEMISTRY METHOD 12/29/2024 12:11 PM [facility] Glucose 81 70 - 100 mg/dL LAB CHEMISTRY METHOD 12/29/2024 12:11 PM [facility] BUN 12 5 - 25 mg/dL LAB CHEMISTRY METHOD 12/29/2024 12:11 PM [facility] Creatinine 0.70 0.50 - 1.10 mg/dL LAB CHEMISTRY METHOD 12/29/2024 12:11 PM [facility] eGFR 84 >=60 mL/min/1. 73m2 LAB CHEMISTRY METHOD 12/29/2024 12:11 PM [facility] Comment:Calculation based on the Chronic Kidney Disease Epidemiology Collaboration (CKD-EPI) equation refit without adjustment for race. BUN/Creatinine Ratio 17.1 LAB CHEMISTRY METHOD 12/29/2024 12:11 PM [facility] Calcium 9.4 8.5 - 10.5 mg/dL LAB CHEMISTRY METHOD 12/29/2024 12:11 PM [facility] AST (SGOT) 23 10 - 42 unit/L LAB CHEMISTRY METHOD 12/29/2024 12:11 PM [facility] ALT (SGPT) 16 10 - 60 unit/L LAB CHEMISTRY METHOD 12/29/2024 12:11 PM [facility] Alkaline Phosphatase 99 42 - 121 unit/L LAB CHEMISTRY METHOD 12/29/2024 12:11 PM [facility] Total Protein 7.7 6.0 - 8.0 g/dL LAB CHEMISTRY METHOD 12/29/2024 12:11 PM [facility] Albumin 3.5 3.2 - 5.0 g/dL LAB CHEMISTRY METHOD 12/29/2024 12:11 PM [facility] Total Bilirubin 0.3 0.0 - 1.4 mg/dL LAB CHEMISTRY METHOD 12/29/2024 12:11 PM [facility] Blood Venous blood specimen / Unknown Venipuncture / Unknown 12/29/2024 9:45 AM EDT 12/29/2024 11:07 AM EDT us Lorna LEVINE LAB BLOOD ORDERABLES Final Resu lt [facility] [address] [place] [address], [place] [phone] * Lipid panel (06/22/2024) LDL/HDL Ratio 3 0 - 4 Triglycerides 120 0 - 150 mg/dL Cholesterol 172 0 - 200 mg/dL HDL 55 >=40 mg/dL LDL Cholesterol 93 0 - 100 mg/dL Blood Venous blood specimen / Unknown Historical Provider LAB BLOOD ORDERABLES Aga l Result * DXA BONE DENSITY STUDY 1+ SITS AXIAL SKEL (01/13/2018 10:26 AM EDT) Anatomical Region Laterality Modality Bone Densitometr y 2017 9:11 AM EDT Narrative 01/13/2018 2:50 PM EDT DEXA SCAN: Lumbar Spine T-score is -2.2. (SD relative to 20-29 y/o adult) Z-score is +0.5. (SD relative to age matched peers) This is considered osteopenia by WHO criteria. Left Femoral Neck T-score is -2.0. Z-score is +0.2. This is considered osteopenia by WHO criteria. Comparison exam(s): Compared to 05/05/2015, there is a 0.6% increase in bone density measured throughout the lumbar spine. A statistically significant, 13.3% decrease in bone density is measured at the left hip compared to 05/05/2015. IMPRESSION: Osteopenia by WHO criteria. This patient has a 13% risk of major osteoporotic fracture and a 3.2% risk of hip fracture over the next 10 years. (World Health Organization Fracture Risk Assessment) [facility] Department of Internal Medicine recommends using National Osteoporosis Foundation (NOF) guidelines in treatment decisions related to osteoporosis. NOF guidelines suggest considering treatment for postmenopausal women and men aged 50 or older presenting with the following: History of hip or vertebral fracture. T-score = -2.5 (DXA) at the femoral neck, total hip, or spine, after appropriate evaluation to exclude secondary causes. Low bone mass (T-score between -1.0 and -2.5 at the femoral neck or spine) AND a 10-year probability of a hip fracture = 3% OR a 10-year probability of a major osteoporosis-related fracture = 20% based on the [place]-adapted WHO algorithm Please note that all treatment decisions require clinical judgment and consideration of individual patient factors, including patient preferences, co-morbidities, previous drug use, risk factors not captured in the FRAX model (e.g., frailty, falls, vitamin D deficiency, increased bone turnover, interval significant decline in bone density) and possible under- or over-estimation of fracture risk by FRAX. Optional alternative screening schedule based on matt Nielson., [facility] October 11, 2011 for patients with osteopenia (based on hip BMD T-score) is as follows: * advanced osteopenia (T scores -2.00 to -2.49), BMD testing every year * moderate osteopenia (T scores -1.50 to -1.99), BMD testing every 5 years mild osteopenia or normal BMD (T scores -1.50 and higher), BMD testing every 15 years Procedure Note Paige Alejandra, DO - 09/11/2022 DEXA SCAN: Lumbar Spine T-score is -2.2. (SD relative to 20-29 y/o adult) Z-score is +0.5. (SD relative to age matched peers) This is considered osteopenia by WHO criteria. Left Femoral Neck T-score is -2.0. Z-score is +0.2. This is considered osteopenia by WHO criteria. Comparison exam(s): Compared to 05/05/2015, there is a 0.6% increase inbone density measured throughout the lumbar spine. A statistically significant, 13.3% decreasein bone density is measured at the left hip compared to 05/05/2015. IMPRESSION: Osteopenia by WHO criteria. This patient has a 13% risk of majorosteoporotic fracture and a 3.2% risk of hip fracture over the next 10 years. (WorldHealth Organization Fracture Risk Assessment) [facility] Department of Internal Medicine recommendsusing National Osteoporosis Foundation (NOF) guidelines in treatment decisions related toosteoporosis. NOF guidelines suggest considering treatment for postmenopausal women and menaged 50 or older presenting with the following: History of hip or vertebral fracture. T-score = -2.5 (DXA) at the femoral neck, total hip, or spine, afterappropriate evaluation to exclude secondary causes. Low bone mass (T-score between -1.0 and -2.5 at the femoral neck or spine)AND a 10-year probability of a hip fracture = 3% OR a 10-year probability of a majorosteoporosis-related fracture = 20% based on the [place]-adapted WHO algorithm Please note that all treatment decisions require clinical judgment andconsideration of individual patient factors, including patient preferences, co- morbidities,previous drug use, risk factors not captured in the FRAX model (e.g., frailty, falls, vitaminD deficiency, increased bone turnover, interval significant decline in bone density) andpossible under- or over-estimation of fracture risk by FRAX. Optional alternative screening schedule based on matt Nielson., NEJMJanuary 2011 for patients with osteopenia (based on hip BMD T-score) is as follows: * advanced osteopenia (T scores -2.00 to -2.49), BMD testing every year * moderate osteopenia (T scores -1.50 to -1.99), BMD testing every 5years mild osteopenia or normal BMD (T scores -1.50 and higher), BMD testingevery 15 years Kalyani Garcia DO [facility] DXA PROCEDURE S Final Result from Last 3 Months or Most Recently Relevant to Health Maintenance Insurance [employer] [place] [address] Care Teams Chinchilla Farmer Relationship Specialty Start Date End Date Gisselle Christensen MD [address] [place] [id number] PCP - General Internal Medicine 03/13/21
--- OUTSIDE RECORDS SUMMARY | 2025-08-17 13:44 | XMS_ITS ---
Author Name Va Torrez NP Address [address] [place] [address] Phone [phone] Organization [facility] Team Providers Care B2B Appointment Setter Name Role Phone Sunita Torrezy Unavailable [phone] Unavailable Unavailable [phone] Unavailable Unavailable Unavailable [facility] Unavailable [phone] Reason for Referral Not Available Allergies, adverse reactions, alerts No known allergies History of medication use Medication Class Instructions Start Date End Date DAILY-VIRA TABLETS TAKE 1 TABLET BY GAYE TH EVERY DAY 2022-01-01 No Data Available Levothyroxine Sodium 75 MCG Tab TAKE 1 TABLET BY MOUTH DAILY 2022-01-22 No Data Available Mapap Arthritis Pain 650 mg Tab ER TAKE 1 TABLET BY MOUTH EVERY 8 HOURS NEEDED FOR PAIN 2022-06-11 No Data Available Combigan 0.2-0.5 % Solution INSTILL 1 DR OP IN BOTH EYES TWICE DAILY 2022-04-18 No Data Available Gabapentin 300 mg Cap TAKE 1 CAPSULE BY MOUTH once daily 2022-06-27 No Data Available Docusate Sodium 100 mg Cap TAKE 1 CAPSUL E BY MOUTH TWICE DAILY NEEDED FOR CONSTIPATION 2022-10-29 2024-03-18 Polyethylene Glycol 3350 17 GM/SCOOP Powder MIX AND TAKE 17 GRAMS BY MOUTH NEEDED CONSTIPATION 2022-10-29 No Data Available Tylenol Extra Strength 500 m g Tab 1 tab every 6 hours as needed for pain 2022-11-28 No Data Available Latanoprost 0.005 % Solution INSTILL 1 D ROP IN BOTH EYES EVERY NIGHT AT BEDTIME 2022-12-18 No Data Available CALCIUM W/D 600-400MG TABLETS TAKE 1 TAB LET BY MOUTH TWICE DAILY 2023-10-14 No Data Available MELATONIN 5MG TABLETS TAKE 1 TABLET BY M OUTH AT BEDTIME 2023-11-11 No Data Available MELATONIN 5 MG TABS No Data Available 2023-11-1112-27-25 CALCIUM 600D (400U) TABLETS TAKE 1 TABLE T BY MOUTH TWICE DAILY 2023-10-14 2024-03-18 CALCIUM/VITAMIN D3 600-10 MG-MCG TABS No Data Available 2024-06-25 No Data Available Daily-Vira Tab No Data Available 2024-06-25 No Data Available MELATONIN 5 MG TABS No Data Available 2024-09-03 No Data Available Fluticasone Propionate 50 MCG/ACT Suspension Nasal use 1 spray in each nostril daily 2025-01-06 No Data Available Loratadine 10 mg Tab take 1 tablet by mo uth daily PRN 2025-01-06 No Data Available Azelastine 0.1 % Solution Nasal 1 spray intranasally 2 times per day in each nostril 2025-01-20 No Data Available Problem List Problem Status Onset Date Resolved Date Synopsis Hypothyroidism Active 2022-11-28 N/A StableLevo thyroxineImportant to take on empty stomachContinue with PCP. Hx of fracture of leg Resolved 2022-11-28 2024-01-03 StableCirca 07/25 022Right knee, pt not sure which bone. Now resolved Other problems related to medical facilities and other health care Active 2024-01-03 N/A CONTINGENCY P GRACIELAMDD Member to call for the following symptoms: Thoughts of self-harm/ Worsening paranoia or delusions/ Increased agitationPlanned intervention: Contact support person: Son (Elder)/ Transfer member to [facility] services/ Remind member of breathing exercises/ Limit extra stimulation Major depressive disorder, recurrent, in remission Active 2022-11-28 N/A StableDenies med ication managementDenies SI/HICoping mechanism, Son is very involved and continue with PCP.10/20/24: PHQ=2, reports feeling lonely at times but she feels well. Has family support. Insomnia Active 2024-11-17 N/A on melatonin 5 mg states very helpful requesting refill, she requested from pcp stated she hasn't had a response Lower back pain Active 2022-11-28 N/A Stable Ga bapentin, TylenolPCP managing pain01/06/25:-continues on gabapentin, tylenol prn. Awaiting on refill request from HCP Allergic rhinitis, Seasonal allergies Active 2025-01-06 N/A 01/06/25:-symp toms suggestive of seasonal allergies-start flonase, claritin-avoid triggers when possible-advised to contact PCP, CB for new or worsening symptoms.01/20/25:-states flonase, claritin not working-Rx for azelastine nasal spray sent to pharmacy today. Advised she can take together with flonase or individually-Avoid triggers when possible-Follow up with PCP, CB for new or worsening symptoms. Unspecified cirrhosis of liver;Hx chronic hep c Active 2022-11-14 N/A Stable Pt appear s unaware of these diagnoses, though they are well-documented. Per records she is on transplant list.Denies etoh use.Continue f/u with PCP.Per patient, no acute issues with the liver or on a transplant list01/20/25:Member went to [facility] on 01/19/25 to complete scheduled imaging/labs for follow up on liver cirrhosis. She had seen the specialist on 12/29/2024 who ordered the tests. The specialist note is as follows (as seen in Outside Care):Patient is very poor historian today, unaware of medical history. Appears from her chart that her last cirrhosis office visit was 09/2023, her labs and ultrasound at time were unremarkable.When discussing continuity of care with [facility] and [facility], patient states she would prefer to continue with today's appointment despite establishment with a prior GI group. I also suspect if we did not complete today's visit she would likely fail to follow up with [facility].Will order lab work and U/S for liver cirrhosis surveillance. Further recommendation pending results. Recommended following up with [facility] in 6-months for surveillance, however happy to see the patient again if she would prefer to stay with our office.Orders:CBC and differential; FutureComprehensive metabolic panel; FutureProthrombin time with INR; FutureAlpha fetoprotein tumor marker; FutureUS Abdomen Limited; FutureIt is also noted that she is on transplant list Encounter for other specified aftercare Active 2025-01-20 N/A 01/20/25:I sp chani with member via phone for post ER follow up. Golgi notes ER admission on 01/19/2025 at [facility]. However, per member, she did not actually go to the ER. States this was an error as she checked in to ER manager intensive care desk erroneously. States she did go to [facility], but went there for a scheduled appt to see the surgeon who performed her cholecystectomy. Although actually member went to complete scheduled tests ordered by her liver specialist. History of recent hospitalization Resolved 2024-03-30 2025-01-20 Hospital name: [facility] Hospital admission date: 03/10/2024 Hospital discharge date: 03/17/2024 Discharge diagnosis: Gallstone pancreatitisLaparoscopic procedure was done on 03/13/24as 4 abdominal incisions. Sites are healing well, saw the surgeon on 03/23/24.He was pleased with everything.Everything is back to baseline except maybe a little pain and PT has been coming and today is her last PT day. The HH RN will still be coming to check on the member once a week till April. Member does not have a PCP as of yet.She has called the CC through [employer] [facility], they were supposed to get back to her but they have not. The daughter will call them back today. Encounters Encounters Type Facility Date of Service Diagnosis/Co mplaint New patient,40-59min; chronic exacerbation, 2 stable chronic or 1 acute illness add add modifier 95 for video (do not use for phone, instead use 20552-86) [facility], ([place]) 11/28/2022 Unspecified cirrhosis of liverPersonal history of other diseases of the digestive systemPersonal history of (healed) traumatic fractureLow back pain, unspecifiedHypothyroidism, unspecifiedMajor depressive disorder, recurrent, unspecified New patient,40-59min; chronic exacerbation, 2 stable chronic or 1 acute illness add add modifier 95 for video (do not use for phone, instead use 76971-76) [facility]/2022 New patient,40-59min; chronic exacerbation, 2 stable chronic or 1 acute illness add add modifier 95 for video (do not use for phone, instead use [id number]) [facility] ([place]/2022 New patient,40-59min; chronic exacerbation, 2 stable chronic or 1 acute illness add add modifier 95 for video (do not use for phone, instead use 79839-89) [facility] ([place]/2022 New patient,40-59min; chronic exacerbation, 2 stable chronic or 1 acute illness add add modifier 95 for video (do not use for phone, instead use 85436-98) [facility] [place]/2022 New patient,40-59min; chronic exacerbation, 2 stable chronic or 1 acute illness add add modifier 95 for video (do not use for phone, instead use 26902-31) [facility] ([place]/2022 New patient,40-59min; chronic exacerbation, 2 stable chronic or 1 acute illness add add modifier 95 for video (do not use for phone, instead use 46954-38) [facility] ([place]/2022 Estab. patient 30-39min; chronic exacerbation, 2 stable chronic or 1 acute illness add add modifier 95 for video, (do not use for phone, instead use 39315-75) [facility] ([place] 01/03/2024 Other problems related to medical facilities and other health careUnspecified cirrhosis of liverPersonal history of other diseases of the digestive systemLow back pain, unspecifiedHypothyroidism, unspecifiedMajor depressive disorder, recurrent, in remission, unspecified Estab. patient 30-39min; chronic exacerbation, 2 stable chronic or 1 acute illness add add modifier 95 for video, (do not use for phone, instead use 22643-82) [facility] [place] 01[place]03/20[place] Estab. patient 30-39min; chronic exacerbation, 2 stable chronic or 1 acute illness add add modifier 95 for video, (do not use for phone, instead use 59666-76) [facility] ([place] 01[place]03/2024 Estab. patient 30-39min; chronic exacerbation, 2 stable chronic or 1 acute illness add add modifier 95 for video, (do not use for phone, instead use 33304-84) [facility] [place]03/2024 Estab. patient 30-39min; chronic exacerbation, 2 stable chronic or 1 acute illness add add modifier 95 for video, (do not use for phone, instead use 62151-93) [facility] ([place] 01/03/2024 Estab. patient 30-39min; chronic exacerbation, 2 stable chronic or 1 acute illness add add modifier 95 for video, (do not use for phone, instead use 94333-22) [facility] ([place] 01/03/2024 Estab. patient 30-39min; chronic exacerbation, 2 stable chronic or 1 acute illness add add modifier 95 for video, (do not use for phone, instead use 08234-42) [facility] ([place] 01/03/2024 No Data Available [facility] ([place] 03/30/2024 Personal history of other medical treatment RN, CN or CP time with patient by phone; use with 1111F, BP, A1c or other CPTII codes [facility], ([place]) 03/18/2024 Encounter for other specifie d aftercare RN, CN or CP time with patient by phone; use with 1111F, BP, A1c or other CPTII codes [facility], ([place]) 03/18/2024 Estab. patient 20-29min; 1 stable chronic or 2 minor; add add modifier 95 for video, modifier 93 for phone [facility] ([place] 10/20/2024 Unspecified cirrhosis of liverLow back pain, unspecifiedHypothyroidism, unspecifiedMajor depressive disorder, recurrent, in remission, unspecifiedPersonal history of other medical treatmentOther problems related to medical facilities and other health carePersonal history of other diseases of the digestive system Estab. patient 20-29min; 1 stable chronic or 2 minor; add add modifier 95 for video, modifier 93 for phone [facility] ([place] 10/20/2024 Estab. patient 20-29min; 1 stable chronic or 2 minor; add add modifier 95 for video, modifier 93 for [facility] ([place]/20/20[place] Estab. patient 20-29min; 1 stable chronic or 2 minor; add add modifier 95 for video, modifier 93 for [facility] 10/20/2024 Estab. patient 20-29min; 1 stable chronic or 2 minor; add add modifier 95 for video, modifier 93 for [facility]/20[place] Estab. patient 20-29min; 1 stable chronic or 2 minor; add add modifier 95 for video, modifier 93 for [facility] ([place] 10/20/2024 Estab. patient 20-29min; 1 stable chronic or 2 minor; add add modifier 95 for video, modifier 93 for phone [facility] ([place] 10/20/2024 Estab. patient 10-29min; 1 minor problem; add add modifier 95 for video, modifier 93 for phone [facility] ([place] 11/17/2024 Insomnia, unspecifiedOther problems related to medical facilities and other health care Estab. patient 10-29min; 1 minor problem; add add modifier 95 for video, modifier 93 for phone [facility] [place]/17/2024 Estab. patient 10-29min; 1 minor problem; add add modifier 95 for video, modifier 93 for phone [facility] [place]/2025 Allergic rhinitis, unspecifiedOther seasonal allergic rhinitisInsomnia, unspecifiedHypothyroidism, unspecifiedLow back pain, unspecifiedOther problems related to medical facilities and other health care Estab. patient 10-29min; 1 minor problem; add add modifier 95 for video, modifier 93 for phone [facility] [place]/20[place] Estab. patient 10-29min; 1 minor problem; add add modifier 95 for video, modifier 93 for [facility] [place] 01/20/2025 Encounter for other specifie d aftercareUnspecified cirrhosis of liverPersonal history of other diseases of the digestive systemAllergic rhinitis, unspecifiedOther seasonal allergic rhinitis Estab. patient 10-29min; 1 minor problem; add add modifier 95 for video, modifier 93 for [facility] [place] 01/20/2025 Vital Signs Date of Collection Vitals 2022-11-28 13:27:36 Height - 157.48 cmWe ight - 72.58 kgBody Mass Index (BMI) - 29.26 kg/m2 2024-01-03 09:22:41 Height - 157.48 cmWe ight - 72.58 kgBody Mass Index (BMI) - 29.26 kg/m2 2024-10-20 08:42:27 Weight - 68.04 kgBod y Mass Index (BMI) - 27.44 kg/m2 Social History Social History Social History Observation Description Effec tive Time Current Smoking Status Never smoker 2025-07- 5 Sex Female Gender identity Woman History of Procedures Procedures Service Procedure code Service date Servicing provider Phone# New patient,40-59min; chronic exacerbation, 2 stable chronic or 1 acute illness add add modifier 95 for video (do not use for phone, instead use [id number]) 17240 2022-11-28 No Data Available No Data Availa ble Pain Assessment - NO pain present (1126F) 1126F 2022-11-28 No Data Available No Data A vailable Medication List Documented (1159F) 1159F 2022-11-28 No Data Available No Data Abbey ilable Medication Review by prescribing provider or pharmacist documented (1160F) 1160F 2022-11-28 No Data Available No Data Abbey ilable Functional Status Assessed (1170F) 1170F 2022-11-28 No Data Available No Data Avail able Advance Care Directive Advance care planning discussion documented in the medical record (1158F) 1158F 2022-11-28 No Data Available No Data Availa ble BMI obtained (3008F) 3008F 2022-11-28 No Data Availab le No Data Available Estab. patient 30-39min; chronic exacerbation, 2 stable chronic or 1 acute illness add add modifier 95 for video, (do not use for phone, instead use 93485-00) 40578 2024-01-03 No Data Available No Data Availa ble Medication List Documented (1159F) 1159F 2024-01-03 No Data Available No Data Abbey ilable Medication Review by prescribing provider or pharmacist documented (1160F) 1160F 2024-01-03 No Data Available No Data Abbey ilable Pain Assessment - NO pain present (1126F) 1126F 2024-01-03 No Data Available No Data A vailable Advance Care Directive Advance care planning discussion documented in the medical record (1158F) 1158F 2024-01-03 No Data Available No Data Availa ble BMI obtained (3008F) 3008F 2024-01-03 No Data Availab le No Data Available Advance care planning discussed and documented advance care plan or surrogate decision-maker was documented in the medical record. (1123F) 1123F 2024-01-03 No Data Available No Data Availa ble No Data Available 62303 2024-03-30 No Data Available No Data Available RN, CN or CP time with patient by phone; use with 1111F, BP, A1c or other CPTII codes 33549 2024-03-18 No Data Available No Data Avai lable Medications prescribed in hospital were reviewed and reconciled against what they were taking prior to admission during today's visit. (1111F) 1111F 2024-03-18 No Data Available No Data Availa ble Estab. patient 20-29min; 1 stable chronic or 2 minor; add add modifier 95 for video, modifier 93 for phone 34854 2024-10-20 No Data Available No Data Availa ble Medication List Documented (1159F) 1159F 2024-10-20 No Data Available No Data Abbey ilable Medication Review by prescribing provider or pharmacist documented (1160F) 1160F 2024-10-20 No Data Available No Data Abbey ilable Functional Status Assessed (1170F) 1170F 2024-10-20 No Data Available No Data Avail able Advance Care Directive Advance care planning discussion documented in the medical record (1158F) 1158F 2024-10-20 No Data Available No Data Availa ble Advance care planning discussed and documented advance care plan or surrogate decision-maker was documented in the medical record. (1123F) 1123F 2024-10-20 No Data Available No Data Availa ble Pain Assessment - NO pain present (1126F) 1126F 2024-10-20 No Data Available No Data A vailable Estab. patient 10-29min; 1 minor problem; add add modifier 95 for video, modifier 93 for phone 57057 2024-11-17 No Data Available No Data Availa ble Medication List Documented (1159F) 1159F 2024-11-17 No Data Available No Data Abbey ilable Estab. patient 10-29min; 1 minor problem; add add modifier 95 for video, modifier 93 for phone 90116 2025-01-06 No Data Available No Data Availa ble Medication List Documented (1159F) 1159F 2025-01-06 No Data Available No Data Abbey ilable Estab. patient 10-29min; 1 minor problem; add add modifier 95 for video, modifier 93 for phone 68991 2025-01-20 No Data Available No Data Availa ble Medication List Documented (1159F) 1159F 2025-01-20 No Data Available No Data Abbey ilable Functional Status Functional Category Effective Dates ADL: Bathing: Needs assistan ceDressing: Needs assistanceEating: IndependentAmbulation: Some assistanceTransferring: Needs assistanceToileting: IndependentIADL: Medication: Needs AssistanceMeal Prep: Needs AssistanceShopping: Needs AssistanceHousekeeping: Needs AssistanceFalls in last 6 Months: No. 2024-01-03 Uses walker to ambulate. 2024-01-03 Mental Status Status Date AOx3 2024-01-03 Assessments Date of Service Assessments 2022-11-28 13:27:36 Unspecified cirrhosi s of liver;Hx chronic hep cHx of fracture of legLower back painHypothyroidMajor depressive disorder, recurrent, unspecified 2024-01-03 09:22:41 Other problems relat ed to medical facilities and other health careUnspecified cirrhosis of liver;Hx chronic hep cLower back painHypothyroidismMajor depressive disorder, recurrent, in remission 2024-03-30 06:38:17 History of recent ho spitalization [Z92.89]> Hospital name: [facility] Hospital admission date: 03/10/2024 Hospital discharge date: 03/17/2024 Discharge diagnosis: Gallstone pancreatitisLaparoscopic procedure was done on 03/13/24 2024-10-20 08:42:27 Other problems relat ed to medical facilities and other health careUnspecified cirrhosis of liver;Hx chronic hep cLower back painHypothyroidismMajor depressive disorder, recurrent, in remissionHistory of recent hospitalization 2024-11-17 11:16:10 Other problems relat ed to medical facilities and other health careInsomnia 2025-01-06 05:24:36 Allergic rhinitis, S easonal allergiesInsomniaHypothyroidismLower back painOther problems related to medical facilities and other health care 2025-01-20 06:46:15 Encounter for other specified aftercareUnspecified cirrhosis of liver;Hx chronic hep cAllergic rhinitis, Seasonal allergies Plan of Care Date of Service Plans 2022-11-28 13:27:36 Pain Assessment - NO pain documented (1126F)Medication Review by prescribing provider or pharmacist documented (1160F)Medication List Documented (1159F)Functional Status Assessed (1170F)BMI obtained (3008F)Televideo new patient,40-59min; chronic exacerbation, 2 stable chronic or 1 acute illness add modifier 95Continue to see PCP. Follow-up with [facility] as needed for any acute or disease education needs that may arise.Pt appears unaware of these diagnoses, though they are well-documented. Per records she is on transplant list.Denies etoh use.Circa 2Right knee, pt not sure which bone. Now resolvedGabapentinTylenolPCP managing painLevothyroxineImportant to take on empty stomachNot in treatment, will FU.Son is very involved. 2024-01-03 09:22:41 Medication Review by prescribing provider or pharmacist documented (1160F)Medication List Documented (1159F)Functional Status Assessed (1170F)Advance Care Directive Advance care planning discussion documented in the medical record (1158F)BMI obtained (3008F)Televideo 30-39min; chronic exacerbation, 2 stable chronic or 1 acute illness add modifier 95Advance care planning discussed and documented advance care plan or surrogate decision-maker was documented in the medical record. (1123F)Pain Assessment - NO pain documented (1126F)Continue to see PCP. Follow-up with [facility] as needed for any acute or disease education needs that may arise.CONTINGENCY PLANMDD Member to call for the following symptoms: Thoughts of self-harm/ Worsening paranoia or delusions/ Increased agitationPlanned intervention: Contact support person: Son (Elder)/ Transfer member to [facility] services/ Remind member of breathing exercises/ Limit extra stimulationStable Pt appears unaware of these diagnoses, though they are well-documented. Per records she is on transplant list.Denies etoh use.Continue f/u with PCP.Stable Gabapentin, TylenolPCP managing painStableLevothyroxineImportant to take on empty stomachContinue with PCP.StableDenies medication managementDenies SI/HICoping mechanism, Son is very involved and continue with PCP. 2024-03-30 06:38:17 [Z92.89] Has 4 abdom inal incisions. Sites are healing well, saw the surgeon on 03/23/24.He was pleased with everything.Everything is back to baseline except maybe a little pain and PT has been coming and today is her last PT day. The HH RN will still be coming to check on the member once a week till April. Member does not have a PCP as of yet.She has called the CC through [facility], they were supposed to get back to her but they have not. The daughter will call them back today.F/u per call ryne and prn. 2024-10-20 08:42:27 Functional Status As sessed (1170F)Advance Care Directive Advance care planning discussion documented in the medical record (1158F)Advance care planning discussed and documented advance care plan or surrogate decision-maker was documented in the medical record. (1123F)Estab. patient 20-29min; 1 stable chronic or 2 minor; add add modifier 95 for video, modifier 93 for phoneMedication List Documented (1159F)Medication Review by prescribing provider or pharmacist documented (1160F)Pain Assessment - NO pain present (1126F)Continue to see PCP. [facility] or disease education needs that may arise.CONTINGENCY PLANMDD Member to call for the following symptoms: Thoughts of self-harm/ Worsening paranoia or delusions/ Increased agitationPlanned intervention: Contact support person: Son (Elder)/ Transfer member to [facility] services/ Remind member of breathing exercises/ Limit extra stimulationStable Pt appears unaware of these diagnoses, though they are well-documented. Per records she is on transplant list.Denies etoh use.Continue f/u with PCP.Per patient, no acute issues with the liver or on a transplant listStable Gabapentin, TylenolPCP managing painStableLevothyroxineImportant to take on empty stomachContinue with PCP.StableDenies medication managementDenies SI/HICoping mechanism, Son is very involved and continue with PCP.10/20/24: PHQ=2, reports feeling lonely at times but she feels well. Has family support.Hospital name: [facility] Hospital admission date: 03/10/2024 Hospital discharge date: 03/17/2024 Discharge diagnosis: Gallstone pancreatitisLaparoscopic procedure was done on 03/13/24as 4 abdominal incisions. Sites are healing well, saw the surgeon on 03/23/24.He was pleased with everything.Everything is back to baseline except maybe a little pain and PT has been coming and today is her last PT day. The HH RN will still be coming to check on the member once a week till April. Member does not have a PCP as of yet.She has called the CC through [facility], they were supposed to get back to her but they have not. The daughter will call them back today. 2024-11-17 11:16:10 Estab. patient 10-29 min; 1 minor problem; add add modifier 95 for video, modifier 93 for phoneContinue to see PCP. [facility] needed for any acute or disease education needs that may arise 15/04.CONTINGENCY PLANMDD Member to call for the following symptoms: Thoughts of self-harm/ Worsening paranoia or delusions/ Increased agitationPlanned intervention: Contact support person: Dwayne Melendez)/ Transfer member to [facility] services/ Remind member of breathing exercises/ Limit extra stimulationon melatonin 5 mg states very helpful requesting refill, she requested from pcp stated she hasn't had a response 2025-01-06 05:24:36 Estab. patient 10-29 min; 1 minor problem; add add modifier 95 for video, modifier 93 for phoneContinue to see PCP. Follow-up with [facility] as needed for any acute or disease education needs that may arise 15/04.01/06/25:-symptoms suggestive of seasonal allergies-start flonase, claritin-avoid triggers when possible-advised to contact PCP, CB for new or worsening symptoms.on melatonin 5 mg states very helpful requesting refill, she requested from pcp stated she hasn't had a responseStableLevothyroxineImportant to take on empty stomachContinue with PCP.Stable Gabapentin, TylenolPCP managing pain01/06/25:-continues on gabapentin, tylenol prn. Awaiting on refill request from [facility]ONTING[facility] PLANMDD Member to call for the following symptoms: Thoughts of self-harm/ Worsening paranoia or delusions/ Increased agitationPlanned intervention: Contact support person: Dwayne Melendez)/ Transfer member to [facility] services/ Remind member of breathing exercises/ Limit extra stimulation 2025-01-20 06:46:15 Estab. patient 10-29 min; 1 minor problem; add add modifier 95 for video, modifier 93 for phoneContinue to see PCP. Follow-up with [facility] as needed for any acute or disease education needs that may arise 15/04.01/20/25:I spoke with member via phone for post ER follow up. Sissy notes ER admission on 01/19/2025 at [facility]. However, per member, she did not actually go to the ER. States this was an error as she checked in to ER manager intensive care desk erroneously. States she did go to [facility], but went there for a scheduled appt to see the surgeon who performed her cholecystectomy. Although actually member went to complete scheduled tests ordered by her liver specialist.Stable Pt appears unaware of these diagnoses, though they are well-documented. Per records she is on transplant list.Denies etoh use.Continue f/u with PCP.Per patient, no acute issues with the liver or on a transplant list01/20/25:Member went to [facility] on 01/19/25 to complete scheduled imaging/labs for follow up on liver cirrhosis. She had seen the specialist on 12/29/2024 who ordered the tests. The specialist note is as follows (as seen in Outside Care):Patient is very poor historian today, unaware of medical history. Appears from her chart that her last cirrhosis office visit was 09/2023, her labs and ultrasound at time were unremarkable.When discussing continuity of care with [facility] and [facility], patient states she would prefer to continue with today's appointment despite establishment with a prior GI group. I also suspect if we did not complete today's visit she would likely fail to follow up with [facility].Will order lab work and U/S for liver cirrhosis surveillance. Further recommendation pending results. Recommended following up with [facility] in 6-months for surveillance, however happy to see the patient again if she would prefer to stay with our office.Orders:CBC and differential; FutureComprehensive metabolic panel; FutureProthrombin time with INR; FutureAlpha fetoprotein tumor marker; FutureUS Abdomen Limited; FutureIt is also noted that she is on transplant list01/06/25:-symptoms suggestive of seasonal allergies-start flonase, claritin-avoid triggers when possible-advised to contact PCP, CB for new or worsening symptoms.01/20/25:-states flonase, claritin not working-Rx for azelastine nasal spray sent to pharmacy today. Advised she can take together with flonase or individually-Avoid triggers when possible-Follow up with PCP, CB for new or worsening symptoms. Goals Date Goal 2024-01-03 Contact us if martineo ping worsening depression, uncontrolled hypothyroidism s/sx, jaundice, or worsening pain. 2024-01-03 Continue taking medi cations as prescribed and f/u care and monitoring with PCP every 3-6 months. 2024-01-03 Remember to adhere t o dietary interventions and exercise as tolerable. 2024-11-17 Continue taking medi cations as directed and keep all follow up appointments with established PCP and Specialist. 2024-11-17 At least 50% of time spent counseling patient, discussing diagnosis, treatment plan, complicance, and coordinating follow up care. 2025-01-06 Continue taking medi cations as directed and keep all follow up appointments with established PCP and Specialist. 2025-01-06 At least 50% of time spent counseling patient, discussing diagnosis, treatment plan, complicance, and coordinating follow up care. 2025-01-20 Discuss with member any memory concerns/word recall testing at next visit. 2025-01-20 Continue taking medi cations as directed and keep all follow up appointments with established PCP and Specialist. 2025-01-20 At least 50% of time spent counseling patient, discussing diagnosis, treatment plan, complicance, and coordinating follow up care. Health Concerns Date Concern 2025-01-20 Visit completed via audio by telephone. Patient/Guardian agreed to visit via telehealth.Time spent in visit: 2025-01-20 Most recent hospital stay(s) or ER visit(s) and precipitating factors: denies recent ER visits as noted below 2025-01-20 HEDIS review: review ed 2025-01-20 Member reports jairo nued sneezing, nasal itching, and nasal congestion. I prescribed to her flonase and claritin on 01/06/25 which she received. She states she has been taking it, but not working. 2025-01-20 I spoke with member via phone for post ER follow up. Golgi notes ER admission on 01/19/2025 at [facility]. However, per member, she did not actually go to the ER. States this was an error as she checked in to ER manager intensive care desk erroneously. States she did go to [facility], but went there for a scheduled appt to see the surgeon who performed her cholecystectomy.After visit with member, I went on to review her records further in Outside Care for additional clarification. Member went to [facility] on 01/19/25 to complete scheduled imaging/labs for follow up on liver cirrhosis. She had seen the specialist on 12/29/2024 who ordered the tests. The specialist note is as follows (as seen in Outside Care):Patient is very poor historian today, unaware of medical history. Appears from her chart that her last cirrhosis office visit was 09/2023, her labs and ultrasound at time were unremarkable.When discussing continuity of care with [facility] and [facility], patient states she would prefer to continue with today's appointment despite establishment with a prior GI group. I also suspect if we did not complete today's visit she would likely fail to follow up with [facility].Will order lab work and U/S for liver cirrhosis surveillance. Further recommendation pending results. Recommended following up with [facility] in 6-months for surveillance, however happy to see the patient again if she would prefer to stay with our office.Orders:CBC and differential; FutureComprehensive metabolic panel; FutureProthrombin time with INR; FutureAlpha fetoprotein tumor marker; FutureUS Abdomen Limited; Future
[2025-08-17 14:16] VITALS: BP 110/63; PULSE 76; RESP 14; TEMP 36.7; O2SAT 98
[2025-08-17 14:25] VITALS: BP 113/33; PULSE 100; RESP 18; TEMP 36.6; O2SAT 97
== END 2025-08-17 15:02 | disposition home or self-care (01) ==
PROVIDERS: Emergency Provider Emergency Medicine; PCP Internal Medicine
DX: R60.9 Edema, unspecified (principal); M79.604 Pain in right leg; R00.0 Tachycardia, unspecified; E03.9 Hypothyroidism, unspecified; Z79.899 Other long term (current) drug therapy
CPT/HCPCS: 36415; 71045; 78580; 80048; 80076; 83735; 83880; 84439; 84443; 84484; 85025; 93005; 93970; 99284; A9540

== ENCOUNTER → 2025-08-17 09:37 | Outpatient (BNV) | payer OTHER, SELFPAY | PROVIDERS: Emergency Provider Emergency Medicine; PCP Internal Medicine; Visit Provider Internal Medicine Cardiovascular Disease | DX: R94.31 Abnormal electrocardiogram [ECG] [EKG] (principal); R60.9 Edema, unspecified | CPT/HCPCS: 93010 ==

== ENCOUNTER → 2025-08-17 09:46 | Outpatient (BNV) | payer OTHER, SELFPAY | PROVIDERS: Emergency Provider Emergency Medicine; PCP Internal Medicine; Visit Provider Radiology Diagnostic Radiology | DX: R00.0 Tachycardia, unspecified (principal); R60.0 Localized edema; M79.661 Pain in right lower leg; M79.662 Pain in left lower leg; R22.41 Localized swelling, mass and lump, right lower limb; R22.42 Localized swelling, mass and lump, left lower limb; Z03.89 Encounter for observation for other suspected diseases and conditions ruled out | CPT/HCPCS: 71045; 78580; 93970 ==